=== PATIENT | female | born 1950 | race Two or more races ===

== ENCOUNTER 2025-03-02 17:44 | Emergency (ER) | payer OTHER, SELFPAY ==
--- NOTE | ~2025-03-02 | XR_ITS ---
CLINICAL HISTORY: cellulitis, ?osseous involvement 3 view right hand Comparison: None Findings: Osteopenia. No acute fracture. Diffuse osteoarthritic changes throughout the interphalangeal, 1st carpometacarpal and radiocarpal joints. No erosions. No radiopaque foreign body. Diffuse soft tissue swelling worse along the dorsum of the hand. Heterotopic ossification or chronic avulsion injury of the base of the 5th proximal phalanx with well corticated margins. IMPRESSION: No acute fracture. Diffuse cellulitis. This document has been electronically signed by: Eliud Gaston MD on 03/02/2025 19:49:20
[2025-03-02 18:16] VITALS: BP 187/77; PULSE 91; RESP 18; TEMP 37.1; O2SAT 94; BMI 32.3
--- NOTE | 2025-03-02 18:16 | ED.EXTPRO ---
HPI - Extremity Problem General Chief complaint: Extremity Problem Stated complaint: Right hand injury Time Seen by Provider: 03/02/25 22:00 Source: patient Mode of arrival: ambulatory Limitations: no limitations History of Present Illness ED Provider: HPI Narrative: Patient's history of diabetes noticed small redness on the dorsum of the right hand on 02/28 no open wound seen at urgent care center started on doxycycline comes here for worsening of the redness spreading all the way to the forearm and the dorsum of the hand no fever no chills no history of gout no history of cellulitis in the past no fever or chills Related Data Previous Rx's ?Medication ?Instructions ?Recorded amoxicillin 875 mg-potassium 1 tab PO BID #20 tabs 03/03/25 clavulanate 125 mg tablet Allergies Allergy/AdvReac Type Severity Reaction Status Date / Time No Known Allergies Allergy Verified 03/02/25 18:20 Review of Systems Review of Systems: Yes all other systems are reviewed and are negative PMFSH Social History Social History Smoked in Last 30 Days: Yes Use of substances other than those prescribed or required for medical reasons: No Advance Directives: No Advance Directives Information Provided: No Do you have a plan to hurt others: No Plan Physical Exam Vital Signs: Vital Signs: Last Vital Signs Temp 98.7 F 03/03/25 01:40 Pulse 74 03/03/25 01:40 Resp 14 03/03/25 01:40 BP 00/00 L 03/03/25 01:40 Pulse Ox 96 03/03/25 01:40 O2 Del Method Room Air 03/03/25 01:40 BMI result Body Mass Index 32.3 Appearance: Alert. Oriented X3. No acute distress. Eyes: No pallor or icterus ENT: Pharynx normal. Oral Mucosa moist Neck: Normal inspection. Neck supple. CVS: Normal heart rate and rhythm. Pulses normal. Respiratory: No respiratory distress. Equal air entry bilateral, no wheezing/rales/rhonchi Abdomen: Soft and nontender. Bowel sounds are present, no mass palpable, no CVA tenderness Skin: Skin warm and dry. Right hand swelling of the dorsum with a erythema no open wound erythematous spreading all the way to the forearm neurovascular intact Extremities: No lower extremity edema. No calf tenderness Neuro: Oriented X 3. No motor deficit. No sensory deficit.No cerebellar signs , cranial nerves II-XII intact Course Course Course Narrative: This is an RME performed by Wally Unger CNP: Additional HPI, ROS, PE not included below will be deferred to primary provider. Patient is a 70-day-old female who presents to emergency department for evaluation she reports that she awoke from sleep 3 days ago with redness and swelling to the hand she thought perhaps she had gotten bit by something in her sleep. She presented to an urgent care that day, was diagnosed with cellulitis, prescribed a course of doxycycline, has taken 4 doses thus far, symptoms have significantly worsened. Can not move/wrist at this point. Denies fevers/ chills. Plan: serum labs, XR Medications Administered Discontinued Medications Generic Name Dose Route Start Last Admin Trade Name Freq PRN Reason Stop Dose Admin Vancomycin HCl 1,500 mg/ 500 mls @ 333.333 mls/hr 03/02/25 22:23 03/03/25 00:52 Sodium Chloride IV 03/02/25 23:52 Infused ONCE ONE Infusion Medical Decision Making Medical Decision Making [facility] Narrative: Patient with worsening of the cellulitis of the right hand without any open wound on oral antibiotics patient is refusing admission at this time will give a dose of vancomycin and add Augmentin , and strongly suggest for her to be admitted Lab Data [facility] Lab Attestation statement: I reviewed the patient's lab results. 03/02/25 18:41 03/02/25 18:41 Labs: Lab Results 03/02/25 Range/Units 18:41 WBC 13.4 H (4.8-10.8) X10*3/uL RBC 4.00 L (4.20-5.50) X10*6/uL Hgb 10.3 L (12.0-16.0) g/dl Hct 31.7 L (37.0-47.0) % MCV 79.3 L (80.0-98.0) fL MCH 25.8 L (27.0-33.0) pg MCHC 32.5 (31.0-35.0) g/dl RDW 14.6 (11.0-16.0) % Plt Count 207 (160-400) X10*3/uL MPV 9.6 (9.4-12.3) fL Immature Gran % (Auto) 0.4 (0.0-0.4) % Neut % (Auto) 74.8 H (45-73) % Lymph % (Auto) 13.5 L (20-40) % [place] % (Auto) 10.4 (2-11) % Eos % (Auto) 0.8 (0-4) % Baso % (Auto) 0.1 (0-2) % Lymph # (Auto) 1.8 (1.2-4.9) X10*3/uL [place] # (Auto) 1.4 H (0.1-1.2) X10*3/uL Eos # (Auto) 0.1 (0.0-0.4) X10*3/uL Baso # (Auto) 0.0 (0.0-0.2) X10*3/uL Abs Immat Gran (auto) 0.05 H (0.00-0.03) X10*3/uL Absolute Neuts (auto) 10.0 H (2.0-8.3) x10*3/uL Absolute Nucleated RBC 0.000 (0.0-0.012) X10*3/uL Nucleated RBC % (auto) 0.0 (0.0-0.2) /100WBC ESR 53 H (0-20) MM/HR Sodium 135 (135-145) mmol/L Potassium 4.4 (3.3-5.1) mmol/L Chloride 102 (96-108) mmol/L Carbon Dioxide 24 (22-29) mmol/L Anion Gap 13 (12-20) BUN 21 H (9-16) mg/dL Creatinine 0.91 (0.5-1.4) mg/dL Estim Creat Clear Calc 49.0 Estimated GFR > 60 Random Glucose 217 H (60-115) mg/dL Lactic Acid 1.4 (0.5-2.0) mmol/L Uric Acid 3.7 (2.4-5.7) mg/dL Calcium 9.2 (8.4-10.2) mg/dL Total Bilirubin 0.3 (0.0-1.0) mg/dL AST 11 (5-31) U/L ALT 9 (0-31) U/L Alkaline Phosphatase 61 (39-117) U/L C-Reactive Protein 6.54 H (< or = 0.50) mg/dL Total Protein 6.4 L (6.5-8.0) g/dL Albumin 3.7 (3.5-5.0) g/dL Discharge Plan Discharge Clinical Impression: Cellulitis Patient Disposition: Left Against Medical Advice Instructions: Cellulitis (ED) Additional Instructions: You have signed against medical advice it is prefer that you need to get IV antibiotics for your infection Continue take your doxycycline Start taking Augmentin 1 tablet twice a day for 10 days Report to the ER if redness/pain does not get better Keep your right arm elevated Prescriptions: New amoxicillin-pot clavulanate 875-125 mg tablet 1 tab PO BID Qty: 20 0RF Stand Alone Forms: Against Medical Advice Interventions: ED Discharge Assessment Last Done: 03/03/25 01:40 Discharge Date/Time: 03/03/25 01:41 Print Language: British
[2025-03-02 18:48] LABS: MANUAL DIFF FLAG NO
[2025-03-02 18:50] LABS: Basophils Percent Auto 0.1 % (0-2); Eosinophils Absolute Auto 0.1 X10*3/uL (0.0-0.4); Eosinophils Percent Auto 0.8 % (0-4); Hematocrit 31.7 % (37.0-47.0); Hemoglobin 10.3 g/dl (12.0-16.0); Imm Gran Abs Auto 0.05 X10*3/uL (0.00-0.03); Imm Gran Pct Auto 0.4 % (0.0-0.4); Lymphocytes Absolute Auto 1.8 X10*3/uL (1.2-4.9); Lymphocytes Percent Auto 13.5 % (20-40); Mean Corpuscular HGB Conc 32.5 g/dl (31.0-35.0); Mean Corpuscular Hemoglobin 25.8 pg (27.0-33.0); Mean Corpuscular Volume 79.3 fL (80.0-98.0); Mean Platelet Volume 9.6 fL (9.4-12.3); Monocytes Absolute Auto 1.4 X10*3/uL (0.1-1.2); Monocytes Percent Auto 10.4 % (2-11); Neutrophils Percent Auto 74.8 % (45-73); Platelet Count 207 X10*3/uL (160-400); Red Cell Distribution Width 14.6 % (11.0-16.0); White Blood Count 13.4 X10*3/uL (4.8-10.8)
[2025-03-02 19:03] LABS: Lactic Acid 1.4 mmol/L (0.5-2.0)
[2025-03-02 19:10] LABS: Alanine Aminotransferase 9 U/L (0-31); Albumin Level 3.7 g/dL (3.5-5.0); Alkaline Phosphatase 61 U/L (39-117); Anion Gap 13 (12-20); Aspartate Amino Transferase 11 U/L (5-31); Bilirubin Total 0.3 mg/dL (0.0-1.0); Blood Urea Nitrogen 21 mg/dL (9-16); C Reactive Protein 6.54 mg/dL (< or = 0.50); Calcium 9.2 mg/dL (8.4-10.2); Carbon Dioxide 24 mmol/L (22-29); Chloride 102 mmol/L (96-108); Estimated Glomerular Filt Rate > 60; Glucose Random 217 mg/dL (60-115); Potassium 4.4 mmol/L (3.3-5.1); Sodium 135 mmol/L (135-145); Total Protein 6.4 g/dL (6.5-8.0); Uric Acid 3.7 mg/dL (2.4-5.7)
[2025-03-02 19:30] LABS: Erythrocyte Sedimentation Rate 53 MM/HR (0-20)
[2025-03-02] MEDS: vancomycin HCL 1,500 MG in 0.9 % Sodium Chloride 500 ML 333.33 MG IV (22:56)
[2025-03-03 01:37] VITALS: BP 00/00; PULSE 74; RESP 14; TEMP 37.1; O2SAT 96
--- NOTE | 2025-03-03 01:39 | PC.NURSE ---
pt refused admission ama formed signed iv removed at discharge pt refused bp on bilat arms states its too tight pt educated on importance of vs pt verbalized understanding of discharge
[2025-03-03 01:40] VITALS: BP 00/00; PULSE 74; RESP 14; TEMP 37.1; O2SAT 96
== END 2025-03-03 01:41 | disposition left against medical advice (07) ==
PROVIDERS: Nurse Practitioner Family; Emergency Provider Internal Medicine
DX: L03.113 Cellulitis of right upper limb (principal); M79.89 Other specified soft tissue disorders; Z53.29 Procedure and treatment not carried out because of patient's decision for other reasons
CPT/HCPCS: 36415; 73120; 80053; 83605; 84550; 85025; 85652; 86140; 87040; 96365; 96366; 99284; J3371

== ENCOUNTER → 2025-03-02 18:21 | Outpatient (BNV) | payer OTHER, SELFPAY | PROVIDERS: Visit Provider Radiology Diagnostic Radiology | DX: L03.113 Cellulitis of right upper limb (principal) | CPT/HCPCS: 73120 ==

== ENCOUNTER 2025-03-04 10:06 | Inpatient (IN) | payer OTHER, SELFPAY ==
[2025-03-04 10:47] VITALS: BP 154/71; PULSE 84; RESP 20; TEMP 37.2; O2SAT 97; BMI 21.2
--- NOTE | 2025-03-04 11:26 | MHC.EDTECH ---
this pct approaches patient in wr to escort them to tech triage area for bloodwork ordered by triage provider. patient states she only had blood drawn one day ago and would rather wait for ed provider to see them first to assess if the blood work is necessary. sourcing internship and provider aware. head charger aware. this pct advised to yunier patient the request of delaying their bloodwork.\ until further evaluation.
--- NOTE | 2025-03-04 11:58 | ED.EXTPRO ---
HPI - Extremity Problem General Chief complaint: Extremity Injury, Upper Stated complaint: arm swelling Time Seen by Provider: 03/04/25 11:58 Source: patient and RN notes reviewed Limitations: no limitations History of Present Illness HPI Narrative: 74-year-old female who denies significant medical history, returns for evaluation of right hand, wrist, swelling and edema. Patient states that she awoke on February 28 to a painful and slightly swollen right wrist. Patient states she went to urgent care at that time and was prescribed doxycycline. Patient states that she has been taking the medication however she had continued swelling. She reported to the emergency department on March 02 in her visit extended into March 03, where she had labs and imaging and was recommended for admission. However the patient states she had an obligation she needed to tend to yesterday and was not able to stay. Patient states she returned today because of continued swelling and redness. Patient states she has had decreased range of motion in her hand and wrist. She has noticed slight decrease in the swelling of her fingers. She was prescribed Augmentin and states she has been taking this as prescribed. She denies any fevers chills nausea or vomiting. Denies any trauma. No history of diabetes. She is unsure if she sustained an insect bite or had some small abrasions to the area of redness. Related Data Previous Rx's ?Medication ?Instructions ?Recorded amoxicillin 875 mg-potassium 1 tab PO BID #20 tabs 03/03/25 clavulanate 125 mg tablet Allergies Allergy/AdvReac Type Severity Reaction Status Date / Time No Known Allergies Allergy Verified 03/04/25 10:47 Review of Systems Constitutional: Constitutional: Denies chills, Denies fever(s) and Denies headache(s) Eyes: Eyes: Denies change in vision and Denies other (No redness.) ENT: Denies headache(s), Denies nasal congestion, Denies nasal discharge, Denies neck pain and Denies sore throat Cardiovascular: Cardiovascular: Denies chest pain, Denies palpitations, Denies dyspnea, Denies dyspnea on exertion and Denies orthopnea Respiratory: Respiratory: Denies cough, Denies dyspnea and Denies dyspnea on exertion Gastrointestinal: Gastrointestinal: Denies abdominal pain, Denies melena, Denies hematochezia, Denies diarrhea, Denies nausea and Denies vomiting Genitourinary: Genitourinary: Denies dysuria and Denies urinary urgency Musculoskeletal: Musculoskeletal: Denies back pain, Denies muscle weakness, Denies neck pain and Denies numbness Integumentary/Breasts: Skin/Breast: Reports rash and Reports skin swelling Neurologic: Denies headache(s), Denies focal weakness and Denies numbness Psychiatric: Psychiatric: Denies depression Endocrine: Endocrine: Denies palpitations [facility] Past Medical History Attestation statement: The following information was validated with the patient. [facility] Narrative: Patient denies significant past medical history. No diabetes. Social History Social History Advance Directives: No Advance Directives Information Provided: Yes Physical Exam Vital Signs: Vital Signs: Last Vital Signs Temp 98.3 F 03/04/25 12:53 Pulse 82 03/04/25 12:53 Resp 16 03/04/25 12:53 BP 133/79 03/04/25 12:53 Pulse Ox 97 03/04/25 12:53 O2 Del Method Room Air 03/04/25 12:53 BMI result Body Mass Index 21.2 Const: General: cooperative and no acute distress Resp: Auscultation: clear to auscultation bilaterally Cardio: Rate: regular rate Rhythm: regular rhythm Skin: Other: Extrem: Other: Chocolate Finisher is 5/5 on the left. 4/5 on the right secondary to edema and pain. The fingers are blanched but motor and sensation is intact. Radial pulses are +2 and equal bilaterally. Decreased range of motion at the right wrist secondary to pain. No epitrochlear or axillary lymphadenopathy. Course Course Course Narrative: 1:45 p.m. reviewed all labs with the patient. She is tolerating antibiotics without difficulty. Message to Dr. Nick for transfer of care. Medications Administered Discontinued Medications Generic Name Dose Route Start Last Admin Trade Name Freq PRN Reason Stop Dose Admin Sodium Chloride 1,000 mls @ 999 mls/hr 03/04/25 12:15 03/04/25 14:03 Ns IV 03/04/25 13:15 Infused .Q1H1M REGINALDO Infusion Cefepime HCl 2 gm/ Sodium 50 mls @ 100 mls/hr 03/04/25 12:09 03/04/25 13:16 Chloride IV 03/04/25 12:38 Infused ONCE ONE Infusion Sodium Chloride 1,476 mls @ 1,476 mls/hr 03/04/25 12:09 03/04/25 14:03 Ns 30 ml/kg infuse over 1 hr (1476 ml) 03/04/25 13:08 1,476 mls/hr IV Administration .Q1H STA Vancomycin HCl 1,250 mg/ 250 mls @ 166.667 mls/hr 03/04/25 12:15 03/04/25 13:19 Sodium Chloride IV 03/04/25 13:44 166.67 mls/hr ONCE ONE Administration Medical Decision Making Medical Decision Making MDM Narrative: 74-year-old female who denies significant past medical history, returns for evaluation of right hand and wrist redness, edema. Patient states that the redness has increased on the dorsal aspect and has also noticed some skin changes on the anterior aspect of the right forearm. She denies any fevers or chills. She does report improved range of motion of her fingers from within the last 24 hours. She remains on doxycycline and Augmentin. The patient is agreeable to repeat labs and IV antibiotics as well as hospital admission. Patient currently has been on antibiotics and she has negative blood cultures from March 02. Defer on repeat blood cultures at this time. X-ray also from this date did not reveal any acute process. Differential Diagnosis Differential Diagnoses: The differential diagnosis associated with the presentation includes Sepsis Cellulitis Abscess Folliculitis Admission/Observation Consideration of admission/observation: Escalation of care including admission/observation considered Consult Healthcare Provider Management of the patient was discussed with: Hospitalist Lab Data [facility] Lab Attestation statement: I reviewed the patient's lab results. 03/04/25 12:37 03/04/25 12:37 Labs: Lab Results 03/04/25 03/04/25 Range/Units 12:37 12:38 WBC 12.9 H (4.8-10.8) X10*3/uL RBC 3.90 L (4.20-5.50) X10*6/uL Hgb 9.9 L (12.0-16.0) g/dl Hct 31.0 L (37.0-47.0) % MCV 79.5 L (80.0-98.0) fL MCH 25.4 L (27.0-33.0) pg MCHC 31.9 (31.0-35.0) g/dl RDW 14.5 (11.0-16.0) % Plt Count 229 (160-400) X10*3/uL MPV 9.5 (9.4-12.3) fL Immature Gran % (Auto) 0.5 H (0.0-0.4) % Neut % (Auto) 77.0 H (45-73) % Lymph % (Auto) 11.6 L (20-40) % [place] % (Auto) 9.8 (2-11) % Eos % (Auto) 0.8 (0-4) % Baso % (Auto) 0.3 (0-2) % Lymph # (Auto) 1.5 (1.2-4.9) X10*3/uL [place] # (Auto) 1.3 H (0.1-1.2) X10*3/uL Eos # (Auto) 0.1 (0.0-0.4) X10*3/uL Baso # (Auto) 0.0 (0.0-0.2) X10*3/uL Abs Immat Gran (auto) 0.07 H (0.00-0.03) X10*3/uL Absolute Neuts (auto) 9.9 H (2.0-8.3) x10*3/uL Absolute Nucleated RBC 0.000 (0.0-0.012) X10*3/uL Nucleated RBC % (auto) 0.0 (0.0-0.2) /100WBC ESR 63 H (0-20) MM/HR Sodium 134 L (135-145) mmol/L Potassium 4.8 (3.3-5.1) mmol/L Chloride 102 (96-108) mmol/L Carbon Dioxide 22 (22-29) mmol/L Anion Gap 15 (12-20) BUN 25 H (9-16) mg/dL Creatinine 0.75 (0.5-1.4) mg/dL Estim Creat Clear Calc 47.3 Estimated GFR > 60 Random Glucose 140 H (60-115) mg/dL Calcium 9.5 (8.4-10.2) mg/dL Magnesium 1.5 L (1.6-2.6) mg/dL Total Bilirubin 0.3 (0.0-1.0) mg/dL Direct Bilirubin 0.1 (0.0-0.5) mg/dL AST 15 (5-31) U/L ALT 10 (0-31) U/L Alkaline Phosphatase 59 (39-117) U/L C-Reactive Protein 11.05 H (< or = 0.50) mg/dL Total Protein 6.6 (6.5-8.0) g/dL Albumin 3.7 (3.5-5.0) g/dL External Record Review External record reviewed: Inpatient record Prescription Management I considered prescription management with: Antibiotic Discharge Plan Discharge Clinical Impression: Cellulitis Qualifiers: Site of cellulitis: extremity Site of cellulitis of extremity: upper extremity Laterality: right Qualified Code(s): L03.113 - Cellulitis of right upper limb Patient Disposition: Admitted As Inpatient Print Language: Greek
--- NOTE | 2025-03-04 11:58 | PC.NURSE ---
Pt met with in room 26. At this time Pt refusing to allow for blood lab draw. Pt states blood work was done at her previous visit (03/02/25) and is not willing to do more. Pt denies pain at this time. Only complaint at this time is swelling to R hand/arm--swelling is interfering with her ability to use her arm. Awaiting ED provider
--- NOTE | 2025-03-04 11:59 | MHC.EDTECH ---
Patient is refusing labs. RN aware.
[2025-03-04] MEDS: 0.9 % Sodium Chloride 1,000 ML 999 ML IV (12:39)
[2025-03-04] MEDS: cefEPime HCl 2 GM in 0.9 % Sodium Chloride 50 ML IV (12:40)
[2025-03-04 12:47] LABS: MANUAL DIFF FLAG NO
[2025-03-04 12:51] LABS: Basophils Percent Auto 0.3 % (0-2); Eosinophils Absolute Auto 0.1 X10*3/uL (0.0-0.4); Eosinophils Percent Auto 0.8 % (0-4); Hemoglobin 9.9 g/dl (12.0-16.0); Imm Gran Abs Auto 0.07 X10*3/uL (0.00-0.03); Imm Gran Pct Auto 0.5 % (0.0-0.4); Lymphocytes Absolute Auto 1.5 X10*3/uL (1.2-4.9); Lymphocytes Percent Auto 11.6 % (20-40); Mean Corpuscular HGB Conc 31.9 g/dl (31.0-35.0); Mean Corpuscular Hemoglobin 25.4 pg (27.0-33.0); Mean Corpuscular Volume 79.5 fL (80.0-98.0); Mean Platelet Volume 9.5 fL (9.4-12.3); Monocytes Absolute Auto 1.3 X10*3/uL (0.1-1.2); Monocytes Percent Auto 9.8 % (2-11); Neutrophils Absolute Auto 9.9 x10*3/uL (2.0-8.3); Platelet Count 229 X10*3/uL (160-400); Red Cell Distribution Width 14.5 % (11.0-16.0); White Blood Count 12.9 X10*3/uL (4.8-10.8)
[2025-03-04 12:53] VITALS: BP 133/79; PULSE 82; RESP 16; TEMP 36.8; O2SAT 97
[2025-03-04 13:18] LABS: Anion Gap 15 (12-20); Blood Urea Nitrogen 25 mg/dL (9-16); Calcium 9.5 mg/dL (8.4-10.2); Carbon Dioxide 22 mmol/L (22-29); Chloride 102 mmol/L (96-108); Creatinine Clr Calc Pharmacy 47.3; Estimated Glomerular Filt Rate > 60; Glucose Random 140 mg/dL (60-115); Potassium 4.8 mmol/L (3.3-5.1); Sodium 134 mmol/L (135-145)
[2025-03-04 13:18] LABS: Alanine Aminotransferase 10 U/L (0-31); Albumin Level 3.7 g/dL (3.5-5.0); Alkaline Phosphatase 59 U/L (39-117); Aspartate Amino Transferase 15 U/L (5-31); Bilirubin Direct 0.1 mg/dL (0.0-0.5); Bilirubin Total 0.3 mg/dL (0.0-1.0); C Reactive Protein 11.05 mg/dL (< or = 0.50); Magnesium 1.5 mg/dL (1.6-2.6); Total Protein 6.6 g/dL (6.5-8.0)
[2025-03-04] MEDS: vancomycin HCL 1,250 MG in 0.9 % Sodium Chloride 250 ML 166.67 MG IV (13:19)
[2025-03-04 13:31] LABS: Erythrocyte Sedimentation Rate 63 MM/HR (0-20)
[2025-03-04] MEDS: SODIUM CHLORIDE 1476 ML IV (14:03)
--- NOTE | 2025-03-04 14:31 | P.HPHOSP_ITS ---
History of Present Illness Date of Service: 03/04/25 Chief Complaint: Hand pain and swelling A 74 years old lady with PMH of DM, HTN, HLD and morbid obesity presenting to the hospital with worsening right hand and wrist pain and swelling for 4 days. The patient reported waking up to pain in her wrist and dorsal side of hand which has been worsening since. she went to Urgent care and prescribed antibiotics but no significant improvement as swelling, erythema and pain worsened. reporting chills but no fever. she is not sure how did she get it but thinks it is a bug bite. No chest pain, palpitations, SOB, nausea, vomiting, diarrhea or urinary symptoms. In ED has XR showing edema but no bone abnormalities. Will be admitted for IV antibiotics and close monitoring Review of Systems 2 Review of Systems: No fever, chills or weakness No chest pain, palpitation No shortness of breath or coughing No abdominal pain, nausea or vomiting No urinary symptoms Right hand swelling and erythema PMFSH Medical History HLD (hyperlipidemia) Hypertension Diabetes type 2 Social History Household Members: None Housing: House Do you presently have visiting nurse or other home services: No Patient Tobacco Use Status: Never used Tobacco Smoked in Last 30 Days: No Patient Interested in Nicotine Replacement: No Patient Given Instructions on How to Stop Smoking: No Second Hand Smoke Exposure: No Use of substances other than those prescribed or required for medical reasons: No Currently Displaying Signs/Symptoms of Drug Intoxication Withdrawal: No Any prior treatment program specific to substance use: No Have you been hit, kicked, punched, or otherwise hurt by someone within the past year? If so, by whom?: No Do you feel safe in your current relationship?: No Current Relationship Is there a partner from a previous relationship who is making you feel unsafe now?: No Are you made to feel afraid or neglected: No Advance Directives: No Advance Directives Information Provided: Yes Advance Directives on File: No Do you have a plan to hurt others: No Plan Recently lost weight without trying: No How much weight loss: Not applicable Eating poorly because of decreased appetite: No Nutrition screen score: 0 Nutrition Risks: No Nutritional Risk Patient : No : No Poor oral hygiene: No Meds Allergies Allergy/AdvReac Type Severity Reaction Status Date / Time No Known Allergies Allergy Verified 03/04/25 10:47 Active Medications: Current Medications Acetaminophen (Acetaminophen 325 Mg Tablet) 650 mg PO Q6H PRN PRN Reason: Pain, Mild 1-3,fever,headache Calcium Carbonate (Calcium Carbonate 750 Mg Tab.Chew) 750 mg PO Q4H PRN PRN Reason: Heartburn Enoxaparin Sodium (Enoxaparin Sodium 40 Mg/0.4 Ml Syringe) 40 mg SUBCUT Q24H REGINALDO Hydromorphone HCl (Hydromorphone Hcl 1 Mg/Ml Syringe) 0.5 mg IVPUSH Q4H PRN; Protocol PRN Reason: Pain, Moderate(Pain Scale 4-6) Lactated Ringer's (Lr) 1,000 mls @ 100 mls/hr IVCONT .Q10H REGINALDO Piperacillin Sod/Tazobactam (Sod 3.375 gm/ Sodium Chloride) 50 mls @ 100 mls/hr IV Q6H REGINALDO Ibuprofen (Ibuprofen 400 Mg Tablet) 400 mg PO Q6H PRN PRN Reason: Fever or Pain, Mild (Pain Scale 1-3) Magnesium Hydroxide (Milk Of Magnesia 30 Ml Oral.Susp) 30 ml PO DAILY PRN PRN Reason: Constipation Melatonin (Melatonin 3 Mg Tablet) 6 mg PO BEDTIME PRN PRN Reason: Insomnia Morphine Sulfate (Morphine Sulfate 4 Mg/Ml Cartridge) 2 mg IVPUSH Q6H PRN; Protocol PRN Reason: Pain, Severe (Pain Scale 7-10) Ondansetron HCl (Ondansetron Hcl 4 Mg/2 Ml Vial) 4 mg IVPUSH Q8H PRN PRN Reason: Nausea and Vomiting Pharmacy Consult (Consult Rx Vancomycin Dosing) 1 each MISCELLANE DAILY PRN PRN Reason: Consult order Sodium Chloride (0.9 % Sodium Chloride Flush 3 Ml Syringe) [facility] Medications ?Medication ?Instructions ?Recorded ?Confirmed ?Last Taken ?Type doxycycline monohydrate 100 mg 100 mg PO BID 03/04/25 03/04/25 03/04/25 09:00 History capsule ferrous sulfate 325 mg (65 mg 325 mg PO DAILY 03/04/25 03/04/25 03/04/25 09:00 History iron) tablet (iron) glipizide 5 mg tablet 5 mg PO DAILY 03/04/25 03/04/25 03/04/25 09:00 History losartan 50 mg tablet 50 mg PO DAILY 03/04/25 03/04/25 03/04/25 09:00 History metformin 1,000 mg tablet 1,000 mg PO BID 03/04/25 03/04/25 03/04/25 09:00 History omeprazole 20 mg capsule,delayed 20 mg PO DAILY@0630 03/04/25 03/04/25 03/04/25 07:00 History release simvastatin 40 mg tablet 40 mg PO BEDTIME 03/04/25 03/04/25 Unknown History vitamin E 268 mg (400 unit) capsule 268 mg PO DAILY 03/04/25 03/04/25 03/04/25 09:00 History Physical Exam 2 Vital Signs and Narrative: Vital Signs: Last Vital Signs Temp 98.3 F 03/04/25 12:53 Pulse 82 03/04/25 12:53 Resp 16 03/04/25 12:53 BP 133/79 03/04/25 12:53 Pulse Ox 97 03/04/25 12:53 O2 Del Method Room Air 03/04/25 12:53 BMI result Body Mass Index 21.2 Const: Other: Constitutional : Awake, interactive, not in distress Neck : Normal inspection, Supple Cardiovascular : RRR, no JVP, no lower extremity edema Respiratory : good bilateral air entry, no crackles, wheezes or rhonchi Gastrointestinal: soft, lax, Normal bowel sounds, Non tender Skin : Warm, Dry Extremities; Right hand swelling and erythema on the dorsal site extending around her wrist to her forearm with decrease range of motion of the wrist and fingers Neurological : Alert & oriented x3, No focal deficit , Results Labs 03/05/25 08:18 03/05/25 08:18 Labs: Laboratory Results - last 24 hr 03/04/25 03/04/25 12:37 12:38 MCV 79.5 L MCH 25.4 L MCHC 31.9 RDW 14.5 Plt Count 229 MPV 9.5 Immature Gran % (Auto) 0.5 H Neut % (Auto) 77.0 H Lymph % (Auto) 11.6 L [place] % (Auto) 9.8 Eos % (Auto) 0.8 Baso % (Auto) 0.3 Lymph # (Auto) 1.5 [place] # (Auto) 1.3 H Eos # (Auto) 0.1 Baso # (Auto) 0.0 Abs Immat Gran (auto) 0.07 H Absolute Neuts (auto) 9.9 H Absolute Nucleated RBC 0.000 Nucleated RBC % (auto) 0.0 ESR 63 H Anion Gap 15 Estim Creat Clear Calc 47.3 Estimated GFR > 60 Random Glucose 140 H Calcium 9.5 Magnesium 1.5 L Total Bilirubin 0.3 Direct Bilirubin 0.1 AST 15 ALT 10 Alkaline Phosphatase 59 C-Reactive Protein 11.05 H Total Protein 6.6 Albumin 3.7 Assessment and Plan (1) Cellulitis: Qualifiers: Laterality: right Site of cellulitis: extremity Site of cellulitis of extremity: upper extremity Qualified Code(s): L03.113 - Cellulitis of right upper limb Status: Acute (2) Infected hand: Status: Acute (3) Hypomagnesemia: Status: Acute Plan A 74 years old lady with PMH of DM, HTN, HLD and morbid obesity presenting to the hospital with worsening right hand and wrist pain and swelling for 4 days. Right Hand cellulitis Not septic XR showing subcutanous edema Pending cultures Failed OP antibiotics Start IV Vancomycin and Zosyn Keep hand elevated Acute Hypomagnesemia Replacement given, follow Mild Hyponatremia, acute encourage PO intake, repeat BMP DMII Hold PO meds SSI diabetic diet GERD PPI DVT PPx Lovenox The patient will need 2 overnight stay for treatment of hand cellulitis failed outpatient antibiotics with IV antibiotics and correct her electrolytes which can not be done in any less acute setting Quality Stroke Does the patient have a stroke diagnosis?: No VTE Prior VTE?: No VTE Risk Level:: Medical - moderate - high VTE Device Contraindication: Treatment Not Indicated VTE Drug Contraindication: N/A - Med Ordered
[2025-03-04] MEDS: Enoxaparin Sodium 40 MG/0.4 ML SYRINGE SUBCUT (15:01)
[2025-03-04] MEDS: Piperacillin Sodium/Tazobactam 3.375 GM in 0.9 % Sodium Chloride 50 ML IV ×2 (15:01→20:20)
[2025-03-04 15:03] LABS: Lactic Acid 1.3 mmol/L (0.5-2.0)
[2025-03-04 17:23] VITALS: BP 191/74; PULSE 83; RESP 16; TEMP 36.7; O2SAT 97
--- NOTE | 2025-03-04 17:30 | PHA.MEDREC ---
Addendum entered by Maria Teresa Gerard RPh 03/04/25 18:18: [facility] reviewed Original Note: Pharmacy Consult ? Medication Reconciliation Pharmacy has completed the medication reconciliation. Spoke to pt to confirm meds.
[2025-03-04] MEDS: Lactated Ringers 1,000 ML 100 ML IVCONT (17:40)
[2025-03-04 18:51] VITALS: BP 191/74
[2025-03-04] MEDS: Losartan Potassium 50 MG TABLET PO (18:51)
--- NOTE | 2025-03-04 19:05 | PC.NURSE ---
pt medicated per DEC- pt inquired about pm metformin. Metformin currently not ordered- MD Nick notified via [employer]. Per will order
[2025-03-04 19:50] VITALS: BP 193/83; PULSE 88; RESP 16; TEMP 36.8; O2SAT 95
[2025-03-04] MEDS: Atorvastatin Calcium 20 MG TABLET PO (20:21)
[2025-03-04] MEDS: metFORMIN HCl 1,000 MG TABLET 1000 MG PO (20:21)
[2025-03-04] MEDS: Insulin Lispro 100 UNIT/ML 3 ML VIAL SUBCUT (20:24)
[2025-03-04 20:25] LABS: Glucose, Whole Blood 245 mg/dL (60-115)
[2025-03-04] MEDS: Labetalol HCL 100 MG/20 ML VIAL 20 MG IVPUSH (20:30)
--- NOTE | 2025-03-04 20:39 | PC.NURSE ---
pt medicated per mar, tolerated whole well with water. aware of bp, pt medicated at this time.
[2025-03-04 21:12] VITALS: BP 170/78; PULSE 77
[2025-03-05] VITALS (7 sets, daily range): BP systolic 123–187; BP diastolic 65–90; PULSE 69–98; RESP 16–18; TEMP 36.6–37.4; O2SAT 93–98; BMI 34.0
--- NOTE | 2025-03-05 00:09 | MHC.EDTECH ---
This pct assumed care of Patient at 2300 ,Patient awake ,laying in bed ,Patient wanted to have 1 side rail down ,rn aware ,Vitals taken ,call avendano within Pt reach .
--- NOTE | 2025-03-05 01:03 | PC.NURSE ---
assumed care of patient at 0905. report received from deann RODRIGUEZ
[2025-03-05] MEDS: Piperacillin Sodium/Tazobactam 3.375 GM in 0.9 % Sodium Chloride 50 ML IV ×4 (03:08→21:21)
--- NOTE | 2025-03-05 04:00 | PC.NURSE ---
pt resting comfortably on stretcher in no apparent distress, denies any acute pain. warm blanket provided. call avendano within reach, plan of care continues.
[2025-03-05] MEDS: Omeprazole 20 MG CAPSULE.DR PO (05:51)
[2025-03-05 07:21] LABS: Glucose, Whole Blood 127 mg/dL (60-115)
[2025-03-05 08:56] LABS: MANUAL DIFF FLAG NO
[2025-03-05 09:03] LABS: Basophils Percent Auto 0.4 % (0-2); Eosinophils Absolute Auto 0.1 X10*3/uL (0.0-0.4); Eosinophils Percent Auto 0.8 % (0-4); Hematocrit 30.7 % (37.0-47.0); Hemoglobin 9.7 g/dl (12.0-16.0); Imm Gran Abs Auto 0.05 X10*3/uL (0.00-0.03); Imm Gran Pct Auto 0.4 % (0.0-0.4); Lymphocytes Absolute Auto 1.7 X10*3/uL (1.2-4.9); Lymphocytes Percent Auto 15.2 % (20-40); Mean Corpuscular HGB Conc 31.6 g/dl (31.0-35.0); Mean Corpuscular Hemoglobin 25.4 pg (27.0-33.0); Mean Corpuscular Volume 80.4 fL (80.0-98.0); Mean Platelet Volume 9.9 fL (9.4-12.3); Monocytes Absolute Auto 1.2 X10*3/uL (0.1-1.2); Monocytes Percent Auto 10.5 % (2-11); Neutrophils Absolute Auto 8.2 x10*3/uL (2.0-8.3); Neutrophils Percent Auto 72.7 % (45-73); Platelet Count 233 X10*3/uL (160-400); Red Blood Count 3.82 X10*6/uL (4.20-5.50); Red Cell Distribution Width 14.5 % (11.0-16.0); White Blood Count 11.2 X10*3/uL (4.8-10.8)
[2025-03-05 09:20] LABS: Anion Gap 10 (12-20); Blood Urea Nitrogen 18 mg/dL (9-16); Carbon Dioxide 24 mmol/L (22-29); Chloride 105 mmol/L (96-108); Estimated Glomerular Filt Rate > 60; Glucose Random 132 mg/dL (60-115); Potassium 3.9 mmol/L (3.3-5.1); Sodium 135 mmol/L (135-145)
--- NOTE | 2025-03-05 09:51 | HO.PM.IMPN ---
Subjective Subjective Date of Service: 03/05/25 Interval History: Seen and evaluated this morning Erythema and swelling improving No fever but chills No other events Review of Systems Review of Systems: Yes all other systems are reviewed and are negative Physical Exam Vital Signs: Vital Signs: Last Vital Signs Temp 99.3 F 03/05/25 06:53 Pulse 69 03/05/25 06:53 Resp 18 03/05/25 06:53 BP 149/65 H 03/05/25 06:53 Pulse Ox 96 03/05/25 06:53 O2 Del Method Room Air 03/05/25 06:53 BMI result Body Mass Index 34.0 Const: Other: Constitutional : Awake, interactive, not in distress Neck : Normal inspection, Supple Cardiovascular : RRR, no JVP, no lower extremity edema Respiratory : good bilateral air entry, no crackles, wheezes or rhonchi Gastrointestinal: soft, lax, Normal bowel sounds, Non tender Skin : Warm, Dry Extremities; Right hand swelling and erythema on the dorsal site extending around her wrist to her forearm with decrease range of motion of the wrist and fingers mildly improving Neurological : Alert & oriented x3, No focal deficit , Objective Data Active Medications Acetaminophen (Acetaminophen 325 Mg Tablet) 650 mg PO Q6H PRN PRN Reason: Pain, Mild 1-3,fever,headache Atorvastatin Calcium (Atorvastatin Calcium 20 Mg Tablet) 20 mg PO BEDTIME [facility] Last Admin: 03/04/25 20:21 Dose: 20 mg Documented By: JAYDA Calcium Carbonate (Calcium Carbonate 750 Mg Tab.Chew) 750 mg PO Q4H PRN PRN Reason: Heartburn Enoxaparin Sodium (Enoxaparin Sodium 40 Mg/0.4 Ml Syringe) 40 mg SUBCUT Q24H [facility] Last Admin: 03/04/25 15:01 Dose: 40 mg Documented By: BEAN Ferrous Sulfate (Ferrous Sulfate 324 Mg Tablet.Dr) 324 mg PO DAILY [facility] Hydromorphone HCl (Hydromorphone Hcl 1 Mg/Ml Syringe) 0.5 mg IVPUSH Q4H PRN; Protocol PRN Reason: Pain, Moderate(Pain Scale 4-6) Piperacillin Sod/Tazobactam (Sod 3.375 gm/ Sodium Chloride) 50 mls @ 100 mls/hr IV Q6H [facility] Last Infusion: 03/05/25 03:47 Dose: Infused Documented By: LUDWIN Vancomycin HCl 1,250 mg/ (Sodium Chloride) 250 mls @ 166.667 mls/hr IV Q24H [facility] Ibuprofen (Ibuprofen 400 Mg Tablet) 400 mg PO Q6H PRN PRN Reason: Fever or Pain, Mild (Pain Scale 1-3) Insulin Human Lispro (Insulin Lispro 100 Unit/Ml 3 Ml Vial) 0 unit SUBCUT QIDACHS [facility]; Protocol Last Admin: 03/05/25 07:22 Dose: Not Given Documented By: PJ Non-Admin Reason: No Insulin Coverage Losartan Potassium (Losartan Potassium 50 Mg Tablet) 50 mg PO DAILY [facility]; Protocol Last Admin: 03/04/25 18:51 Dose: 50 mg Documented By: NAZIA Magnesium Hydroxide (Milk Of Magnesia 30 Ml Oral.Susp) 30 ml PO DAILY PRN PRN Reason: Constipation Melatonin (Melatonin 3 Mg Tablet) 6 mg PO BEDTIME PRN PRN Reason: Insomnia Metformin HCl (Metformin Hcl 1,000 Mg Tablet) 1,000 mg PO BID [facility] Last Admin: 03/04/25 20:21 Dose: 1,000 mg Documented By: JAYDA Morphine Sulfate (Morphine Sulfate 4 Mg/Ml Cartridge) 2 mg IVPUSH Q6H PRN; Protocol PRN Reason: Pain, Severe (Pain Scale 7-10) Omeprazole (Omeprazole 20 Mg Capsule.Dr) 20 mg PO DAILY@0630 [facility] Last Admin: 03/05/25 05:51 Dose: 20 mg Documented By: OLIVIA Ondansetron HCl (Ondansetron Hcl 4 Mg/2 Ml Vial) 4 mg IVPUSH Q8H PRN PRN Reason: Nausea and Vomiting Pharmacy Consult (Consult Rx Vancomycin Dosing) 1 each MISCELLANE DAILY PRN PRN Reason: Consult order Sodium Chloride (0.9 % Sodium Chloride Flush 3 Ml Syringe) 3 ml IVFLUSH QSHIFT [facility] Last Admin: 03/05/25 01:03 Dose: Not Given Documented By: LUDWIN Non-Admin Reason: Previously Administered Labs 03/05/25 08:18 03/05/25 08:18 Labs: Laboratory Results - last 24 hr 03/04/25 03/04/25 03/04/25 12:37 12:38 14:38 MCV 79.5 L MCH 25.4 L MCHC 31.9 RDW 14.5 Plt Count 229 MPV 9.5 Immature Gran % (Auto) 0.5 H Neut % (Auto) 77.0 H Lymph % (Auto) 11.6 L Fountain % (Auto) 9.8 Eos % (Auto) 0.8 Baso % (Auto) 0.3 Lymph # (Auto) 1.5 Fountain # (Auto) 1.3 H Eos # (Auto) 0.1 Baso # (Auto) 0.0 Abs Immat Gran (auto) 0.07 H Absolute Neuts (auto) 9.9 H Absolute Nucleated RBC 0.000 Nucleated RBC % (auto) 0.0 ESR 63 H Anion Gap 15 Estim Creat Clear Calc 47.3 Estimated GFR > 60 POC Glucose Random Glucose 140 H Lactic Acid 1.3 Calcium 9.5 Magnesium 1.5 L Total Bilirubin 0.3 Direct Bilirubin 0.1 AST 15 ALT 10 Alkaline Phosphatase 59 C-Reactive Protein 11.05 H Total Protein 6.6 Albumin 3.7 03/04/25 03/05/25 03/05/25 20:20 07:08 08:18 MCV 80.4 MCH 25.4 L MCHC 31.6 RDW 14.5 Plt Count 233 MPV 9.9 Immature Gran % (Auto) 0.4 Neut % (Auto) 72.7 Lymph % (Auto) 15.2 L Fountain % (Auto) 10.5 Eos % (Auto) 0.8 Baso % (Auto) 0.4 Lymph # (Auto) 1.7 Fountain # (Auto) 1.2 Eos # (Auto) 0.1 Baso # (Auto) 0.0 Abs Immat Gran (auto) 0.05 H Absolute Neuts (auto) 8.2 Absolute Nucleated RBC 0.000 Nucleated RBC % (auto) 0.0 ESR Anion Gap 10 L Estim Creat Clear Calc 62.0 Estimated GFR > 60 POC Glucose 245 H 127 H Random Glucose 132 H Lactic Acid Calcium 9.0 Magnesium Total Bilirubin Direct Bilirubin AST ALT Alkaline Phosphatase C-Reactive Protein Total Protein Albumin Assessment and Plan (1) Hypomagnesemia: Status: Acute (2) Infected hand: Status: Acute (3) Cellulitis: Status: Acute Plan A 74 years old lady with PMH of DM, HTN, HLD and morbid obesity presenting to the hospital with worsening right hand and wrist pain and swelling for 4 days. Right Hand cellulitis Not septic XR showing subcutanous edema Pending cultures Failed OP antibiotics Start IV Vancomycin and Zosyn Keep hand elevated Follow Vancomycin trough Acute Hypomagnesemia Replacement given, follow Mild Hyponatremia, acute encourage PO intake, repeat BMP DMII Hold PO meds SSI diabetic diet GERD PPI DVT PPx Lovenox The patient will need overnight stay for treatment of hand cellulitis failed outpatient antibiotics with IV antibiotics and correct her electrolytes which can not be done in any less acute setting Quality Stroke Does the patient have a stroke diagnosis?: No VTE Prior VTE?: No VTE Risk Level:: Medical - moderate - high VTE Device Contraindication: Treatment Not Indicated VTE Drug Contraindication: N/A - Med Ordered
[2025-03-05] MEDS: Losartan Potassium 50 MG TABLET PO (10:27)
[2025-03-05] MEDS: metFORMIN HCl 1,000 MG TABLET 1000 MG PO ×2 (10:30→21:12)
[2025-03-05] MEDS: Ferrous Sulfate 324 MG TABLET.DR PO (10:30)
[2025-03-05] MEDS: 0.9 % Sodium Chloride Flush 3 ML SYRINGE IVFLUSH ×3 (10:30→21:22)
--- NOTE | 2025-03-05 10:32 | MHC.CM.PN ---
PT LIVES ALONE IS INDEPENDENT HAS NO SERVICES HAS OWN [facility] HOME [facility]
[2025-03-05 11:37] LABS: Glucose, Whole Blood 139 mg/dL (60-115)
[2025-03-05] MEDS: vancomycin HCL 1,250 MG in 0.9 % Sodium Chloride 250 ML 166.67 MG IV (14:46)
[2025-03-05] MEDS: Enoxaparin Sodium 30 MG/0.3 ML SYRINGE SUBCUT (14:54)
[2025-03-05 16:20] LABS: Glucose, Whole Blood 112 mg/dL (60-115)
--- NOTE | 2025-03-05 19:59 | PC.NURSE ---
pt' R hand noted to be more red and swollen at approx 1730. Dr. Nick made aware and down to see patient and pt aware of new orders. Pt states she has been using the hand more and more active today so less elevating. She was encouraged to elevate when sitting or in bed.
[2025-03-05 20:13] LABS: Glucose, Whole Blood 160 mg/dL (60-115)
[2025-03-05] MEDS: Atorvastatin Calcium 20 MG TABLET PO (21:12)
[2025-03-05] MEDS: Insulin Lispro 100 UNIT/ML 3 ML VIAL SUBCUT (21:13)
[2025-03-06] MEDS: Piperacillin Sodium/Tazobactam 3.375 GM in 0.9 % Sodium Chloride 50 ML IV ×2 (03:18→08:49)
[2025-03-06 03:25] VITALS: BP 167/84; PULSE 76; RESP 18; TEMP 36.7; O2SAT 96
[2025-03-06] MEDS: Omeprazole 20 MG CAPSULE.DR PO (06:15)
[2025-03-06 07:13] VITALS: BP 148/82; PULSE 77; RESP 16; TEMP 36.8; O2SAT 97
[2025-03-06 07:16] LABS: Glucose, Whole Blood 108 mg/dL (60-115)
--- NOTE | 2025-03-06 07:52 | PM.CNOR ---
History of Present Illness HPI Consult date: 03/06/25 Chief complaint: Cellulitis Narrative: 74 yo female admitted to the medical service for right hand cellulitis. Onset 02/28/25, she noticed swelling and pain. She was seen at an urgent care and give doxycycline without good effect. 2-3 days later, She presented to the Ed with worsening pain and swelling. Started on IV abx and admission to medicine. Orthopedics constulted for recommendations. Patient states she feels better this morning. Review of Systems Review of Systems: Yes all other systems are reviewed and are negative [facility] Past Medical History Medical History HLD (hyperlipidemia) Hypertension Diabetes type 2 Social History Social History Household Members: None Housing: House Do you presently have visiting nurse or other home services: No Patient Tobacco Use Status: Never used Tobacco Smoked in Last 30 Days: No Patient Interested in Nicotine Replacement: No Patient Given Instructions on How to Stop Smoking: No Second Hand Smoke Exposure: No Use of substances other than those prescribed or required for medical reasons: No Currently Displaying Signs/Symptoms of Drug Intoxication Withdrawal: No Any prior treatment program specific to substance use: No Have you been hit, kicked, punched, or otherwise hurt by someone within the past year? If so, by whom?: No Do you feel safe in your current relationship?: No Current Relationship Is there a partner from a previous relationship who is making you feel unsafe now?: No Are you made to feel afraid or neglected: No Advance Directives: No Advance Directives Information Provided: Yes Advance Directives on File: No Do you have a plan to hurt others: No Plan Recently lost weight without trying: No How much weight loss: Not applicable Eating poorly because of decreased appetite: No Nutrition screen score: 0 Nutrition Risks: No Nutritional Risk Patient : No : No Poor oral hygiene: No service: No Meds Allergies Allergy/AdvReac Type Severity Reaction Status Date / Time No Known Allergies Allergy Verified 03/04/25 10:47 Active Medications: Current Medications Acetaminophen (Acetaminophen 325 Mg Tablet) 650 mg PO Q6H PRN PRN Reason: Pain, Mild 1-3,fever,headache Atorvastatin Calcium (Atorvastatin Calcium 20 Mg Tablet) 20 mg PO BEDTIME [facility] Last Admin: 03/05/25 21:12 Dose: 20 mg Calcium Carbonate (Calcium Carbonate 750 Mg Tab.Chew) 750 mg PO Q4H PRN PRN Reason: Heartburn Enoxaparin Sodium (Enoxaparin Sodium 30 Mg/0.3 Ml Syringe) 30 mg SUBCUT Q24H [facility] Last Admin: 03/05/25 14:54 Dose: 30 mg Ferrous Sulfate (Ferrous Sulfate 324 Mg Tablet.Dr) 324 mg PO DAILY [facility] Last Admin: 03/05/25 10:30 Dose: 324 mg Hydromorphone HCl (Hydromorphone Hcl 1 Mg/Ml Syringe) 0.5 mg IVPUSH Q4H PRN; Protocol PRN Reason: Pain, Moderate(Pain Scale 4-6) Piperacillin Sod/Tazobactam (Sod 3.375 gm/ Sodium Chloride) 50 mls @ 100 mls/hr IV Q6H [facility] Last Infusion: 03/06/25 03:54 Dose: Infused Vancomycin HCl 1,250 mg/ (Sodium Chloride) 250 mls @ 166.667 mls/hr IV Q24H [facility] Last Infusion: 03/05/25 16:30 Dose: Infused Ibuprofen (Ibuprofen 400 Mg Tablet) 400 mg PO Q6H PRN PRN Reason: Fever or Pain, Mild (Pain Scale 1-3) Insulin Human Lispro (Insulin Lispro 100 Unit/Ml 3 Ml Vial) 0 unit SUBCUT QIDACHS [facility]; Protocol Last Admin: 03/05/25 21:13 Dose: 2 unit Losartan Potassium (Losartan Potassium 50 Mg Tablet) 50 mg PO DAILY [facility]; Protocol Last Admin: 03/05/25 10:27 Dose: 50 mg Magnesium Hydroxide (Milk Of Magnesia 30 Ml Oral.Susp) 30 ml PO DAILY PRN PRN Reason: Constipation Melatonin (Melatonin 3 Mg Tablet) 6 mg PO BEDTIME PRN PRN Reason: Insomnia Metformin HCl (Metformin Hcl 1,000 Mg Tablet) 1,000 mg PO BID [facility] Last Admin: 03/05/25 21:12 Dose: 1,000 mg Morphine Sulfate (Morphine Sulfate 4 Mg/Ml Cartridge) 2 mg IVPUSH Q6H PRN; Protocol PRN Reason: Pain, Severe (Pain Scale 7-10) Omeprazole (Omeprazole 20 Mg Capsule.) 20 mg PO DAILY@0630 [facility] Last Admin: 03/06/25 06:15 Dose: 20 mg Ondansetron HCl (Ondansetron Hcl 4 Mg/2 Ml Vial) 4 mg IVPUSH Q8H PRN PRN Reason: Nausea and Vomiting Pharmacy Consult (Consult Rx Vancomycin Dosing) 1 each MISCELLANE DAILY PRN PRN Reason: Consult order Sodium Chloride (0.9 % Sodium Chloride Flush 3 Ml Syringe) 3 ml IVFLUSH [facility] Last Admin: 03/05/25 21:22 Dose: 3 ml Home Medications ?Medication ?Instructions ?Recorded ?Confirmed ?Last Taken ?Type doxycycline monohydrate 100 mg 100 mg PO BID 03/04/25 03/04/25 03/04/25 09:00 History capsule ferrous sulfate 325 mg (65 mg 325 mg PO DAILY 03/04/25 03/04/25 03/04/25 09:00 History iron) tablet (iron) glipizide 5 mg tablet 5 mg PO DAILY 03/04/25 03/04/25 03/04/25 09:00 History losartan 50 mg tablet 50 mg PO DAILY 03/04/25 03/04/25 03/04/25 09:00 History metformin 1,000 mg tablet 1,000 mg PO BID 03/04/25 03/04/25 03/04/25 09:00 History omeprazole 20 mg capsule,delayed 20 mg PO DAILY@0630 03/04/25 03/04/25 03/04/25 07:00 History release simvastatin 40 mg tablet 40 mg PO BEDTIME 03/04/25 03/04/25 Unknown History vitamin E 268 mg (400 unit) capsule 268 mg PO DAILY 03/04/25 03/04/25 03/04/25 09:00 History Physical Exam Vital Signs: Vital Signs: Last Vital Signs Temp 98.2 F 03/06/25 07:13 Pulse 77 03/06/25 07:13 Resp 16 03/06/25 07:13 BP 148/82 H 03/06/25 07:13 Pulse Ox 97 03/06/25 07:13 O2 Del Method Room Air 03/06/25 07:13 BMI result Body Mass Index 34.0 Const: General: cooperative, healthy appearing, comfortable and no acute distress Extrem: Other: Right hand cellulitis present No abscess formation She is able to extend all digits She can attempt a fist but unable to completly close hand No pain along the flexor tendons NVi Results Labs 03/05/25 08:18 03/05/25 08:18 Labs: Abnormal lab results 03/05/25 03/05/25 03/05/25 Range/Units 08:18 11:27 19:23 WBC 11.2 H (4.8-10.8) X10*3/uL RBC 3.82 L (4.20-5.50) X10*6/uL Hgb 9.7 L (12.0-16.0) g/dl Hct 30.7 L (37.0-47.0) % MCH 25.4 L (27.0-33.0) pg Lymph % (Auto) 15.2 L (20-40) % Abs Immat Gran (auto) 0.05 H (0.00-0.03) X10*3/uL Anion Gap 10 L (12-20) BUN 18 H (9-16) mg/dL POC Glucose 139 H 160 H (60-115) mg/dL Random Glucose 132 H (60-115) mg/dL H & H 03/04/25 03/05/25 Range/Units 12:37 08:18 Hgb 9.9 L 9.7 L (12.0-16.0) g/dl Hct 31.0 L 30.7 L (37.0-47.0) % All other labs normal. Assessment and Plan (1) Cellulitis: Qualifiers: Laterality: right Site of cellulitis: extremity Site of cellulitis of extremity: upper extremity Qualified Code(s): L03.113 - Cellulitis of right upper limb Status: Acute Plan Continue IV abx OT for hand rom elevation no orthopedic intervention warranted Procedures Date of Service Date of Service: 03/06/25
[2025-03-06] MEDS: metFORMIN HCl 1,000 MG TABLET 1000 MG PO (08:47)
[2025-03-06 08:50] VITALS: BP 162/84
[2025-03-06] MEDS: Losartan Potassium 50 MG TABLET PO (08:50)
[2025-03-06] MEDS: Ferrous Sulfate 324 MG TABLET.DR PO (08:54)
[2025-03-06] MEDS: 0.9 % Sodium Chloride Flush 3 ML SYRINGE IVFLUSH (08:54)
--- NOTE | 2025-03-06 10:52 | PM.DS ---
DS: Providers Provider Date of Service: 03/06/25 Date of admission: 03/04/25 14:34 Date of discharge: 03/06/25 Primary care physician: Unknown Physician Consults: 03/05/25 18:56 Consult to Orthopedics Routine Consulting Provider: [facility] [place] [facility] Reason for consultation: Hand cellulitis for eval and rec. DS: Diagnosis Discharge Diagnosis (1) Cellulitis: Status: Acute (2) Hypomagnesemia: Status: Acute (3) Infected hand: Status: Acute DS: Summary Hospital Course Hospital Course: Admission note HPI A 74 years old lady with PMH of DM, HTN, HLD and morbid obesity presenting to the hospital with worsening right hand and wrist pain and swelling for 4 days. The patient reported waking up to pain in her wrist and dorsal side of hand which has been worsening since. she went to Urgent care and prescribed antibiotics but no significant improvement as swelling, erythema and pain worsened. reporting chills but no fever. she is not sure how did she get it but thinks it is a bug bite. No chest pain, palpitations, SOB, nausea, vomiting, diarrhea or urinary symptoms. In ED has XR showing edema but no bone abnormalities. Will be admitted for IV antibiotics and close monitoring Hospital course The patient was admitted for treatment of Right Hand cellulitis. She was not septic on presentation but had significant edema, erythema and pain with restriction of movement of the wrist and fingers after failing PO antibiotics. XR showing subcutanous edema. Blood cultures remained negative as she was treated with IV Vancomycin and Zosyn and Kept her hand elevated with good response over the course of hospital stay. She was evaluated by orthopedic team who recommended Antibiotic treatment and no intervention needed. OT evaluated the patient as well and recommended outpatient services to follow with OT. To be discharged on 1 more week of Doxycycline and Augmentin which she has both at home as recently prescribed. For Acute Hypomagnesemia. Replacement given, resolved. For acute Mild Hyponatremia, resolved with encouraged PO intake. Discharge plan Finish 1 more week of Doxycycline and Augmentin (Amoxicillin\Clavulanate) for 1 more week Use Ibuprofen for pain as needed Keep hand elevated , wash with water and soap daily Come back to ED for any worsening swelling, erythema or fever. Time Attestation Discharge Coordination Time (in mins): 39 Quality: Safe Use of Opioids Does Pt have an Active Cancer Diagnosis on the Problem List?: No Quality: Stroke Does the patient have a stroke diagnosis?: No Physical Exam Vital Signs: Vital Signs: Last Vital Signs Temp 98.2 F 03/06/25 07:13 Pulse 77 03/06/25 07:13 Resp 16 03/06/25 07:13 BP 162/84 H 03/06/25 08:50 Pulse Ox 97 03/06/25 07:13 O2 Del Method Room Air 03/06/25 07:13 BMI result Body Mass Index 34.0 Const: Other: Constitutional : Awake, interactive, not in distress Neck : Normal inspection, Supple Cardiovascular : RRR, no JVP, no lower extremity edema Respiratory : good bilateral air entry, no crackles, wheezes or rhonchi Gastrointestinal: soft, lax, Normal bowel sounds, Non tender Skin : Warm, Dry Extremities; resolving Right hand swelling and erythema , improved range of motion of the wrist and fingers Neurological : Alert & oriented x3, No focal deficit , DS: Data Data Completed and Pending Labs on day of discharge: Laboratory Results - last 24 hr 03/05/25 03/05/25 03/05/25 11:27 16:08 19:23 POC Glucose 139 H 112 160 H 03/06/25 07:11 POC Glucose 108 Discharge Plan Discharge Anticipated Discharge Date/Time: 03/06/25 10:48 Patient Disposition: Home, Self-Care Discharge Diagnosis: Hand cellulitis Referrals: Physician,Unknown J [Primary Care Provider] - 1 Week Discharge Medications: Continued amoxicillin-pot clavulanate 875-125 mg tablet 1 tab PO BID Qty: 20 0RF Rx Instructions: END DATE: 03/11/25 losartan 50 mg tablet 50 mg PO DAILY simvastatin 40 mg tablet 40 mg PO BEDTIME doxycycline monohydrate 100 mg capsule 100 mg PO BID Rx Instructions: END DATE: 03/07/25 metformin 1,000 mg tablet 1,000 mg PO BID omeprazole 20 mg capsule,delayed release(DR/EC) 20 mg PO DAILY@0630 glipizide 5 mg tablet 5 mg PO DAILY ferrous sulfate [iron] 325 mg (65 mg iron) Tablet 325 mg PO DAILY vitamin E 268 mg (400 unit) Capsule 268 mg PO DAILY Discharge Orders: Discharge Order (Routine); Ordered 03/06/25 Ordered By: Winter Nick Diet: Advance to usual diet Activity on Discharge: As tolerated Stand Alone Forms: Patient Portal Discharge page Print Language: Prydeinig Care Plan Goals: Finish 1 more week of Doxycycline and Augmentin (Amoxicillin\Clavulanate) for 1 more week Use Ibuprofen for pain as needed Keep hand elevated , wash with water and soap daily Come back to ED for any worsening swelling, erythema or fever. Health Concerns: Hand cellulitis Plan of Treatment: Doxycycline and Augmentin Assessment: as above
--- NOTE | 2025-03-06 10:58 | MHC.CM.PN ---
pt dcd home self care
== END 2025-03-06 11:12 | disposition home or self-care (01) | DRG 603 ==
LOC: HO.ED 13:47 → HO.EDOVER 14:34 → HO.S3 03-05 03:59
PROVIDERS: Physician Assistant; Physician Assistant Medical; Admitting Provider Student in an Organized Health Care Education/Training Program; Emergency Provider Emergency Medicine; Visit Provider Student in an Organized Health Care Education/Training Program
DX: L03.113 Cellulitis of right upper limb (principal); E87.1 Hypo-osmolality and hyponatremia; E83.42 Hypomagnesemia; K21.9 Gastro-esophageal reflux disease without esophagitis; Z79.84 Long term (current) use of oral hypoglycemic drugs; Z79.899 Other long term (current) drug therapy
CPT/HCPCS: 36415; 80048; 80076; 82947; 83605; 83735; 85025; 85652; 86140; 97165; 99285; J0692; J1650; J1920; J2543; J3371; J7120

== ENCOUNTER → 2025-03-04 14:34 | Outpatient (BNV) | payer OTHER, SELFPAY | PROVIDERS: Admitting Provider Student in an Organized Health Care Education/Training Program; Emergency Provider Emergency Medicine; Visit Provider Student in an Organized Health Care Education/Training Program | DX: L03.113 Cellulitis of right upper limb (principal); E83.42 Hypomagnesemia; L08.9 Local infection of the skin and subcutaneous tissue, unspecified | CPT/HCPCS: 99223; 99232; 99239 ==

== ENCOUNTER → 2025-03-04 14:34 | Outpatient (BNV) | payer OTHER, SELFPAY | PROVIDERS: Admitting Provider Student in an Organized Health Care Education/Training Program; Emergency Provider Emergency Medicine; Visit Provider Physician Assistant | DX: L03.113 Cellulitis of right upper limb (principal) | CPT/HCPCS: 99221 ==

== ENCOUNTER 2025-03-11 18:53 | Inpatient (IN) | payer OTHER, SELFPAY ==
--- NOTE | ~2025-03-11 | CT_ITS ---
CLINICAL HISTORY: acute sob CT angiography chest with contrast. 3D Postprocessing. Comparison: CR - XR CHEST 2V - 03/11/25 19:09 EDT Findings: Cardiomegaly. No pericardial effusion. Ascending aortic aneurysm measuring 4.0 x 3.9 cm. No acute pulmonary embolus. Visualized thyroid gland is within normal limits. Few subcentimeter mediastinal lymph nodes. Asymmetric skin thickening over the visualized left breast. Small left pleural effusion with left lower lobe atelectasis. No pneumothorax. No acute findings in the visualized upper abdomen. The bones are intact. IMPRESSION: 1. No pulmonary embolus. 2. Small left pleural effusion with left lower lobe atelectasis. 3. Ascending aortic aneurysm measuring 4.0 x 3.9 cm. 4. Asymmetric skin thickening over the visualized left breast. Correlate clinically and consider mammogram for further evaluation. This document has been electronically signed by: Margi Lu MD on 03/12/2025 03:28:19
--- NOTE | ~2025-03-11 | XR_ITS ---
CLINICAL HISTORY: SOB Two views of the chest. COMPARISON: None FINDINGS: Cardiomegaly. Tortuous atherosclerotic thoracic aorta. Blunting of the left costophrenic angle. Layering consolidation along the left lung base. No pneumothorax. Mild spondylosis. No acute fracture. IMPRESSION: 1. Small left pleural effusion with overlying atelectasis. This document has been electronically signed by: Kulwinder Stanford MD on 03/11/2025 20:14:44
--- NOTE | ~2025-03-11 | US_ITS ---
CLINICAL HISTORY: swelling, pain Venous duplex ultrasound left lower extremity COMPARISON: None FINDINGS: The visualized deep veins are fully compressible with normal Doppler color flow and spectral tracings. No popliteal cyst. Contralateral right common femoral vein demonstrates normal flow and compression. IMPRESSION: 1. Negative for left lower extremity deep vein thrombosis. This document has been electronically signed by: Kulwinder Stanford MD on 03/11/2025 21:02:31
--- NOTE | ~2025-03-11 | US_ITS ---
EXAMINATION: US LOWER EXTREMITY VEINS LIMITED FOLLOW UP LEFT HISTORY: Asymmetric left LLE, r/o DVT COMPARISON: Comparison is made with the prior examination dated 03/11/2025. TECHNIQUE: Duplex and color Doppler sonographic examination of the deep venous system of the left lower extremity was performed. FINDINGS: The common femoral, superficial femoral, and popliteal veins are patent demonstrating normal compressibility, spontaneous flow, and augmentation. There is a normal color and spectral Doppler waveform appearance of the visualized deep venous system above the knee. The posterior tibial and peroneal veins are patent. US/US venous duplex LE LT IMPRESSION: No evidence of acute DVT in the left lower extremity. Electronically signed by: Ron Olson MD 03/14/2025 01:17 PM EDT
--- NOTE | 2025-03-11 18:58 | ED_ITS ---
HPI - General Adult General Chief complaint: Dyspnea Stated complaint: SOB Time Seen by Provider: 03/11/25 21:22 Source: patient Mode of arrival: ambulatory Limitations: no limitations History of Present Illness ED Provider: HPI narrative: 74 years old lady with PMH of DM, HTN, HLD and obesity just discharged on 03/06 for right hand cellulitis on Augmentin comes here for acute onset of shortness a breath started earlier today especially when she lays down along with noticed swelling of the legs. No prior history of CHF or heart failure. Patient never had similar symptoms in the past no lung issues in the past no cough no chest pain no fever or chills Related Data Home Medications ?Medication ?Instructions ?Recorded ?Confirmed doxycycline monohydrate 100 mg 100 mg PO BID 03/04/25 03/11/25 capsule ferrous sulfate 325 mg (65 mg 325 mg PO DAILY 03/04/25 03/11/25 iron) tablet (iron) glipizide 5 mg tablet 5 mg PO DAILY 03/04/25 03/11/25 losartan 50 mg tablet 50 mg PO DAILY 03/04/25 03/11/25 metformin 1,000 mg tablet 1,000 mg PO BID 03/04/25 03/11/25 omeprazole 20 mg capsule,delayed 20 mg PO DAILY@0630 03/04/25 03/11/25 release simvastatin 40 mg tablet 40 mg PO BEDTIME 03/04/25 03/11/25 vitamin E 268 mg (400 unit) capsule 268 mg PO DAILY 03/04/25 03/11/25 Previous Rx's ?Medication ?Instructions ?Recorded amoxicillin 875 mg-potassium 1 tab PO BID #20 tabs 03/03/25 clavulanate 125 mg tablet Allergies Allergy/AdvReac Type Severity Reaction Status Date / Time No Known Allergies Allergy Verified 03/11/25 19:01 Review of Systems 2 Review of Systems: Yes all other systems are reviewed and are negative PMFSH Past Medical History Medical History HLD (hyperlipidemia) Hypertension Diabetes type 2 Social History Social History Household Members: None Housing: House Do you presently have visiting nurse or other home services: No Patient Tobacco Use Status: Never used Tobacco Second Hand Smoke Exposure: No service: No Physical Exam ED Vital Signs: Vital Signs - 24 hr 03/11/25 19:00 03/11/25 20:57 03/11/25 21:18 Temperature 96.8 F 98.0 F Pulse Rate 82 85 86 Respiratory Rate 22 H 18 18 Blood Pressure 201/81 H 195/88 H Pulse Oximetry 97 92 Oxygen Delivery Method Room Air Room Air 03/11/25 22:20 03/11/25 22:20 Temperature Pulse Rate 101 H Respiratory Rate Blood Pressure 162/77 H Pulse Oximetry Oxygen Delivery Method BMI result Body Mass Index 31.8 Appearance: Alert. Oriented X3. No acute distress. Eyes: No pallor or icterus ENT: Pharynx normal. Oral Mucosa moist Neck: Normal inspection. Neck supple. CVS: Normal heart rate and rhythm. Pulses normal. Systolic ejection murmur at the base Respiratory: No respiratory distress. Equal air entry bilateral, no wheezing/rhonchi few rales at the bases Abdomen: Soft and nontender. Bowel sounds are present, no mass palpable, no CVA tenderness Skin: Skin warm and dry. Normal skin color. Normal skin turgor. Extremities: 2+ lower extremity edema. No calf tenderness Neuro: Oriented X 3. No motor deficit. No sensory deficit.No cerebellar signs , cranial nerves II-XII intact Course Course Course Narrative: RME performed by Brenda Jackson PA-C. Patient is a 74 year old assigned female at presenting to the emergency department with shortness of breath and left lower leg swelling. Detailed physical exam and review of systems are deferred to the operator cavity pump. EKG, labs, imaging, and swabs ordered. Patient placed back in the waiting room pending room availability and results. Medications Administered Generic Name Dose Route Start Last Admin Trade Name Freq PRN Reason Stop Dose Admin Enoxaparin Sodium 40 mg 03/11/25 23:00 03/11/25 23:15 Enoxaparin Sodium 40 Mg/0.4 Ml Syringe SUBCUT 40 mg Q24H REGINALDO Administration Hydralazine HCl 5 mg 03/12/25 05:14 03/12/25 05:36 Hydralazine Hcl 20 Mg/Ml Vial IVPUSH 5 mg Q4H PRN Administration SBP > 160 Protocol Insulin Human Lispro 0 unit 03/12/25 07:30 03/12/25 07:24 Insulin Lispro 100 Unit/Ml 3 Ml Vial SUBCUT Not Given QIDACHS [facility] Protocol Losartan Potassium 50 mg 03/12/25 05:10 03/12/25 06:06 Losartan Potassium 50 Mg Tablet PO 50 mg DAILY [facility] Administration Protocol Omeprazole 20 mg 03/12/25 06:30 03/12/25 06:06 Omeprazole 20 Mg Capsule. PO 20 mg DAILY@0630 [facility] Administration Sodium Chloride 3 ml 03/12/25 00:00 03/12/25 01:44 0.9 % Sodium Chloride Flush 3 Ml Syringe IVFLUSH Not Given QSHIFT [facility] Discontinued Medications Generic Name Dose Route Start Last Admin Trade Name Freq PRN Reason Stop Dose Admin Albuterol Sulfate 2.5 mg 03/11/25 21:18 03/11/25 21:19 Albuterol Sulfate (0.083%) 2.5 Mg/3 Ml Vial.Neb INHALE 03/11/25 21:19 2.5 mg ONCE ONE Administration Furosemide 20 mg 03/11/25 22:11 03/11/25 22:20 Furosemide 20 Mg/2 Ml Vial IVPUSH 03/11/25 22:12 20 mg ONCE ONE Administration Protocol Iohexol 65 ml 03/12/25 01:40 03/12/25 01:41 Iohexol 350 Mg/Ml 100 Ml Infus..Btl IV 03/12/25 01:41 65 ml ONCE ONE Administration Nitroglycerin 1 inch 03/11/25 22:11 03/11/25 22:20 Nitroglycerin 2 % Oint 1 Gm Packet TRANSDERMA 03/11/25 22:12 1 inch ONCE ONE Administration Medical Decision Making Medical Decision Making [facility] Narrative: Patient has acute onset of shortness a breath clinically patient has CHF with leg edema venous Doppler negative for DVT patient does have aortic stenosis murmur likely possible the cause for acute CHF patient never had any echo done in the past also has slightly elevated D-dimer of 270 per hospitalist request will do the CTA chest to rule out PE although clinically patient has acute CHF CTA chest negative for PE Differential Diagnosis Differential Diagnoses: The differential diagnosis associated with the presentation includes CHF/pneumonias/bronchitis/PE Consult Healthcare Provider Management of the patient was discussed with: Hospitalist Lab Data [facility] Lab Attestation statement: I reviewed the patient's lab results. 03/11/25 19:33 03/12/25 05:49 Labs: Lab Results 05/11/25 Range/Units 19:33 WBC 9.2 (4.8-10.8) X10*3/uL RBC 3.72 L (4.20-5.50) X10*6/uL Hgb 9.6 L (12.0-16.0) g/dl Hct 29.4 L (37.0-47.0) % MCV 79.0 L (80.0-98.0) fL MCH 25.8 L (27.0-33.0) pg MCHC 32.7 (31.0-35.0) g/dl RDW 14.1 (11.0-16.0) % Plt Count 293 D (160-400) X10*3/uL MPV 8.6 L (9.4-12.3) fL Immature Gran % (Auto) 0.7 H (0.0-0.4) % Neut % (Auto) 59.8 (45-73) % Lymph % (Auto) 21.7 (20-40) % [place] % (Auto) 14.9 H (2-11) % Eos % (Auto) 2.5 (0-4) % Baso % (Auto) 0.4 (0-2) % Lymph # (Auto) 2.0 (1.2-4.9) X10*3/uL [place] # (Auto) 1.4 H (0.1-1.2) X10*3/uL Eos # (Auto) 0.2 (0.0-0.4) X10*3/uL Baso # (Auto) 0.0 (0.0-0.2) X10*3/uL Abs Immat Gran (auto) 0.06 H (0.00-0.03) X10*3/uL Absolute Neuts (auto) 5.5 (2.0-8.3) x10*3/uL Absolute Nucleated RBC 0.000 (0.0-0.012) X10*3/uL Nucleated RBC % (auto) 0.0 (0.0-0.2) /100WBC Sodium 137 (135-145) mmol/L Potassium 4.1 (3.3-5.1) mmol/L Chloride 101 (96-108) mmol/L Carbon Dioxide 27 (22-29) mmol/L Anion Gap 13 (12-20) BUN 15 (9-16) mg/dL Creatinine 0.75 (0.5-1.4) mg/dL Estim Creat Clear Calc 59.0 Estimated GFR > 60 Random Glucose 102 (60-115) mg/dL Calcium 9.4 (8.4-10.2) mg/dL Magnesium 1.6 (1.6-2.6) mg/dL Total Bilirubin 0.2 (0.0-1.0) mg/dL AST 15 (5-31) U/L ALT 10 (0-31) U/L Alkaline Phosphatase 62 (39-117) U/L Troponin I High Sens < 2.7 (<3.5-17.0) ng/L B-Natriuretic Peptide 118 H (<100) pg/mL Total Protein 6.6 (6.5-8.0) g/dL Albumin 3.7 (3.5-5.0) g/dL Influenza Type A (PCR) NEGATIVE (Negative) Influenza Type B (PCR) NEGATIVE (Negative) RSV RNA Qual (PCR) NEGATIVE (Negative) SARS-CoV-2 RNA (RT-PCR) NEGATIVE (Negative) Independent Interpretation I performed an independent interpretation of an: EKG Interpretation: Normal sinus rhythm heart rate 77 beats per minute normal intervals normal axis no acute ST-T changes no acute ischemia Radiology Impression Discussion of test interpretation with radiology: I have reviewed the radiologist's reading. Radiologist Impression: IMPRESSION: 1. No pulmonary embolus. 2. Small left pleural effusion with left lower lobe atelectasis. 3. Ascending aortic aneurysm measuring 4.0 x 3.9 cm. 4. Asymmetric skin thickening over the visualized left breast. Correlate clinically and consider mammogram for further evaluation. This document has been electronically signed by: D Discharge Plan Discharge Clinical Impression: Congestive cardiac failure Qualifiers: Heart failure type: unspecified Heart failure chronicity: unspecified Qualified Code(s): I50.9 - Heart failure, unspecified Patient Disposition: Admitted As Inpatient Interventions: Admission Worksheet (ED) Last Done: 03/12/25 03:20 Discharge Date/Time: 03/12/25 04:06
[2025-03-11 19:00] VITALS: BP 201/81; PULSE 82; RESP 22; TEMP 36; O2SAT 97; BMI 31.8
--- NOTE | 2025-03-11 19:00 | ECG_ITS ---
Test Reason : SOB Blood Pressure : */* mmHG Vent. Rate : 77 BPM Atrial Rate : 77 BPM P-R Int : 182 ms QRS Dur : 74 ms QT Int : 380 ms P-R-T Axes : 16 14 13 degrees QTcB Int : 430 ms Normal sinus rhythm Normal ECG No previous ECGs available Referred By: Brenda Jackson Electronically Signed By: ANDREE ARMENDARIZ MD
[2025-03-11 19:44] LABS: MANUAL DIFF FLAG NO
[2025-03-11 19:45] LABS: Basophils Percent Auto 0.4 % (0-2); Eosinophils Absolute Auto 0.2 X10*3/uL (0.0-0.4); Eosinophils Percent Auto 2.5 % (0-4); Hematocrit 29.4 % (37.0-47.0); Hemoglobin 9.6 g/dl (12.0-16.0); Imm Gran Abs Auto 0.06 X10*3/uL (0.00-0.03); Imm Gran Pct Auto 0.7 % (0.0-0.4); Lymphocytes Percent Auto 21.7 % (20-40); Mean Corpuscular HGB Conc 32.7 g/dl (31.0-35.0); Mean Corpuscular Hemoglobin 25.8 pg (27.0-33.0); Mean Platelet Volume 8.6 fL (9.4-12.3); Monocytes Absolute Auto 1.4 X10*3/uL (0.1-1.2); Monocytes Percent Auto 14.9 % (2-11); Neutrophils Absolute Auto 5.5 x10*3/uL (2.0-8.3); Neutrophils Percent Auto 59.8 % (45-73); Platelet Count 293 X10*3/uL (160-400); Red Blood Count 3.72 X10*6/uL (4.20-5.50); Red Cell Distribution Width 14.1 % (11.0-16.0); White Blood Count 9.2 X10*3/uL (4.8-10.8)
[2025-03-11 20:00] LABS: Alanine Aminotransferase 10 U/L (0-31); Albumin Level 3.7 g/dL (3.5-5.0); Alkaline Phosphatase 62 U/L (39-117); Anion Gap 13 (12-20); Aspartate Amino Transferase 15 U/L (5-31); Bilirubin Total 0.2 mg/dL (0.0-1.0); Blood Urea Nitrogen 15 mg/dL (9-16); Calcium 9.4 mg/dL (8.4-10.2); Carbon Dioxide 27 mmol/L (22-29); Chloride 101 mmol/L (96-108); Estimated Glomerular Filt Rate > 60; Glucose Random 102 mg/dL (60-115); Magnesium 1.6 mg/dL (1.6-2.6); Potassium 4.1 mmol/L (3.3-5.1); Sodium 137 mmol/L (135-145); Total Protein 6.6 g/dL (6.5-8.0)
[2025-03-11 20:06] LABS: B Type Natriuretic Peptide 118 pg/mL (<100)
[2025-03-11 20:09] LABS: Troponin-I High Sensitivity < 2.7 ng/L (<3.5-17.0)
[2025-03-11 20:22] LABS: Influenza A PCR NEGATIVE (Negative); Influenza B PCR NEGATIVE (Negative); Resp Syncy Virus RNA Qual PCR NEGATIVE (Negative); SARS COV2 PCR INHOUSE NEGATIVE (Negative)
[2025-03-11 20:57] VITALS: BP 195/88; PULSE 85; RESP 18; TEMP 36.7; O2SAT 92
--- NOTE | 2025-03-11 20:57 | PC.NURSE ---
pt a&ox4, respirations even and unlabored with expiratory wheezing noted. pt reports sudden onset of shortness of breath that worsens when laying down, pt reports hx of asthma but reports she does not have an inhaler at home. pt noted to be hypertensive at this time, she is unsure if she takes medications, nsr on tele.
[2025-03-11 21:18] VITALS: PULSE 86; RESP 18; O2SAT 95
[2025-03-11] MEDS: Albuterol Sulfate (0.083%) 2.5 MG/3 ML VIAL.NEB INHALE (21:19)
[2025-03-11 22:20] VITALS: BP 162/77; PULSE 101
[2025-03-11] MEDS: Furosemide 20 MG/2 ML VIAL IVPUSH (22:20)
[2025-03-11] MEDS: Nitroglycerin 2 % Oint 1 GM Packet 1 INCH TRANSDERMA (22:20)
[2025-03-11 22:38] VITALS: BP 154/77; PULSE 101; RESP 18; O2SAT 95
[2025-03-11 22:48] LABS: INTERNATIONAL NORM RATIO 1.1 (0.9-1.1); Prothrombin Time 12.7 SEC (10.9-12.4)
--- NOTE | 2025-03-11 22:48 | PC.NURSE ---
18g placed in left hand, pt medicated per dec, ambulatory to bathroom with steady gait.
[2025-03-11 22:50] LABS: D Dimer High Sensitivity 270 NG/ML; Partial Thromboplastin Time 34.5 SEC (26.0-36.8)
--- NOTE | 2025-03-11 22:56 | PC.NURSE ---
med rec completed with pt at bedside, aware.
[2025-03-11 22:58] LABS: Magnesium 1.6 mg/dL (1.6-2.6)
[2025-03-11 23:11] VITALS: BP 149/75; PULSE 100; RESP 18; TEMP 37.1; O2SAT 95
[2025-03-11] MEDS: Enoxaparin Sodium 40 MG/0.4 ML SYRINGE SUBCUT (23:15)
[2025-03-12] VITALS (9 sets, daily range): BP systolic 125–205; BP diastolic 75–98; PULSE 71–90; RESP 16–20; TEMP 36–36.4; O2SAT 94–97; BMI 31.7
[2025-03-12] MEDS: iohexoL 350 MG/ML 100 ML INFUS..BTL 65 ML IV (01:41)
--- NOTE | 2025-03-12 05:09 | P.HPHOSP_ITS ---
History of Present Illness Date of Service: 03/11/25 Chief Complaint: Shortness of breath 74-year-old female with a past medical history of HTN, HLD, DM, recent admission to the hospital for hand cellulitis presented to the hospital today with a chief complaint of shortness of breath. Patient reports that over the past few days he has been having shortness of breath especially on exertion. Also reports orthopnea while sleeping for the past couple days. Today she has increased shortness of breath. Denies any cough or sputum production. She initially went to the urgent care as she noticed left leg swelling, subsequently asked her to go to the ER for further evaluation. Denies any chest pain or palpitations. Reports she is still continuing her antibiotics for her hand cellulitis which is improving. Patient denies any nausea vomiting or diarrhea. Denies any urinary symptoms. Review of all other systems is negative except mentioned above ER course: Per ER patient, patient noted to have right leg swelling; DVT study negative . D-dimer negative. CTA chest showed small left pleural effusion. Ascending aortic aneurysm. Asymmetric skin thickening of the left breast-recommended a mammogram. [facility] Medical History HLD (hyperlipidemia) Hypertension Diabetes type 2 Social History Household Members: None Housing: House Do you presently have visiting nurse or other home services: No Patient Tobacco Use Status: Never used Tobacco Second Hand Smoke Exposure: No service: No Meds Allergies Allergy/AdvReac Type Severity Reaction Status Date / Time No Known Allergies Allergy Verified 03/11/25 19:01 Active Medications: Current Medications Acetaminophen (Acetaminophen 325 Mg Tablet) 650 mg PO Q6H PRN PRN Reason: Pain, Mild 1-3,fever,headache Calcium Carbonate (Calcium Carbonate 750 Mg Tab.Chew) 750 mg PO Q4H PRN PRN Reason: Heartburn Dextrose (Dextrose 50 % 25 Gm/50 Ml Syringe) 25 gm IVPUSH Q15M PRN; Protocol PRN Reason: per Hypoglycemia Standing Ord. Enoxaparin Sodium (Enoxaparin Sodium 40 Mg/0.4 Ml Syringe) 40 mg SUBCUT Q24H REGINALDO Last Admin: 03/11/25 23:15 Dose: 40 mg Furosemide (Furosemide 40 Mg/4 Ml Vial) 40 mg IVPUSH DAILY [facility]; Protocol Glucose (Glucose Gel 15 Gm Gel..Gram.) 15 gm PO Q15M PRN; Protocol PRN Reason: per Hypoglycemia Standing Ord. Insulin Human Lispro (Insulin Lispro 100 Unit/Ml 3 Ml Vial) 0 unit SUBCUT QIDACHS [facility]; Protocol Magnesium Hydroxide (Milk Of Magnesia 30 Ml Oral.Susp) 30 ml PO DAILY PRN PRN Reason: Constipation Melatonin (Melatonin 3 Mg Tablet) 6 mg PO BEDTIME PRN PRN Reason: Insomnia Sodium Chloride (0.9 % Sodium Chloride Flush 3 Ml Syringe) 3 ml IVFLUSH [facility] Last Admin: 03/12/25 01:44 Dose: Not Given Home Medications ?Medication ?Instructions ?Recorded ?Confirmed ?Last Taken ?Type doxycycline monohydrate 100 mg 100 mg PO BID 03/04/25 03/11/25 03/04/25 09:00 History capsule ferrous sulfate 325 mg (65 mg 325 mg PO DAILY 03/04/25 03/11/25 03/04/25 09:00 History iron) tablet (iron) glipizide 5 mg tablet 5 mg PO DAILY 03/04/25 03/11/25 03/04/25 09:00 History losartan 50 mg tablet 50 mg PO DAILY 03/04/25 03/11/25 03/04/25 09:00 History metformin 1,000 mg tablet 1,000 mg PO BID 03/04/25 03/11/25 03/04/25 09:00 History omeprazole 20 mg capsule,delayed 20 mg PO DAILY@0630 03/04/25 03/11/25 03/04/25 07:00 History release simvastatin 40 mg tablet 40 mg PO BEDTIME 03/04/25 03/11/25 Unknown History vitamin E 268 mg (400 unit) capsule 268 mg PO DAILY 03/04/25 03/11/25 03/04/25 09:00 History Physical Exam 2 Vital Signs and Narrative: Vital Signs: Last Vital Signs Temp 97.3 F 03/12/25 04:08 Pulse 90 03/12/25 04:08 Resp 16 03/12/25 04:08 BP 197/95 H 03/12/25 04:08 Pulse Ox 95 03/12/25 04:08 O2 Del Method Room Air 03/12/25 04:08 BMI result Body Mass Index 31.7 Results Labs 03/11/25 19:33 03/11/25 19:33 Labs: Laboratory Results - last 24 hr 03/11/25 03/11/25 19:33 22:36 MCV 79.0 L MCH 25.8 L MCHC 32.7 RDW 14.1 Plt Count 293 D MPV 8.6 L Immature Gran % (Auto) 0.7 H Neut % (Auto) 59.8 Lymph % (Auto) 21.7 [place] % (Auto) 14.9 H Eos % (Auto) 2.5 Baso % (Auto) 0.4 Lymph # (Auto) 2.0 [place] # (Auto) 1.4 H Eos # (Auto) 0.2 Baso # (Auto) 0.0 Abs Immat Gran (auto) 0.06 H Absolute Neuts (auto) 5.5 Absolute Nucleated RBC 0.000 Nucleated RBC % (auto) 0.0 PT 12.7 H INR 1.1 APTT 34.5 D-Dimer High Sensitivty 270 Anion Gap 13 Estim Creat Clear Calc 59.0 Estimated GFR > 60 Random Glucose 102 Calcium 9.4 Magnesium 1.6 1.6 Total Bilirubin 0.2 AST 15 ALT 10 Alkaline Phosphatase 62 B-Natriuretic Peptide 118 H Total Protein 6.6 Albumin 3.7 Influenza Type A (PCR) NEGATIVE Influenza Type B (PCR) NEGATIVE RSV RNA Qual (PCR) NEGATIVE SARS-CoV-2 RNA (RT-PCR) NEGATIVE Assessment and Plan (1) Congestive cardiac failure: Qualifiers: Heart failure type: unspecified Heart failure chronicity: unspecified Qualified Code(s): I50.9 - Heart failure, unspecified Status: Acute Plan 74-year-old female with a past medical history of HTN, HLD, DM, recent admission to the hospital for hand cellulitis presented to the hospital today with a chief complaint of shortness of breath. Admitted for following New onset CHF: Patient reports orthopnea/PND/DOTY. EKG nonischemic. Troponin negative. D-dimer negative. Echocardiogram Telemetry Cardiology consult Lasix 40 mg IV daily Right leg swelling: No evidence of cellulitis. DVT study negative. Recent hand cellulitis: Continue home antibiotics to finish the course. Diabetes: Insulin sliding scale Ascending aortic aneurysm colon measuring 4.0x 3.9 cm. Recommended vascular surgery follow-up. Goal blood pressure less than 140/90. Hydralazine p.r.n. Left breast skin asymmetric thickening: Recommended mammogram. DVT prophylaxis: Lovenox Code status: Full code Quality Stroke Does the patient have a stroke diagnosis?: No VTE Prior VTE?: No VTE Risk Level:: Medical - moderate - high VTE Device Contraindication: Treatment Not Indicated VTE Drug Contraindication: N/A - Med Ordered
[2025-03-12] MEDS: hydrALAZINE HCl 20 MG/ML VIAL 5 MG IVPUSH (05:36)
[2025-03-12] MEDS: Omeprazole 20 MG CAPSULE.DR PO (06:06)
[2025-03-12] MEDS: Losartan Potassium 50 MG TABLET PO (06:06)
--- NOTE | 2025-03-12 07:00 | CA_ITS ---
Transthoracic Echocardiogram Patient (Last, First, Middle): Yanna Parks, Gender: Female Date of : 1950 Age: 74 Procedure Date: 03/12/2025 Procedure Type: Transthoracic Echocardiogram Location: [facility] [place] Height: 152.4 cm Weight: 73.48 kg BSA: 1.71 m2 Heart Rate: bpm BP: 160 / 92 mmHg Travograph Operator: Referring MD: Jeremiah Coronado MD Wastewater Process Engineer: Justen Rojas MD Symptoms: chf Study Quality: Adequate ECG Rhythm: Sinus Conclusions: - 1. Normal LV ejection fraction of 60 65% with [id number] left ventricular hypertrophy with elevated filling pressures 2. Moderately dilated left atrium 3. No significant abnormalities of cardiac valvular Dopplers 4. At least moderately elevated right atrial pressures 5. Mildly dilated ascending aorta 6. No gross pericardial effusion Findings Procedure Information Contrast agent, definity, is being given per protocol without apparent complications. Left Ventricle Normal left ventricular size and systolic function. There is mildly increased left ventricular wall thickness. The visually estimated ejection fraction is between 60-65%. Spectral Doppler is indicative of an impaired relaxation filling pattern. Elevated filling pressures. E/E prime ratio is >15, consistent with elevated filling pressures. Right Ventricle Normal right ventricular cavity size and systolic function. Atria The left atrium is moderately dilated. There is no evidence of interatrial shunt. The right atrium is likely dilated. Aortic Valve There is mild calcification of the aortic valve. There is no aortic valve regurgitation. Mitral Valve Normal mitral valve structure and function. There is trace mitral valve regurgitation. There is no mitral valve stenosis. Tricuspid Valve Normal tricuspid valve structure. There is trace tricuspid valve regurgitation. Moderately elevated right atrial pressure. Great Vessels The pulmonary artery was not well visualized. There is mild dilatation of the ascending aorta measuring 4.20 cm. Venous The inferior vena cava is moderately dilated and collapses less than 50% with inspiration. Pericardium/Pleural There is no evidence of pericardial effusion. Prior Study Comparison No prior study available for comparison. Measurements 2D Linear Measurements IVSd: 1.39 0.6-0.9/0.6-1.0 cm LVIDd: 4.36 3.9-5.3/4.2-5.9 cm LVIDd Index: 2.55 2.4-3.2/2.2-3.1 cm/m2 LVIDs: 2.66 2.0-3.6 cm LVPWd: 1.39 0.7-1.1 cm Ao Root: 3.20 2.1-3.5 cm LA Diam: 3.60 2.7-3.8/3.0-4.0 cm LAIDs Index: 2.11 1.5-2.3 cm/m2 LV Mass: 292.36 67-162/88-224 g LV Mass Index: 170.97 43-95/49-115 g/m2 LVOT Diam: 2.00 3.0+(-)1.3 cm 2D Systolic Function EF 4C: 66.30 >55% EF 2C: 55.20 >55% EF BiP: 60.40 >55% Mitral Valve MV Pk E: 0.82 MV PK A: 1.47 MV Decel Time: 111.00 E/A: 0.60 E'Lateral: 4.90 E'Medial: 4.46 E/E' Med: 18.50 E/E' Lat: 16.80 PHT: 33.00 MVA PHT: 6.67 Decel Frio: 7.38 Aortic Valve AoV Pk Tarik: 1.95 AoV Mn Tarik: 1.16 AoV VTI: 0.42 AoV Pk Grad: 15.00 Aov Mn Grad: 7.00 RICHARD Cont.VTI: 1.86 LVOT LVOT Pk Tarik: 1.05 LVOT Mn Tarik: 0.72 LVOT VTI: 0.25 LVOT Pk Grad: 4.00 LVOT Mn Grad: 3.00 LVOT Diam: 2.00 LVOT Area: 3.14 Diastolic Function MV Pk E: 0.82 MV Pk A: 1.47 E/A: 0.60 E'Medial: 4.46 E/E' Med: 18.50 E' Laterial: 4.90 E/E' Lat: 16.80 Right Ventricle TAPSE (mm): 24.00 Tricuspid Valve TR Pk Tarik: 1.59 TR Pk Grad: 10.00 Great Vessels Aorta Ao Root-2D: 3.20 2.0-3.7 cm Ao Asc: 4.20 2.1-3.4 cm Pulmonary Valve PV Pk Tarik: 1.05 Peak PV Grad: 4.00 Updated in Other Vendor System with Status of Final Justen Rojas MD electronically signed on 03/12/2025 5:05:57 PM with status of Final
[2025-03-12 07:04] LABS: Alanine Aminotransferase 10 U/L (0-31); Albumin Level 3.7 g/dL (3.5-5.0); Alkaline Phosphatase 58 U/L (39-117); Anion Gap 14 (12-20); Aspartate Amino Transferase 11 U/L (5-31); Bilirubin Total 0.2 mg/dL (0.0-1.0); Blood Urea Nitrogen 13 mg/dL (9-16); Carbon Dioxide 27 mmol/L (22-29); Chloride 100 mmol/L (96-108); Creatinine Clr Calc Pharmacy 69.1; Estimated Glomerular Filt Rate > 60; Glucose Random 122 mg/dL (60-115); Potassium 3.5 mmol/L (3.3-5.1); Sodium 137 mmol/L (135-145); Total Protein 6.4 g/dL (6.5-8.0)
[2025-03-12 07:23] LABS: Glucose, Whole Blood 133 mg/dL (60-115)
[2025-03-12] MEDS: Atorvastatin Calcium 20 MG TABLET PO (07:56)
[2025-03-12] MEDS: 0.9 % Sodium Chloride Flush 3 ML SYRINGE IVFLUSH ×3 (07:57→20:25)
[2025-03-12] MEDS: Furosemide 40 MG/4 ML VIAL IVPUSH (07:57)
--- NOTE | 2025-03-12 08:07 | PHA.MEDREC ---
Pharmacy Consult ? Medication Reconciliation Pharmacy has reviewed the medication reconciliation completed by nursing. Pt was a poor historian and could not recall her medication and barely knew them when asked. She states nothing has changed since her last admission on 03/04. Pt was started on Augmentin and Doxycycline, these should ahve been completed by now, but pt has 2 days remaining of the Doxycycline and 4 days remaining of the Augmentin.
[2025-03-12 08:26] LABS: Hemoglobin 10.1 g/dl (12.0-16.0); Mean Corpuscular HGB Conc 32.6 g/dl (31.0-35.0); Mean Corpuscular Hemoglobin 25.6 pg (27.0-33.0); Mean Corpuscular Volume 78.5 fL (80.0-98.0); Mean Platelet Volume 8.6 fL (9.4-12.3); Platelet Count 280 X10*3/uL (160-400); Red Blood Count 3.95 X10*6/uL (4.20-5.50); Red Cell Distribution Width 14.1 % (11.0-16.0); White Blood Count 8.9 X10*3/uL (4.8-10.8)
[2025-03-12] MEDS: Doxycycline Monohydrate 100 MG CAPSULE PO ×2 (09:04→20:25)
[2025-03-12] MEDS: Amoxicillin/Potassium Clav 875 MG TABLET PO ×2 (09:04→20:25)
--- NOTE | 2025-03-12 09:23 | MHC.CM.PN ---
Female DX New HF. She was discharged a few days ago with Cellulitis of the hand. She lives by herself. She is independent with all functional mobility, no DME. [facility], PCP name unknown. DP Home self care. Her [place] [facility] [place]. She plans to self transport home.
--- NOTE | 2025-03-12 10:35 | PM.EVENT ---
Event Note Date of Service: 03/12/25 Event Note: 74-year-old woman admitted with acute congestive heart failure and hypertensive urgency. Acute congestive heart failure, unspecified Monitor on telemetry BNP 118 Continue IV Lasix Cardiology consultation Echocardiogram Monitor intake and output, daily weights Hypertensive urgency Uncontrolled high blood pressure likely contributing to acute onset of congestive heart failure Continue losartan Spironolactone and Jardiance added as per Cardiology Monitor blood pressure closely Diabetes mellitus type 2 Hold home medications for now Sliding scale, ADA diet Microcytic anemia versus iron-deficiency No obvious blood loss Monitor CBC Check iron studies GERD Continue PPI Hyperlipidemia Continue statin DVT prophylaxis with Lovenox Full code Time Spent With Patient Time: Total time managing care of this patient today ____ minutes.
--- NOTE | 2025-03-12 10:47 | P.CONCA_ITS ---
History of Present Illness History of Present Illness Date of Service: 03/12/25 Requesting physician: Lili Dominique Consult reason: congestive heart failure Chief complaint: New CHF Narrative: I was consulted to see Yanna in cardiology consultation today for new onset shortness of breath and possible congestive heart failure. Patient is a pleasant 74-year-old female with prior history of longstanding hypertension as well as diabetes and hyperlipidemia with no prior cardiovascular issues. She was recently discharged from the hospital after treatment for cellulitis. She said after going home she started noticing that she was getting short of breath with minimal activity. 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 Last night she said while she was laying down next to him she felt more short of breath and was not able to laid I had to get up and sleep in his recliner because she got significantly short of breath. She came to the hospital. She was noted to have mildly elevated BNP in the 118 range. She has noticed increased swelling in his left lower extremity and there was a concern for possible blood clot and she was referred from urgent Care to the emergency room. In the emergency room she had workup and shows no evidence of pulmonary embolism although suggestion of left pleural effusion with left atelectasis of unclear etiology. She will also noted to have some thickening of her left breast. She denies any other symptoms of chest pain. Denies any prolonged palpitation irregular heartbeat. She says she has never had any had any cardiac issues in the past including no history of coronary artery disease or myocardial infarction. She says she feels better today after diuresis since. She has had a negative balance recorded of only 360 cc. Review of Systems 2 Constitutional: Constitutional: Reports no additional constitutional complaints Eyes: Eyes: Reports no additional eye complaints Cardiovascular: Cardiovascular: Denies chest pain, Reports leg edema, Denies lightheadedness, Denies Loss of Consciousness, Denies palpitations, Reports dyspnea on exertion and Reports orthopnea Respiratory: Respiratory: Reports no additional respiratory complaints and Reports dyspnea on exertion Gastrointestinal: Gastrointestinal: Reports no additional gastrointestinal complaints Genitourinary: Genitourinary: Reports no additional female genitourinary complaints Musculoskeletal: Musculoskeletal: Reports no additional musculoskeletal complaints Integumentary/Breasts: Skin/Breast: Reports system reviewed and no additional complaints, except as docu Neurologic: Reports system reviewed and no additional complaints, except as documented Psychiatric: Psychiatric: Reports no additional psychiatric complaints Endocrine: Endocrine: Denies palpitations Hematologic/Lymphatic: Hematologic/Lymphatic: Reports no additional hematologic/lymphatic complaints Allergic/Immunologic: Allergic/Immunologic: Reports no additional allergic/immunologic complaints [facility] Past Medical History Medical History HLD (hyperlipidemia) Hypertension Diabetes type 2 Social History Social History Household Members: None Housing: House Do you presently have visiting nurse or other home services: No Patient Tobacco Use Status: Never used Tobacco Second Hand Smoke Exposure: No service: No Meds Allergies Allergy/AdvReac Type Severity Reaction Status Date / Time No Known Allergies Allergy Verified 03/11/25 19:01 Active Medications: Current Medications Acetaminophen (Acetaminophen 325 Mg Tablet) 650 mg PO Q6H PRN PRN Reason: Pain, Mild 1-3,fever,headache Amoxicillin/Clavulanate Potassium (Amoxicillin/Potassium Clav 875 Mg Tablet) 875 mg PO BID [facility] Last Admin: 03/12/25 09:04 Dose: 875 mg Atorvastatin Calcium (Atorvastatin Calcium 20 Mg Tablet) 20 mg PO DAILY [facility] Last Admin: 03/12/25 07:56 Dose: 20 mg Calcium Carbonate (Calcium Carbonate 750 Mg Tab.Chew) 750 mg PO Q4H PRN PRN Reason: Heartburn Dextrose (Dextrose 50 % 25 Gm/50 Ml Syringe) 25 gm IVPUSH Q15M PRN; Protocol PRN Reason: per Hypoglycemia Standing Ord. Doxycycline Monohydrate (Doxycycline Monohydrate 100 Mg Capsule) 100 mg PO BID [facility] Last Admin: 03/12/25 09:04 Dose: 100 mg Empagliflozin (Empagliflozin 10 Mg Tablet) 10 mg PO DAILY [facility] Enoxaparin Sodium (Enoxaparin Sodium 40 Mg/0.4 Ml Syringe) 40 mg SUBCUT Q24H [facility] Last Admin: 03/11/25 23:15 Dose: 40 mg Furosemide (Furosemide 40 Mg/4 Ml Vial) 40 mg IVPUSH DAILY [facility]; Protocol Last Admin: 03/12/25 07:57 Dose: 40 mg Glucose (Glucose Gel 15 Gm Gel..Gram.) 15 gm PO Q15M PRN; Protocol PRN Reason: per Hypoglycemia Standing Ord. Hydralazine HCl (Hydralazine Hcl 20 Mg/Ml Vial) 5 mg IVPUSH Q4H PRN; Protocol PRN Reason: SBP > 160 Last Admin: 03/12/25 05:36 Dose: 5 mg Insulin Human Lispro (Insulin Lispro 100 Unit/Ml 3 Ml Vial) 0 unit SUBCUT QIDACHS [facility]; Protocol Last Admin: 03/12/25 07:24 Dose: Not Given Losartan Potassium (Losartan Potassium 50 Mg Tablet) 50 mg PO DAILY [facility]; Protocol Last Admin: 03/12/25 08:55 Dose: Not Given Magnesium Hydroxide (Milk Of Magnesia 30 Ml Oral.Susp) 30 ml PO DAILY PRN PRN Reason: Constipation Melatonin (Melatonin 3 Mg Tablet) 6 mg PO BEDTIME PRN PRN Reason: Insomnia Omeprazole (Omeprazole 20 Mg Capsule.) 20 mg PO DAILY@629 [facility] Last Admin: 03/12/25 06:06 Dose: 20 mg Sodium Chloride (0.9 % Sodium Chloride Flush 3 Ml Syringe) [facility] Last Admin: 03/12/25 07:57 Dose: 3 ml Spironolactone (Spironolactone 25 Mg Tablet) 12.5 mg PO DAILY [facility]; Protocol Home Medications ?Medication ?Instructions ?Recorded ?Confirmed ?Last Taken ?Type doxycycline monohydrate 100 mg 100 mg PO BID 03/04/25 03/11/25 03/04/25 09:00 History capsule ferrous sulfate 325 mg (65 mg 325 mg PO DAILY 03/04/25 03/11/25 03/04/25 09:00 History iron) tablet (iron) glipizide 5 mg tablet 5 mg PO DAILY 03/04/25 03/11/25 03/04/25 09:00 History losartan 50 mg tablet 50 mg PO DAILY 03/04/25 03/11/25 03/04/25 09:00 History metformin 1,000 mg tablet 1,000 mg PO BID 03/04/25 03/11/25 03/04/25 09:00 History omeprazole 20 mg capsule,delayed 20 mg PO DAILY@0630 03/04/25 03/11/25 03/04/25 07:00 History release simvastatin 40 mg tablet 40 mg PO BEDTIME 03/04/25 03/11/25 Unknown History vitamin E 268 mg (400 unit) capsule 268 mg PO DAILY 03/04/25 03/11/2525 09:00 History Physical Exam 2 Vital Signs: Vital Signs: Last Vital Signs Temp 96.8 F 03/12/25 07:28 Pulse 89 03/12/25 07:28 Resp 20 03/12/25 07:28 BP 160/92 H 03/12/25 07:28 Pulse Ox 95 03/12/25 07:28 O2 Del Method Room Air 03/12/25 07:28 BMI result Body Mass Index 31.7 Const: General: cooperative, comfortable, well developed, alert, awake and in distress mild and respiratory Nutritional Appearance: overweight O rientation/consciousness: patient oriented x3 HEENT: Head: Yes normocephalic and Yes atraumatic Neck: Neck: Yes trachea midline, Yes supple and Yes JVD Resp: Effort & Inspection: normal respiratory effort Auscultation: d iminished lung sounds on the left in the lower lung tutlte Cardio: Jugular venous distension: JVD Rhythm: regular rhythm Heart sounds: S1 normal heart sound present, S2 normal heart sound present, no click, no gallops, no murmurs and no rubs GI: Auscultation: normal bowel sounds Skin: General skin exam: no rashes or lesions noted Neuro: General: patient oriented x3 and no focal motor deficits Extrem: General: No clubbing, No cyanosis and Yes edema ( Left greater than right) Psych: Appearance: grossly normal Objective Labs and Meds 03/12/25 08:19 03/12/25 05:49 Lab results: Laboratory Results - last 24 hr 03/11/25 03/11/25 03/12/25 19:33 22:36 05:49 WBC 9.2 RBC 3.72 L Hgb 9.6 L Hct 29.4 L MCV 79.0 L MCH 25.8 L MCHC 32.7 RDW 14.1 Plt Count 293 D MPV 8.6 L Immature Gran % (Auto) 0.7 H Neut % (Auto) 59.8 Lymph % (Auto) 21.7 [place] % (Auto) 14.9 H Eos % (Auto) 2.5 Baso % (Auto) 0.4 Lymph # (Auto) 2.0 [place] # (Auto) 1.4 H Eos # (Auto) 0.2 Baso # (Auto) 0.0 Abs Immat Gran (auto) 0.06 H Absolute Neuts (auto) 5.5 Absolute Nucleated RBC 0.000 Nucleated RBC % (auto) 0.0 Hold Purple Top SEE NOTE PT 12.7 H INR 1.1 APTT 34.5 D-Dimer High Sensitivty 270 Sodium 137 137 Potassium 4.1 3.5 Chloride 101 100 Carbon Dioxide 27 27 Anion Gap 13 14 BUN 15 13 Creatinine 0.75 0.64 Estim Creat Clear Calc 59.0 69.1 Estimated GFR > 60 > 60 POC Glucose Random Glucose 102 122 H Calcium 9.4 9.0 Magnesium 1.6 1.6 Total Bilirubin 0.2 0.2 AST 15 11 ALT 10 10 Alkaline Phosphatase 62 58 Troponin I High Sens < 2.7 B-Natriuretic Peptide 118 H Total Protein 6.6 6.4 L Albumin 3.7 3.7 Influenza Type A (PCR) NEGATIVE Influenza Type B (PCR) NEGATIVE RSV RNA Qual (PCR) NEGATIVE SARS-CoV-2 RNA (RT-PCR) NEGATIVE 03/12/25 03/12/25 07:20 08:19 WBC 8.9 RBC 3.95 L Hgb 10.1 L Hct 31.0 L MCV 78.5 L MCH 25.6 L MCHC 32.6 RDW 14.1 Plt Count 280 MPV 8.6 L Immature Gran % (Auto) Neut % (Auto) Lymph % (Auto) [place] % (Auto) Eos % (Auto) Baso % (Auto) Lymph # (Auto) [place] # (Auto) Eos # (Auto) Baso # (Auto) Abs Immat Gran (auto) Absolute Neuts (auto) Absolute Nucleated RBC 0.000 Nucleated RBC % (auto) 0.0 Hold Purple Top PT INR APTT D-Dimer High Sensitivty Sodium Potassium Chloride Carbon Dioxide Anion Gap BUN Creatinine Estim Creat Clear Calc Estimated GFR POC Glucose 133 H Random Glucose Calcium Magnesium Total Bilirubin AST ALT Alkaline Phosphatase Troponin I High Sens B-Natriuretic Peptide Total Protein Albumin Influenza Type A (PCR) Influenza Type B (PCR) RSV RNA Qual (PCR) SARS-CoV-2 RNA (RT-PCR) EKG shows normal sinus rhythm with no acute ST T wave changes Assessment and Plan (1) Acute CHF: Status: Acute patient presents with increasing symptoms of shortness of breath orthopnea since recent hospitalization with evidence of mild fluid overload on clinical exam as well as only mildly elevated BNP. Overall findings are suggestive of heart failure but not in [place] heart failure at this point time. She also was noted to have left atelectasis along with left pleural effusion of unclear etiology. This may need to be investigated. Consider incentive spirometry. I would continue with IV diuresis with Lasix. Strict intake and output chart needs to be pursued. Will also add spironolactone 12.5 mg to regimen for blood pressure as well as heart failure management as well as add Jardiance 10 mg to her regimen. Continue monitor her labs it especially electrolytes and renal function. Obtain an echocardiogram. Further treatment based on the findings of the echocardiogram and management will depend on it. Possible that she has hypertensive cardiomyopathy related to her longstanding hypertension. Will follow with you. Thank you for inviting us in the consult of this patient Procedures Date of Service Date of Service: 03/12/25
[2025-03-12 11:24] LABS: Glucose, Whole Blood 213 mg/dL (60-115)
[2025-03-12] MEDS: Empagliflozin 10 MG TABLET PO (11:25)
[2025-03-12] MEDS: Spironolactone 25 MG TABLET 12.5 MG PO (11:26)
[2025-03-12 11:37] LABS: Iron 18 mcg/dL (30-160); Percent Iron Saturation 10 % (15-50); Total Iron Binding Capacity 177 mcg/dL (228-428); Unsaturated Iron Binding 159 ug/dL
[2025-03-12] MEDS: Insulin Lispro 100 UNIT/ML 3 ML VIAL SUBCUT ×2 (12:19→20:25)
[2025-03-12 16:22] LABS: Glucose, Whole Blood 127 mg/dL (60-115)
[2025-03-12 20:12] LABS: Glucose, Whole Blood 208 mg/dL (60-115)
[2025-03-12] MEDS: Enoxaparin Sodium 40 MG/0.4 ML SYRINGE SUBCUT (22:54)
[2025-03-13] MEDS: Acetaminophen 325 MG TABLET 650 MG PO ×2 (03:26→23:51)
[2025-03-13 03:29] VITALS: BP 162/77; PULSE 81; RESP 18; TEMP 36.2; O2SAT 93
[2025-03-13] MEDS: Omeprazole 20 MG CAPSULE.DR PO (05:52)
[2025-03-13 07:27] LABS: Glucose, Whole Blood 123 mg/dL (60-115)
[2025-03-13 07:42] VITALS: BP 158/82; PULSE 81; RESP 20; TEMP 36.4; O2SAT 95
[2025-03-13] MEDS: Losartan Potassium 50 MG TABLET 100 MG PO (08:50)
[2025-03-13] MEDS: Atorvastatin Calcium 20 MG TABLET PO (08:51)
[2025-03-13] MEDS: Empagliflozin 10 MG TABLET PO (08:51)
[2025-03-13] MEDS: Spironolactone 25 MG TABLET 12.5 MG PO (08:51)
[2025-03-13] MEDS: Furosemide 40 MG/4 ML VIAL IVPUSH ×2 (08:52→17:43)
[2025-03-13] MEDS: 0.9 % Sodium Chloride Flush 3 ML SYRINGE IVFLUSH ×3 (08:52→23:38)
--- NOTE | 2025-03-13 10:16 | PM.PNCARD ---
Subjective Subjective Date of Service: 03/13/25 Principal diagnosis: CHF Interval history: Patient says she is breathing better but still remains short of breath laying back. Has diuresed about 1500 cc since yesterday. Blood pressure is still elevated. Denies any prolonged palpitation irregular heartbeat. Review of Systems Constitutional: Reports no additional constitutional complaints Cardiovascular: Reports leg edema, Reports dyspnea on exertion and Reports orthopnea Respiratory: Reports no additional respiratory complaints and Reports dyspnea on exertion Gastrointestinal: Reports no additional gastrointestinal complaints Skin/Breast: Reports system reviewed and no additional complaints, except as docu Physical Exam Vital Signs: Last Vital Signs Temp 97.5 F 03/13/25 07:42 Pulse 81 03/13/25 07:42 Resp 20 03/13/25 07:42 BP 158/82 H 03/13/25 07:42 Pulse Ox 95 03/13/25 07:42 O2 Del Method Room Air 03/13/25 07:42 BMI result Body Mass Index 31.7 Const General: cooperative, comfortable, well developed, alert, awake and in distress mild and respiratory Nutritional Appearance: overweight Orientation/consciousness: patient oriented x3 HEENT Head: Yes normocephalic and Yes atraumatic Neck Neck: Yes trachea midline, Yes supple and Yes JVD Resp Effort & Inspection: normal respiratory effort Auscultation: diminished lung sounds on the left in the lower lung tuttle Cardio Jugular venous distension: JVD Rhythm: regular rhythm Heart sounds: S1 normal heart sound present, S2 normal heart sound present, no click, no gallops, no murmurs and no rubs GI Auscultation: normal bowel sounds Skin General skin exam: no rashes or lesions noted Neuro General: patient oriented x3 and no focal motor deficits Extrem General: No clubbing, No cyanosis and Yes edema ( Left greater than right) Psych Appearance: grossly normal Objective Labs and Meds 03/12/25 08:19 03/12/25 05:49 Lab results: Laboratory Results - last 24 hr 03/12/25 03/12/25 03/12/25 05:49 11:21 16:19 POC Glucose 213 H 127 H Iron 18 L TIBC 177 L % Saturation 10 L Unsat Iron Binding 159 03/12/25 03/13/25 20:05 07:21 POC Glucose 208 H 123 H Iron TIBC % Saturation Unsat Iron Binding Progress Note: A&P Assessment and plan (1) Acute CHF: Status: Acute Assessment and Plan: Acute CHF most likely due to hypertensive heart disease with diastolic dysfunction. Clinically still appears to be fluid overloaded. Enhance diuresis with Lasix 40 mg b.i.d.. Increase spironolactone to 25 mg daily. Continue Jardiance. Continue strict intake and output chart. Continue monitor electrolytes and renal function. Continue to monitor BNP. Had a blood pressure control is necessary. Mechanism of heart failure was discussed with her. Will continue to follow with you Time Spent With Patient Time: Total time managing care of this patient today ____ minutes. Progress Note: Quality Stroke Does the patient have a stroke diagnosis?: No Procedures Date of Service Date of Service: 03/13/25
[2025-03-13 11:00] VITALS: BP 160/78; PULSE 92; RESP 20; TEMP 36.4; O2SAT 96
--- NOTE | 2025-03-13 11:00 | P.PNIM_ITS ---
Subjective Subjective Date of Service: 03/13/25 Interval History: Follow up CHF still with orthopnea less sob with activity Review of Systems Review of Systems: Yes all other systems are reviewed and are negative Physical Exam 2 Vital Signs: Vital Signs: Last Vital Signs Temp 97.5 F 03/13/25 07:42 Pulse 81 03/13/25 07:42 Resp 20 03/13/25 07:42 BP 158/82 H 03/13/25 07:42 Pulse Ox 95 03/13/25 07:42 O2 Del Method Room Air 03/13/25 07:42 BMI result Body Mass Index 31.7 Appearing in no acute distress lung sounds rales heart regular rate rhythm, clear S1, S2 positive bowel sounds, abdomen is soft, nontender neuro patient is alert x3, no focal deficits Objective Data Active Medications Acetaminophen (Acetaminophen 325 Mg Tablet) 650 mg PO Q6H PRN PRN Reason: Pain, Mild 1-3,fever,headache Last Admin: 03/13/25 03:26 Dose: 650 mg Documented By: CEDRIC Atorvastatin Calcium (Atorvastatin Calcium 20 Mg Tablet) 20 mg PO DAILY COUNT [facility]CLUD[facility] Last Admin: 03/13/25 08:51 Dose: 20 mg Documented By: OSEI Calcium Carbonate (Calcium Carbonate 750 Mg Tab.Chew) 750 mg PO Q4H PRN PRN Reason: Heartburn Dextrose (Dextrose 50 % 25 Gm/50 Ml Syringe) 25 gm IVPUSH Q15M PRN; Protocol PRN Reason: per Hypoglycemia Standing Ord. Empagliflozin (Empagliflozin 10 Mg Tablet) 10 mg PO DAILY COUNT [facility] Last Admin: 03/13/25 08:51 Dose: 10 mg Documented By: OSEI Enoxaparin Sodium (Enoxaparin Sodium 40 Mg/0.4 Ml Syringe) 40 mg SUBCUT Q24H COUNT [facility] Last Admin: 03/12/25 22:54 Dose: 40 mg Documented By: CEDRIC Furosemide (Furosemide 40 Mg/4 Ml Vial) 40 mg IVPUSH DAILY COUNT [facility]; Protocol Last Admin: 03/13/25 08:52 Dose: 40 mg Documented By: OSEI Glucose (Glucose Gel 15 Gm Gel..Gram.) 15 gm PO Q15M PRN; Protocol PRN Reason: per Hypoglycemia Standing Ord. Hydralazine HCl (Hydralazine Hcl 20 Mg/Ml Vial) 5 mg IVPUSH Q4H PRN; Protocol PRN Reason: Sbp > 180 Insulin Human Lispro (Insulin Lispro 100 Unit/Ml 3 Ml Vial) 0 unit SUBCUT QIDACHS COUNT [facility]; Protocol Last Admin: 03/13/25 08:29 Dose: Not Given Documented By: OSEI Non-Admin Reason: No Insulin Coverage Losartan Potassium (Losartan Potassium 50 Mg Tablet) 100 mg PO DAILY COUNT [facility]; Protocol Last Admin: 03/13/25 08:50 Dose: 100 mg Documented By: OSEI Magnesium Hydroxide (Milk Of Magnesia 30 Ml Oral.Susp) 30 ml PO DAILY PRN PRN Reason: Constipation Melatonin (Melatonin 3 Mg Tablet) 6 mg PO BEDTIME PRN PRN Reason: Insomnia Omeprazole (Omeprazole 20 Mg Capsule.Dr) 20 mg PO DAILY@0630 COUNT [facility] Last Admin: 03/13/25 05:52 Dose: 20 mg Documented By: CEDRIC Sodium Chloride (0.9 % Sodium Chloride Flush 3 Ml Syringe) 3 ml IVFLUSH QSHIFT COUNT [facility] Last Admin: 03/13/25 08:52 Dose: 3 ml Documented By: OSEI Spironolactone (Spironolactone 25 Mg Tablet) 12.5 mg PO DAILY COUNT [facility]; Protocol Last Admin: 03/13/25 08:51 Dose: 12.5 mg Documented By: OSEI Labs 03/12/25 08:19 03/12/25 05:49 Labs: Laboratory Results - last 24 hr 03/12/25 03/12/25 03/12/25 05:49 11:21 16:19 POC Glucose 213 H 127 H Iron 18 L TIBC 177 L % Saturation 10 L Unsat Iron Binding 159 03/12/25 03/13/25 20:05 07:21 POC Glucose 208 H 123 H Iron TIBC % Saturation Unsat Iron Binding Assessment and Plan (1) Congestive cardiac failure: Status: Acute Plan 74-year-old woman admitted with acute congestive heart failure and hypertensive urgency. Acute congestive heart failure, unspecified Monitor on telemetry BNP 118 Cardiology consultation>increase lasix to 40mg BID Echocardiogram EF 60-65% with [id number] left ventricular hypertrophy no significant cardiac valvular abnormalities Monitor intake and output, daily weights -1.2L Hypertensive urgency. Trending down Uncontrolled high blood pressure likely contributing to acute onset of congestive heart failure Continue losartan, increased to 100mg daily Spironolactone and Jardiance added as per Cardiology Monitor blood pressure closely Diabetes mellitus type 2 Sliding scale, ADA diet Microcytic anemia versus iron-deficiency No obvious blood loss Monitor CBC iron 18 GERD Continue PPI Hyperlipidemia Continue statin DVT prophylaxis with Lovenox Full code Quality Stroke Does the patient have a stroke diagnosis?: No VTE Prior VTE?: No VTE Risk Level:: Medical - moderate - high VTE Device Contraindication: Treatment Not Indicated VTE Drug Contraindication: N/A - Med Ordered
[2025-03-13] MEDS: Insulin Lispro 100 UNIT/ML 3 ML VIAL SUBCUT ×2 (12:20→20:43)
[2025-03-13 15:16] VITALS: BP 139/79; PULSE 52; RESP 18; TEMP 36.4; O2SAT 97
[2025-03-13 15:27] LABS: Glucose, Whole Blood 111 mg/dL (60-115)
[2025-03-13 17:06] LABS: Glucose, Whole Blood 288 mg/dL (60-115)
[2025-03-13 17:39] VITALS: BP 130/70
[2025-03-13 19:32] VITALS: BP 130/80; PULSE 86; RESP 18; TEMP 36.7; O2SAT 96
[2025-03-13 20:45] LABS: Glucose, Whole Blood 209 mg/dL (60-115)
[2025-03-13] MEDS: Enoxaparin Sodium 40 MG/0.4 ML SYRINGE SUBCUT (23:38)
[2025-03-13] MEDS: Melatonin 3 MG TABLET 6 MG PO (23:52)
[2025-03-14] VITALS: BP 170/80; PULSE 80; RESP 16; TEMP 36.7; O2SAT 93
[2025-03-14 00:10] VITALS: BP 148/68; PULSE 73; RESP 20; O2SAT 97
[2025-03-14 04:00] VITALS: BP 150/60; PULSE 70; RESP 16; TEMP 36.2; O2SAT 92
[2025-03-14 06:01] VITALS: BMI 31.1
[2025-03-14] MEDS: Omeprazole 20 MG CAPSULE.DR PO (07:00)
[2025-03-14 07:57] LABS: Glucose, Whole Blood 150 mg/dL (60-115)
[2025-03-14 08:00] VITALS: BP 144/80; PULSE 87; RESP 20; TEMP 36.1; O2SAT 95
[2025-03-14] MEDS: Ferrous Sulfate 324 MG TABLET.DR PO (08:51)
[2025-03-14] MEDS: Spironolactone 25 MG TABLET PO (08:51)
[2025-03-14] MEDS: Atorvastatin Calcium 20 MG TABLET PO (08:51)
[2025-03-14] MEDS: Empagliflozin 10 MG TABLET PO (08:52)
[2025-03-14] MEDS: Losartan Potassium 50 MG TABLET 100 MG PO (08:52)
[2025-03-14] MEDS: 0.9 % Sodium Chloride Flush 3 ML SYRINGE IVFLUSH (08:53)
[2025-03-14] MEDS: Furosemide 40 MG/4 ML VIAL IVPUSH (08:53)
[2025-03-14 09:13] LABS: Anion Gap 13 (12-20); Blood Urea Nitrogen 25 mg/dL (9-16); Calcium 9.4 mg/dL (8.4-10.2); Carbon Dioxide 32 mmol/L (22-29); Chloride 95 mmol/L (96-108); Creatinine Clr Calc Pharmacy 45.6; Estimated Glomerular Filt Rate 57; Glucose Random 142 mg/dL (60-115); Potassium 3.5 mmol/L (3.3-5.1); Sodium 136 mmol/L (135-145)
[2025-03-14 09:17] LABS: B Type Natriuretic Peptide 25 pg/mL (<100)
[2025-03-14 11:01] VITALS: BP 126/68; PULSE 87; RESP 20; TEMP 36.2; O2SAT 96
--- NOTE | 2025-03-14 11:13 | PM.PNCARD ---
Subjective Subjective Date of Service: 03/14/25 Principal diagnosis: CHF Interval history: Patient feeling better. Had a good negative urine output overnight. BNP is 25 this morning. Feels better. Says shortness of breath is much improved. Blood pressure is better controlled. Review of Systems Review of Systems Yes all other systems are reviewed and are negative Physical Exam Vital Signs: Last Vital Signs Temp 97.2 F 03/14/25 11:01 Pulse 87 03/14/25 11:01 Resp 20 03/14/25 11:01 BP 126/68 03/14/25 11:01 Pulse Ox 96 03/14/25 11:01 O2 Del Method Room Air 03/14/25 11:01 BMI result Body Mass Index 31.1 Const General: cooperative, comfortable, well developed, alert, awake and in distress mild and respiratory Nutritional Appearance: overweight Orientation/consciousness: patient oriented x3 HEENT Head: Yes normocephalic and Yes atraumatic Neck Neck: Yes trachea midline, Yes supple and Yes no JVD Resp Effort & Inspection: normal respiratory effort Auscultation: diminished lung sounds on the left in the lower lung tuttle Cardio Jugular venous distension: JVD Rhythm: regular rhythm Heart sounds: S1 normal heart sound present, S2 normal heart sound present, no click, no gallops, no murmurs and no rubs GI Auscultation: normal bowel sounds Skin General skin exam: no rashes or lesions noted Neuro General: patient oriented x3 and no focal motor deficits Extrem General: No clubbing, No cyanosis and Yes edema ( Left greater than right, improved today) Psych Appearance: grossly normal Objective Labs and Meds 03/12/25 08:19 03/14/25 08:19 Lab results: Laboratory Results - last 24 hr 03/13/25 03/13/25 03/13/25 10:58 15:14 20:32 Sodium Potassium Chloride Carbon Dioxide Anion Gap BUN Creatinine Estim Creat Clear Calc Estimated GFR POC Glucose 288 H 111 209 H Random Glucose Calcium B-Natriuretic Peptide 03/14/25 03/14/25 07:50 08:19 Sodium 136 Potassium 3.5 Chloride 95 L Carbon Dioxide 32 H Anion Gap 13 BUN 25 H Creatinine 0.96 Estim Creat Clear Calc 45.6 Estimated GFR 57 POC Glucose 150 H Random Glucose 142 H Calcium 9.4 B-Natriuretic Peptide 25 Progress Note: A&P Assessment and plan (1) Acute CHF: Status: Acute Assessment and Plan: Acute heart failure most likely due to underlying hypertensive heart disease and recent hospitalization with fluid overload. I would send her home on Lasix 40 mg daily as well as Jardiance and spironolactone. I did discuss with the management of heart failure at home. Daily weight monitoring avoidance salt loading was discussed. Please provide her with heart failure education. Continue her usual blood pressure medications as well. Advised to monitor blood pressure at home. Advised to avoid salt loading as well. Will set up for follow-up in 2 weeks time in the office. Will also need an outpatient stress test to rule out any ischemic heart disease as a cause of her heart failure. Patient can be discharged home today. Thank you for allowing me to partake in his care Time Spent With Patient Time: Total time managing care of this patient today ____ minutes. Progress Note: Quality Stroke Does the patient have a stroke diagnosis?: No Procedures Date of Service Date of Service: 03/14/25
[2025-03-14 11:29] LABS: Glucose, Whole Blood 256 mg/dL (60-115)
[2025-03-14] MEDS: Insulin Lispro 100 UNIT/ML 3 ML VIAL SUBCUT (11:55)
--- NOTE | 2025-03-14 12:56 | MHC.CM.PN ---
EMR reviewed and per MD rounds, pt is not medically cleared for discharge due to management of CHF.
--- NOTE | 2025-03-14 13:43 | PM.DS ---
DS: Providers Provider Date of Service: 03/14/25 Date of admission: 03/11/25 22:27 Date of discharge: 03/14/25 Primary care physician: Jeff Palacios MD Consults: 03/11/25 22:27 Consult to Cardiology Routine Consulting Provider: [facility] [facility] [place] [facility] Reason for consultation: new chf DS: Diagnosis Discharge Diagnosis (1) Acute CHF: Status: Acute DS: Summary Hospital Course Hospital Course: From admission HPI: 74-year-old female with a past medical history of HTN, HLD, DM, recent admission to the hospital for hand cellulitis presented to the hospital today with a chief complaint of shortness of breath. Patient reports that over the past few days he has been having shortness of breath especially on exertion. Also reports orthopnea while sleeping for the past couple days. Today she has increased shortness of breath. Denies any cough or sputum production. She initially went to the urgent care as she noticed left leg swelling, subsequently asked her to go to the ER for further evaluation. Denies any chest pain or palpitations. Reports she is still continuing her antibiotics for her hand cellulitis which is improving. Patient denies any nausea vomiting or diarrhea. Denies any urinary symptoms. Review of all other systems is negative except mentioned above ER course: Per ER patient, patient noted to have right leg swelling; DVT study negative . D-dimer negative. CTA chest showed small left pleural effusion. Ascending aortic aneurysm. Asymmetric skin thickening of the left breast-recommended a mammogram. Hospital course: Pt was admitted for new onset CHF with mildly elevated BNP and clinically appearing fluid overloaded. Pt was treated with IV Lasix and diuresed well with net negative of 3L the past 24 hours. Received echocardiogram on 03/12/2025 which found normal LVEF of 60-65% with [id number] LV hypertrophy and elevated filling pressures, as well as moderately dilated left atrium. Additionally had left lower extremity duplex which was negative for DVT and chest CTA that was negative for PE, though did show small left pleural effusion and left lower lobe atelectasis. Patient's BNP normalized at 25 today. Pt also noted to have hypertensive urgency as high as 193/83. BP control improved with diuresing and increasing losartan to 100 mg daily. Pt seen and evaluated by Cardiology who suggested beginning furosemide 40 mg daily, spironolactone 25 mg daily, and Jardiance 10 mg daily for new medications. Pt should monitor salt intake and adhere to a low-salt diet. Check daily weights and call Cardiology if gains 2+ lb within 1 week. Pt should also follow-up with Cardiology in 2 weeks' time for monitoring and arranging for outpatient stress test to see if ischemic heart disease as a contributory cause for heart failure. Pt should follow up with PCP in 1 week's time to monitor kidney function and electrolyte levels. For kdp-[id number] type 2 diabetes, continue glipizide and metformin. Adhere to a diabetic diet For Microcytic anemia, was stable during hospitalization. Continue iron supplementation. For Hyperlipidemia continue statin For GERD continue PPI. Time Attestation Discharge Coordination Time (in mins): 37 Quality: Safe Use of Opioids Does Pt have an Active Cancer Diagnosis on the Problem List?: No Quality: Stroke Does the patient have a stroke diagnosis?: No Physical Exam Vital Signs: Vital Signs: Last Vital Signs Temp 97.2 F 03/14/25 11:01 Pulse 87 03/14/25 11:01 Resp 20 03/14/25 11:01 BP 126/68 03/14/25 11:01 Pulse Ox 96 03/14/25 11:01 O2 Del Method Room Air 03/14/25 11:01 BMI result Body Mass Index 31.1 General: AOx3, no acute distress Resp: CTA bilaterally CVS: S1, S2, RRR GI: +BS, NT, no distention Skin: Warm, dry Neuro: Cranial nerves II-XII grossly intact bilaterally. Motor grossly intact bilaterally Extremities: 1+ right lower extremity edema, 2+ left lower extremity pitting edema especially in ankle Psych: Appropriate affect DS: Data Data Completed and Pending Labs on day of discharge: Laboratory Results - last 24 hr 03/13/25 03/13/25 03/13/25 10:58 15:14 20:32 Sodium Potassium Chloride Carbon Dioxide Anion Gap BUN Creatinine Estim Creat Clear Calc Estimated GFR POC Glucose 288 H 111 209 H Random Glucose Calcium B-Natriuretic Peptide 03/14/25 03/14/25 03/14/25 07:50 08:19 11:25 Sodium 136 Potassium 3.5 Chloride 95 L Carbon Dioxide 32 H Anion Gap 13 BUN 25 H Creatinine 0.96 Estim Creat Clear Calc 45.6 Estimated GFR 57 POC Glucose 150 H 256 H Random Glucose 142 H Calcium 9.4 B-Natriuretic Peptide 25 Discharge Plan Discharge Anticipated Discharge Date/Time: 03/14/25 13:25 Patient Disposition: Home, Self-Care Discharge Diagnosis: New onset CHF Referrals: Jeff Palacios MD [Primary Care Provider] - 1 Week Discharge Medications: New Jardiance 10 mg tablet 10 mg PO DAILY Qty: 30 0RF furosemide 40 mg tablet 40 mg PO DAILY Qty: 90 0RF Rx Instructions: Take one tablet daily in the morning to prevent fluid overload spironolactone 25 mg tablet 25 mg PO DAILY Qty: 90 0RF Rx Instructions: Take one tablet daily along with furosemide to prevent fluid overload Continued losartan 50 mg tablet 50 mg PO DAILY simvastatin 40 mg tablet 40 mg PO BEDTIME metformin 1,000 mg tablet 1,000 mg PO BID omeprazole 20 mg capsule,delayed release(DR/EC) 20 mg PO DAILY@0630 glipizide 5 mg tablet 5 mg PO DAILY ferrous sulfate [iron] 325 mg (65 mg iron) Tablet 325 mg PO DAILY vitamin E 268 mg (400 unit) Capsule 268 mg PO DAILY Discontinued amoxicillin-pot clavulanate 875-125 mg tablet 1 tab PO BID Qty: 20 0RF Rx Instructions: END DATE: 03/11/25 doxycycline monohydrate 100 mg capsule 100 mg PO BID Rx Instructions: END DATE: 03/07/25 Discharge Orders: Discharge Order (Routine); Ordered 03/14/25 Ordered By: Oscar Balbuena Activity on Discharge: As tolerated Stand Alone Forms: Patient Portal Discharge page Print Language: Maltese Care Plan Goals: Resolution of SOB, CHF Health Concerns: Increased lower Plan of Treatment: Will start on furosemide 40 mg daily, spironolactone 25 mg daily, and Jardiance 10 mg daily to prevent acute CHF exacerbation Check weight daily, if gain 2+ lbs in more than a week contact cardiology for possible diuretic alteration Adhere to a low-salt diet Follow up outpatient with Cardiology in 2 weeks' time Arrange outpatient stress test with Cardiology to rule out ischemic heart disease For BP control, continue losartan 50 mg daily Monitor blood pressure daily, consider increasing losartan to 100 mg daily if BP continues to be elevated Assessment: See dicharge summary Discharge Date/Time: 03/14/25 13:58
== END 2025-03-14 13:58 | disposition home or self-care (01) | DRG 293 ==
LOC: HO.ED 21:22 → HO.EDOVER 22:35 → HO.IMC 03-12 03:15
PROVIDERS: Nurse Practitioner Acute Care; Physician Assistant Medical; Admitting Provider Hospitalist; Emergency Provider Internal Medicine; PCP Internal Medicine; Visit Provider Student in an Organized Health Care Education/Training Program
DX: I11.0 Hypertensive heart disease with heart failure (principal); K21.9 Gastro-esophageal reflux disease without esophagitis; E78.5 Hyperlipidemia, unspecified; I71.40 Abdominal aortic aneurysm, without rupture, unspecified; I50.9 Heart failure, unspecified; I43 Cardiomyopathy in diseases classified elsewhere; I16.0 Hypertensive urgency; D50.9 Iron deficiency anemia, unspecified; Z20.822 Contact with and (suspected) exposure to COVID-19; Z79.84 Long term (current) use of oral hypoglycemic drugs; Z79.899 Other long term (current) drug therapy
CPT/HCPCS: 0241U; 36415; 71046; 71275; 80048; 80053; 82947; 83540; 83735; 83880; 84484; 85025; 85027; 85379; 85610; 85730; 93005; 93306; 93971; 94640; 99285; J0360; J1650; J1938; Q9957; Q9967

== ENCOUNTER → 2025-03-11 19:00 | Outpatient (BNV) | payer OTHER, SELFPAY | PROVIDERS: Visit Provider Radiology Diagnostic Radiology | DX: M79.662 Pain in left lower leg (principal); R22.42 Localized swelling, mass and lump, left lower limb; J90 Pleural effusion, not elsewhere classified; J98.11 Atelectasis | CPT/HCPCS: 71046; 93971 ==

== ENCOUNTER 2025-03-11 22:27 | Outpatient (BNV) | payer OTHER, SELFPAY | END 2025-03-12 | PROVIDERS: Admitting Provider Hospitalist; Emergency Provider Internal Medicine; Visit Provider Radiology Diagnostic Radiology | DX: J90 Pleural effusion, not elsewhere classified (principal); J98.11 Atelectasis | CPT/HCPCS: 71275 ==

== ENCOUNTER 2025-03-11 22:27 | Outpatient (BNV) | payer OTHER, SELFPAY | END 2025-03-14 12:52 | PROVIDERS: Admitting Provider Hospitalist; Emergency Provider Internal Medicine; PCP Internal Medicine; Visit Provider Radiology Diagnostic Radiology | DX: I50.9 Heart failure, unspecified (principal) | CPT/HCPCS: 93971 ==

== ENCOUNTER 2025-03-11 22:27 | Outpatient (BNV) | payer OTHER, SELFPAY | END 2025-03-12 07:00 | PROVIDERS: Admitting Provider Hospitalist; Emergency Provider Internal Medicine; Visit Provider Internal Medicine Cardiovascular Disease | DX: I34.0 Nonrheumatic mitral (valve) insufficiency (principal) | CPT/HCPCS: 93306 ==

== ENCOUNTER → 2025-03-11 22:27 | Outpatient (BNV) | payer OTHER, SELFPAY | PROVIDERS: Admitting Provider Hospitalist; Emergency Provider Internal Medicine; Visit Provider Internal Medicine Cardiovascular Disease | DX: I50.9 Heart failure, unspecified (principal) | CPT/HCPCS: 93010; 99222 ==

== ENCOUNTER → 2025-03-11 22:27 | Outpatient (BNV) | payer OTHER, SELFPAY | PROVIDERS: Admitting Provider Hospitalist; Emergency Provider Internal Medicine; Visit Provider Hospitalist | DX: I50.9 Heart failure, unspecified (principal) | CPT/HCPCS: 99232 ==

== ENCOUNTER 2025-04-06 09:03 | Outpatient (REF) | payer OTHER, SELFPAY ==
[2025-04-06 11:02] LABS: Anion Gap 12 (12-20); Blood Urea Nitrogen 32 mg/dL (9-16); Calcium 9.7 mg/dL (8.4-10.2); Carbon Dioxide 31 mmol/L (22-29); Chloride 101 mmol/L (96-108); Estimated Glomerular Filt Rate 54; Glucose Random 159 mg/dL (60-115); Potassium 4.5 mmol/L (3.3-5.1); Sodium 139 mmol/L (135-145)
[2025-04-06 12:26] LABS: B Type Natriuretic Peptide 16 pg/mL (<100)
== END 2025-04-06 09:04 | disposition home or self-care (01) ==
LOC: HO.LAB 09:03
PROVIDERS: PCP Internal Medicine; Visit Provider Nurse Practitioner Family
DX: R06.02 Shortness of breath (principal)
CPT/HCPCS: 36415; 80048; 83880; 93005

== ENCOUNTER 2025-04-06 09:03 | Outpatient (AMB) | payer OTHER, SELFPAY ==
[2025-04-06 09:39] VITALS: BP 132/80; PULSE 86; BMI 30.1
--- NOTE | 2025-04-06 09:39 | MHC.OFFVIS ---
Vital Signs 04/06/25 09:39 Height 5 ft Weight 154 lb 5.177 oz BMI 30.1 BP 132/80 Blood Pressure Location Lt brachial Position Sitting Pulse 86 Pulse Source Pulse Oximeter Intake Visit Reasons[place] [facility] [place] [facility] [place] [facility] Allergies No Known Allergies Allergy (Verified 03/11/25 19:01) Medication List - Last Reconciled 04/06/25 by Saloni Shaw, BUILDING RIGGER-C empagliflozin (Jardiance) 10 mg PO DAILY ferrous sulfate (iron) 325 mg PO DAILY furosemide 40 mg PO DAILY glipizide 5 mg PO DAILY losartan 50 mg PO DAILY metformin 1,000 mg PO BID omeprazole 20 mg PO DAILY@0630 simvastatin 40 mg PO BEDTIME spironolactone 25 mg PO DAILY vitamin E 268 mg PO DAILY HPI HPI [facility] [place] [facility] [place] [facility]): Details: Yanna is a 74-year-old female presenting with shortness of breath and difficulty lying down. Hospitalized recently for new-onset CHF and hypertensive heart disease. History includes hypertension, diabetes, hyperlipidemia. No known prior cardiac history. Diagnosed with left-sided atelectasis, pleural effusion. Her echocardiogram showed normal EF and mild to moderate LVH, moderately dialted right atrial pressures. Treated with IV Lasix, now on spironolactone, Jardiance, and Lasix 40 mg daily. Since her hospital discharge she is noticing ongoing breathing, orthopnea requiring upright sleeping, and rib discomfort. Reports improved foot swelling, persistently dry throat, and runny nose. [facility] Medical History (Updated 04/06/25 @ 11:48 by Saloni Shaw, REGINALD-C) Surgical ciliated cyst Congestive cardiac failure HLD (hyperlipidemia) Hypertension Diabetes type 2 Family History Father No problems noted. Mother No problems noted. Social History Household Members: None Housing: House Do you presently have visiting nurse or other home services: No Patient Tobacco Use Status: Never used Tobacco Second Hand Smoke Exposure: No service: No Review of Systems Const All systems reviewed & are unremarkable except as noted in HPI and below Denies weakness ENT Denies dizziness Card Details: tightness around ribs, orthopnea Denies chest pain, Denies chest pain with activity, Denies syncope, Denies rapid heart rate, Denies pedal edema, Denies edema, Reports leg edema, Denies lightheadedness, Denies palpitations, Reports dyspnea, Reports dyspnea on exertion and Denies orthopnea Resp Denies cough, Reports dyspnea and Reports dyspnea on exertion GI Denies hematochezia and Denies change in stool character Musc Denies abnormal gait, Denies muscle cramps, Denies muscle weakness, Denies numbness, Denies radiating pain into limb and Denies tingling Neuro Denies abnormal gait, Denies dizziness, Denies syncope, Denies numbness, Denies tingling and Denies weakness Endo Denies palpitations Physical Exam Vital Signs: Last Vital Signs Pulse 86 04/06/25 09:39 BP 132/80 04/06/25 09:39 BMI result Body Mass Index 30.1 Const General: cooperative, healthy appearing, comfortable and no acute distress Orientation/consciousness: patient oriented x3 Neck Neck: Yes normal visual inspection Resp Effort & Inspection: normal respiratory effort Auscultation: clear to auscultation bilaterally, no rales, no rhonchi and no wheezes Cardio Rate: regular rate Rhythm: abnormal rhythm Heart sounds: S1 normal heart sound present, S2 normal heart sound present, no gallops, no murmurs and no rubs Neuro General: patient oriented x3 Extrem Other: mildly pitting edema of her lower legs, ankle Right upper extremity: normal to inspection Psych Appearance: grossly normal Mental Status: mental status grossly normal Speech and movement: Normal speech and movement present Office Procedures EKG Details: Today, read by me, sinus rhythm with sinus arrhythmia, junctional escape beats, rate 66. [id number], Complete Assessment & Plan Assessment & Plan (1) Shortness of breath: Code(s): R06.02 - Shortness of breath Category: Medical Plan: Reports of ongoing shortness of breath, orthopnea since her hospital discharge for new Congestive heart failure. She has been compliant with her Lasix, Aldactone and Jardiance. She has no rales on exam however has trace edema. An EKG done today is showing sinus rhythm with sinus arrhythmia, junctional escape beats, rate 64. No mention of significant bradycardia during recent hospitalization. Echocardiogram 03/11/2025 shows EF 60-65%, [id number] LVH. Will check Holter monitor to assess for significant bradycardia or arrhythmia, which can contribute to her Congestive heart failure and symptoms. Will check labs today including BMP and BNP to assess for increasing heart failure. Blood pressure is currently well controlled. Continue current meds. (2) Congestive cardiac failure: Code(s): I50.9 - Heart failure, unspecified Category: Medical Qualifiers: Heart failure chronicity: unspecified Heart failure type: unspecified Qualified Code(s): I50.9 - Heart failure, unspecified Plan: Recent [facility] with new onset diastolic Congestive heart failure. She was diuresed and sent home with Lasix 40 mg daily. She was started on Aldactone and Jardiance. (3) Abnormal EKG: Code(s): R94.31 - Abnormal electrocardiogram [ECG] [EKG] Category: Medical Plan: As above with junctional beats (4) Hospital discharge follow-up: Code(s): Z09 - Encounter for follow-up examination after completed treatment for conditions other than malignant neoplasm Category: Medical Plan: Reviewed Plan During the visit, I discussed the patient's management plan including the continuation of her medication regimen for managing CHF and symptoms post-discharge. Emphasized the importance of adherence to medications like Lasix for fluid management and spironolactone for diuretic effects. Explained the rationale for continuing Jardiance given its dual role in managing glucose and potentially benefiting heart failure. Assessed risks if CHF progresses and outlined the importance of follow-up visits. Noted patient concerns about respiratory discomfort and difficulty lying down, consistent with plausible post-heart failure management. Planned for lab work today, EKG and heart monitor to evaluate cardiac function. The patient was counseled on recognizing symptom changes and maintaining regular follow-up visits. Orders: Orders ECG 3 day holter monitor Today R06.02 - Shortness of breath Basic Metabolic Panel Today R06.02 - Shortness of breath B Type Natriuretic Peptide Today R06.02 - Shortness of breath Medications: Refilled empagliflozin (Jardiance) 10 mg PO DAILY 30 tabs 5RF Patient Instructions: - Continue taking Lasix, spironolactone, and Jardiance as directed. - Monitor for any increase in breathing difficulty or chest discomfort. - Sleep with the head elevated if lying down remains uncomfortable. - Watch for swelling in the legs and report significant changes. - Obtain labwork today and go for application of range ecologist. - Attend scheduled follow-up appointments for further assessment. - Contact healthcare provider if symptoms worsen or new symptoms arise. Patient was informed and verbally consented to the use of an ambient scribe for clinic note documentation during this visit. Visit time spent on chart review, interview, assessment, orders, documentation. Coding Level of Care Code Est Pt Level 4 (67276) Complex EM visit Add On G2211 Diagnoses Shortness of breath R06.02 Congestive heart failure, unspecified HF chronicity, unspecified heart failure type I50.9 Heart failure chronicity: unspecified Heart failure type: unspecified Abnormal EKG R94.31 Hospital discharge follow-up Z09 CPT Codes EKG - CPT: 68165-[id number], Complete ([id number]) Time Spent (min) 36
== END 2025-04-06 10:42 | disposition home or self-care (01) ==
LOC: HO.HCS 09:04
PROVIDERS: PCP Internal Medicine; Visit Provider Nurse Practitioner Family
DX: R06.02 Shortness of breath (principal); I50.9 Heart failure, unspecified; R94.31 Abnormal electrocardiogram [ECG] [EKG]; Z09 Encounter for follow-up examination after completed treatment for conditions other than malignant neoplasm
CPT/HCPCS: 93010; 99214; G2211

== ENCOUNTER → 2025-04-13 07:42 | Outpatient (REF) | payer OTHER, SELFPAY ==
--- OUTSIDE RECORDS SUMMARY | 2025-04-13 07:44 | XMS_ITS | Data Portability ---
Author Organization [place] - [facility],, ZOEY CARDOZA MD Address [address] [address] Care Team Providers Care Interdisciplinary Professor Name Role Phone LUISA BROWN Primary Care Provider [phone] Assessment No assessment recorded. Plan of Treatment Reminders Order Date Submit Date Provider Last Modified By Organization Details Last Modified Time Details Appointments ANNUAL EXAM 2024 08:00A M Zoey Cardoza MD Not available Not available Not available Lab cytolog y report, thin prep, smear or scrapin g, cervica l or vaginal 2023 024 JULIETTE [facility] (Centralized Electronic Ordering - All Locations), Patient Can Go To The Location Of Their Choice, [id number] 04/19/2024 10:16:19 hemoglo bin, gastroi ntestin al, stool 2023 024 [email or web address] 1 In-Office Order, Internal Use Only DO Not Attach Compendium DO Not Attach Compendium, Do Not Delete/merge, [id number] 04/14/2024 08:34:46 pap test, thinpre p, cervica l 2022 023 [email or web address] [facility] (Centralized Electronic Ordering - All Locations), Patient Can Go To The Location Of Their Choice, [id number] 04/30/2023 07:38:09 fecal occult blood, stool 2022 023 [email or web address] 1 In-Office Order, Internal Use Only DO Not Attach Compendium DO Not Attach Compendium, Do Not Delete/merge, [id number] 04/09/2023 09:35:31 pap test, thinpre p, cervica l 2021 022 [email or web address] [facility], Cytopathology Service, [address] [place] [address], [id number], 04/24/2022 07:31:22 fecal occult blood, stool 2021 022 [email or web address] 1 In-Office Order, Internal Use Only DO Not Attach Compendium DO Not Attach Compendium, Do Not Delete/merge, [id number] 04/10/2022 09:49:53 pap test, thinpre p, cervica l 2020 021 [email or web address] [facility], Cytopathology Service, [address] [place] [address], [id number], 04/10/2021 07:39:59 fecal occult blood, stool 2020 021 JULIETTE In-Office Order, Internal Use Only DO Not Attach Compendium DO Not Attach Compendium, Do Not Delete/merge, [id number] 03/27/2021 11:59:50 pap test, thinpre p, cervica l 2019 020 [email or web address], [facility] Service, [address] [place] [address], [id number], 03/29/2020 07:35:07 fecal occult blood, stool 2019 020 verona In-Office Order, Internal Use Only DO Not Attach Compendium DO Not Attach Compendium, Do Not Delete/merge, [id number] 03/29/2020 07:35:07 Referral None recorde d. Procedures None recorde d. Surgeries None recorde d. Imaging MAMMO, screeni ng, digital , bilater al - Breast Aspirat ion and/or Biopsy if needed 2023 0[facility], [address], [place], [address], 09/29/2024 12:05:02 MAMMO, screeni ng, digital , bilater al - Breast Aspirat ion and/or Biopsy if needed 2022 023 [facility], [address], [place], [address], 09/24/2023 07:55:01 MAMMO, screeni ng, digital , bilater al 2021 022 [facility] Orders, [address], [address], [place], [address], 08/07/2022 08:36:51 MAMMO, screeni ng, digital , bilater al 2020 021 [facility] Orders, [address], [address], [place], [address], 08/01/2021 08:34:48 bone density 2020 021 [facility]), [address], [place], [address], 03/22/2023 07:37:42 MAMMO, screeni ng, digital , bilater al 2019 020 [facility] Imaging Orders, [address], [address], [place], [address], 07/26/2020 08:03:30 Medication Orders None recorde d. Patient TargetsNo targets recorded. Patient Instructions Encounter Date Encounter Id Patient Instructions Last Modified By Organization Details Last Modified Time 03/22/2020 [id number] She is here for annual exam, is doing well. She has a past history of left lumpectomy and RTx for breast cancer. Note from 2019: She is here for annual exam, is doing well. 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 She is advised to get 1500 mg of calcium daily into her diet and supplements combined. We discussed the benefits of adequate vitamin D supplementation to at least 400 units daily, daily aerobic exercise of 30 minutes, and stress reduction. Monthly self breast exam was taught, and stressed, and is advised to call if she discovers any new mass in the breast. Seat belt use for herself and passengers advised. The significant health benefits of becoming and remainig fit, with an optimal BMI, were also discussed. We discussed the potential reduction in chronic discomfort, the diminished risks of hypertension, diabetes, and heart disease with the proper weight management, and improved mobility as she ages. Strategies to reach and maintain her target weight wer discussed in detail, all questions answered. Not available 03/22/2020 08:56:13 03/27/2021 [id number] advance benefici oniel notice information Not available 03/27/2021 09:47:16 advance care planning for heart failure: care instructions Not available 03/27/2021 09:47:16 learning about healthy weight Not available 03/27/2021 11:14:12 learning about t ype 2 diabetes Not available 03/27/2021 09:47:16 type 2 diabetes: care instructions Not available 03/27/2021 09:47:16 She is here for annual exam, is doing well. She has a past history of left lumpectomy and RTx for breast cancer. On exam: there is a 4 cm round superficial irregular area of skin abrasion where she had shingles in June 2020 and I pick it every day, it's a nervous habit. She appears to be doing well. She is advised to put aegaderm dressings on her abdominalprevent skin to herself from scratching the skin off. She has not had a covid vaccine yet, neither has her . They watch [employer] and she feels that this news channel validates her concerns that there is not enough know about the vaccine yet, I'm going to wait for it to be approved. We had a a 10 minute discussion of her vaccine hesitancy, I explained how a messenger RNA vaccine works, she is appreciative of the information but feels the vaccine is not something she wants to do right now. She is advised to get 1500 mg of calcium daily into her diet and supplements combined. We discussed the benefits of adequate vitamin D supplementation to at least 400 units daily, daily aerobic exercise of 30 minutes, and stress reduction. Monthly self breast exam was taught, and stressed, and is advised to call if she discovers any new mass in the breast. Not available 03/27/2021 09:46:41 04/10/2022 [id number] learning about healthy weight Not available 04/10/2022 09:49:53 She is here for annual exam, is doing well. She has a past history of left lumpectomy and RTx for breast cancer. Her is in [facility] dementia paredes now, he is happy there. She appears to be doing well. She is advised to get 1500 mg of calcium daily into her diet and supplements combined. There is a health benefit with adequate vitamin D supplementation to at least 400 units daily, daily aerobic exercise of 30 minutes, and stress reduction. Monthly self breast exam was taught, and stressed, and is advised to call if she discovers any new mass in the breast. Not available 04/10/2022 09:50:38 04/09/2023 [id number] learning about healthy weight Not available 04/09/2023 09:35:32 She is here for annual, doing well. Her is in the [facility], he does not know who she is anymore, but he is well taken care of. She has another friend there, also, who she can spend time with. note from 2021: She is here for annual exam, is doing well. She has a past history of left lumpectomy and RTx for breast cancer. Her is in [facility] dementia paredes now, he is happy there. She appears to be doing well. Monthly self breast exam was taught, and stressed, and is advised to call if she discovers any new mass in the breast. Not available 04/09/2023 09:38:05 04/14/2024 [id number] learning about healthy weight glenn Not available 04/14/2024 08:34:46 She is here for annual, past histroy breast cancer, doing well. Her is still in the dementia unit at the [facility]. She has a boyfriend, he lives at the [facility] as well, he had a brain aneurysm and stroke and is paralysed on the right side of his body, but he can walk a bit with a cane and use wheelchair. They are going to go to [place] for a few days. Note from 2022: She is here for annual, doing well. Her is in the [facility], he does not know who she is anymore, but he is well taken care of. She has another friend there, also, who she can spend time with. note from 2021: She is here for annual exam, is doing well. She has a past history of left lumpectomy and RTx for breast cancer. Her is in [facility] dementia paredes now, he is happy there. She appears to be doing well. . Monthly self breast exam was taught, and stressed, and is advised to call if she discovers any new mass in the breast. glenn Not available 04/14/2024 08:34:56 Reason for Referral None Reported. Results Created Date Observation Date Name Description Value Unit Range Abnormal Flag Note LastModifiedBy Organization Detail LastModifiedTime 03/22/2003/22/2020 fecal occul t blood , stool Occult Blood negati ve Not Available In-Office Order Internal Use Only DO Not Attach Compendium DO Not Attach Compendium, Do Not Delete/merge, [id number] 03/22/2020 08:18:21 03/22/20 20 03/22/2020 pap, LB [id number] ThinP rep Pap, Image d: NEGAT WENDY FOR SQUAM OUS INTRA EPITH ELIAL LESIO N AND BLAKE MONSERRAT . Atrop hy with infla mmati on is prese nt. Rachael fatima , CT( CP) (Case elect beatriz bill judith d 03 27 2020) ADEQU ACY: Satis facto ry Endoc ervic al/tr ansfo rmati on zone compo nent prese nt. SOURC E: ThinP rep Pap HPV IF ASCUS , Cervi stephanie, Image d CLINI STEPHANIE INFOR MATIO N: HPV If Diagn osis of ASCUS . LPS neg, z77.9 , z91.8 9 Not Available [facility], Cytopathology Service [address] [place], [address], 03/27/2020 12:41:30 03/27/20 21 03/27/2021 pap test, thinp rep, cervi stephanie [id number] ThinP rep Pap, Image d: NEGAT WENDY FOR SQUAM OUS INTRA EPITH ELIAL LESIO N AND MALDARLENE GERMAN . Sirisha Busch , CT( CP) (Case elect beatriz bill judith d 04 08 2021) ADEQU ACY: Satis facto ry Endoc ervic al/tr ansfo rmati on zone compo nent prese nt. SOURC E: ThinP rep Pap HPV IF ASCUS , Cervi stephanie, Image d CLINI STEPHANIE INFOR MATIO N: HPV If Diagn osis of ASCUS . H/O BR CA [R87. 619] Not Available [facility], Cytopathology Service [address] [place], [address], 04/09/2021 07:26:45 03/27/20 21 03/27/2021 fecal occul t blood , stool Occult Blood negati ve Not Available In-Office Order Internal Use Only DO Not Attach Compendium DO Not Attach Compendium, Do Not Delete/merge, [id number] 03/27/2021 11:01:51 04/10/20 22 04/10/2022 PAP1C ASE [id number] ThinP rep Pap, Image d: NEGAT WENDY FOR SQUAM OUS INTRA EPITH ELIAL LESIO N AND MALDARLENE MONSERRAT . Branden S Carol r , CT( CP) (Case elect beatriz bill judith d 04 18 2022) ADEQU ACY: Satis facto ry Endoc ervic al/tr ansfo rmati on zone compo nent prese nt. SOURC E: ThinP rep Pap HPV IF Ascus : Refle x 16 and 18, Cervi stephanie, Image d CLINI STEPHANIE INFOR MATIO N: HPV If Diagn osis of ASCUS . lps neg. [Z12. 4] Not Available [facility], Cytopathology Service [address] [place], [address], 04/20/2022 07:55:48 04/10/20 22 04/10/2022 fecal occul t blood , stool Occult Blood negati ve Not Available In-Office Order Internal Use Only DO Not Attach Compendium DO Not Attach Compendium, Do Not Delete/merge, [id number] 04/10/2022 08:09:01 04/09/20 23 04/09/2023 [facility] CYTOL OGY results Patie nt Name: YVONNE TRAN nt : [birth year] (Age: 72) Lab Acces [place] #: [id number] Colle ction Date: 023 Acces natalia Date: 2022 Sign Out Date: 2022 Tissu e Sourc e: 1: THINP REP [employer] PAP TEST, CERVI STEPHANIE: Final Diagn osis: NEGAT WENDY FOR INTRA EPITH ELIAL LESELMA N OR MALDARLENE GERMAN . Satis facto ry for evalu ation . Endoc ervic al/tr ansfo rmati on zone prese nt. Clini stephanie Histo ry: Date of Last Menst rual Perio d: not avail able Menst rual Histo ry: not avail able Contr acept wendy Histo ry: not avail able Ancil tami Testi ng: HPV (ASCU S) Case image d by the ThinP rep Imagi ng Syste m with sony barker or eliel hardy Perfo rmed at [facility] ate Refer ence Labor atory depar tment of Cytol ogy, [address] [place] Clini stephanie Histo ry (othe r): LPS- 2-NEG Phone #: [phone], On-Ca ll Patho logis t: [id number] Not Available [facility] (Centralized Electronic Ordering - All Locations) Patient Can Go To The Location Of Their Choice, [id number] 04/29/2023 08:50:41 04/09/20 23 04/09/2023 fecal occul t blood , stool Occult Blood negati ve Not Available In-Office Order Internal Use Only DO Not Attach Compendium DO Not Attach Compendium, Do Not Delete/merge, [id number] 04/09/2023 09:07:36 04/14/20 24 04/19/2024 IGP, RFX APTIM A HPV ASCU diagnosis: Madhu NGUYEN FOR INTRA EPITH ELIAL GIULIANA Tsang OR BLAKE GERMAN . THIS SPECI MEN WAS RESCR EENED PART OF OUR QUALI TY CONTR OL PROGR AM. Not Available [facility] ([facility]) [address] [facility], [place], [address], 04/19/2024 10:16:19 04/14/20 24 04/19/2024 IGP, RFX APTIM A HPV ASCU specimen adequacy: Madhu lucia Satis facto elva for evalu ation . Endoc ervic al and/o r squam ous metap lasti c cells (endo cervi stephanie compo nent) are prese nt. Not Available [facility] ([facility]) [address] [facility], [place], [address], 04/19/2024 10:16:19 04/14/20 24 04/19/2024 IGP, RFX APTIM A HPV ASCU clinician provided ICD10: Madhu lucia Z01.4 19 Not Available [facility] ([facility]) [address] [facility], [place], [address], 04/19/2024 10:16:19 04/14/20 24 04/19/2024 IGP, RFX APTIM A HPV ASCU performed by: Madhu stevenson A Prior , Cytot echno logis t (ASCP ) Not Available [facility] ([facility]) [address] [facility], [place], [address], 04/19/2024 10:16:19 04/14/20 24 04/19/2024 IGP, RFX APTIM A HPV ASCU QC reviewed by: Madhu Khan sa J Genoveva y, Cytot echno logis t (ASCP ) Not Available [facility] ([facility]) [address] [place], [address], 04/19/2024 10:16:19 04/14/20 24 04/19/2024 IGP, RFX APTIM A HPV ASCU . . Not Available [facility] ([facility]) [address] [facility], [place], [address], 04/19/2024 10:16:19 04/14/20 24 04/19/2024 IGP, RFX APTIM A HPV ASCU note: Madhu lucia The Pap smear is a scree unique test desig yosi to aid in the detec tion of eagle ligna nt and malig nant condi tions of the uteri ne cervi x. It is not a diagn ostic proce dure and shoul d not be used as the sole means of detec ting cervi stephanie cance r. Both false -posi tive and false -nega tive repor ts do occur . Not Available [facility] ([facility]) [address] [facility], [place], [address], 04/19/2024 10:16:19 04/14/20 24 04/19/2024 IGP, RFX APTIM A HPV ASCU test methodology: Madhu lucia This liqui d based ThinP rep(R ) pap test was scree yosi with the use of an image guide benito stevenson. Not Available [facility] ([facility]) [address] [facility], [place], [address], 04/19/2024 10:16:19 04/14/20 24 04/19/2024 IGP, RFX APTIM A HPV ASCU . Commen t The HPV DNA refle x crite zofia were not met with this speci men resul t there fore, no HPV testi ng was perfo rmed. Not Available [facility] ([facility]) [address] [facility], [place], [address], 04/19/2024 10:16:19 04/14/20 24 04/14/2024 hemog lobin , gastr ointe toy l, stool Occult Blood negati ve Not Available In-Office Order Internal Use Only DO Not Attach Compendium DO Not Attach Compendium, Do Not Delete/merge, [id number] 04/14/2024 08:11:42 07/26/20 20 07/26/2020 MAMMO , scree unique, digit al, bilat eral No observ ation record ed. [address] [facility] [address] [facility] [address], [place], [address], 07/26/2020 08:17:17 08/01/20 21 08/01/2021 MAMMO , scree unique, digit al, bilat eral No observ ation record ed. [address] [facility] [address] [facility] [address], [place], [address], 08/01/2021 08:58:57 08/07/20 22 08/07/2022 MAMMO , scree unique, digit al, bilat eral No observ ation record ed. [address] [facility] [address] [facility], [place], [address], 08/07/2022 09:12:20 09/24/20 23 09/24/2023 MAMMO , scree unique, digit al, bilat eral No observ ation record ed. [address] [facility] [address] [facility], [place], [address], 09/27/2023 07:25:10 09/29/20 24 09/29/2024 MAMMO , scree unique, digit al, laura sanchez No observ ation record ed. [facility] [address] [place], [address], 10/02/2024 06:37:28 Result Notes None recorded. 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 oZey Cardoza MD [address], [place], [address], [place] - [facility], 5 09:51:31 Breast lump 41444599 Active Zoey Cardoza MD [address], [place], 5, [place] - [facility], 5 09:51:31 Type 2 diabetes mellitus 11676589 Active 2018 Zoey Cardoza MD [address], [place], 5, [place] - [facility], 9 08:39:01 Abscess of vulva 90964052 Active 2018 Zoey Cardoza MD [address], [place], 5, [place] - [facility], 9 08:39:14 Vaccinatio n hesitancy by patient 197471057 Active 2020 Zoey Cardoza MD [address], [place], 5, [place] - [facility], 1 09:46:52 Problem Notes None recorded. Procedures Surgical History Date Name Laterality Status Provider Name and Address Organization Details Recorded Time 09/29/20 24 Most Recent Mammogram completed Terrie Moses [place] - [facility], 03/23/2025 07:51:40 03/10/20 19 I&D completed Zoey Cardoza MD [address], [place], [address], [place] - [facility], 03/10/2019 10:13:17 11/01/19 07 Breast Biopsy completed Terrie Josué [place] - [facility], 10/31/2014 08:06:59 Oophorectomy completed Zoey Cardoza MD [address], [place], [address], [place] - [facility], 10/27/2012 11:46:50 Imaging Results None recorded. Procedure Notes None recorded. Medical Equipment None Reported. Allergies No known drug allergies Medications Name Sig Start Date Stop Date Status Note LastModified by Organization Details LastModified Time losartan 50 mg tablet TAKE 1 TABLET DAILY active Not Available Not Available No t Available amoxicillin 500 mg capsule TAKE 1 CAPSULE BY MOUTH THREE TIMES DAILY 04/09 completed Not Available Not Available Not Available prednisone 10 mg tablet active Not Available Not Available Not Available ibuprofen 800 mg tablet 03/12 completed Not Available Not Available Not Available valacyclovi r 1 gram tablet TAKE 1 TABLET BY MOUTH EVERY 8 HOURS FOR 7 DAYS 04/10 completed Not Available Not Available Not Available FreeStyle Lancets 28 gauge active Not Available Not Available Not Available lisinopril 20 mg tablet 04/14 completed Not Available Not Available Not Available ondansetron HCl 4 mg tablet TAKE 1 TABLET BY MOUTH EVERY 4 TO 6 HOURS NEEDED FOR NAUSEA 04/14 completed Not Available Not Available Not Available clindamycin HCl 150 mg capsule 03/12 completed Not Available Not Available Not Available sulfamethox azole 800 mg-trimetho prim 160 mg tablet TAKE 1 TABLET BY MOUTH TWICE DAILY 03/27 completed Not Available Not Available Not Available simvastatin 40 mg tablet TAKE 1 TABLET AT BEDTIME active Not Available Not Available No t Available doxycycline monohydrate 100 mg capsule TAKE 1 CAPSULE BY MOUTH TWICE A DAY FOR 10 DAYS active Not Available Not Available No t Available simvastatin 20 mg tablet TAKE 1 TABLET BY MOUTH ONCE DAILY AT BEDTIME active Not Available Not Available No t Available metformin 1,000 mg tablet TAKE 1 TABLET TWICE A DAY active Not Available Not Available No t Available esomeprazol e magnesium 40 mg capsule,del ayed release TAKE ONE CAPSULE BY MOUTH ONCE DAILY 04/09 completed Not Available Not Available Not Available lisinopril 10 mg tablet TAKE 1 TABLET BY MOUTH ONCE DAILY FOR 30 DAYS 04/09 completed Not Available Not Available Not Available omeprazole 20 mg capsule,del ayed release TAKE 1 CAPSULE DAILY active Not Available Not Available No t Available ibuprofen 600 mg tablet TAKE 1 TABLET BY MOUTH EVERY 4 TO 6 HOURS NEEDED 04/09 completed Not Available Not Available Not Available levofloxaci n 500 mg tablet Take 1 tablet every 24 hours by oral route. 03/20 completed Not Available Not Available Not Available losartan 100 mg tablet TAKE 1 TABLET DAILY active Not Available Not Available No t Available metformin ER 500 mg tablet,exte nded release 24 hr Take 1 tablet every day by oral route. 03/22 completed Not Available Not Available Not Available glipizide 5 mg tablet TAKE 1 TABLET DAILY active Not Available Not Available No t Available amoxicillin 875 mg-potassiu m clavulanate 125 mg tablet TAKE 1 TABLET BY MOUTH TWICE A DAY active Not Available Not Available No t Available Low Dose Aspirin 81 mg tablet,vineet yed release Take 1 tablet every day by oral route. active Not Available Not Available No t Available chlorhexidi ne gluconate 0.12 % mouthwash SWISH MOUTH AND SPIT WITH 15ML FOR 30 SECONDS TWICE DAILY IN THE MORNING AND IN THE EVENING FOR 2 WEEKS. 04/09 completed Not Available Not Available Not Available Nexium 1 tablet daily active Not Available Not Available No t Available ProAir HFA 90 mcg/actuati on aerosol inhaler 03/12 completed Not Available Not Available Not Available FreeStyle Lite Meter kit USE DIRECTED TO CHECK BLOOD SUGAR NEEDED active Not Available Not Available No t Available FreeStyle Lite Strips USE 1 STRIP TO CHECK GLUCOSE DAILY AND NEEDED FOR SYMPTOMS active Not Available Not Available No t Available Multi Vitamin 03/18 completed Not Available Not Available Not Available Vitals Date Recorded Body temperature Heart rate Body weight Body mass index (BMI) Body height Systolic blood pressure Diastolic blood pressure Provider Name and Address Organization Details Last Updated DateTime 0 97.5 [degF] 78 /min 96397.3 5 g 36.3 kg/m2 147.32 cm 173 mm[Hg] 83 mm[Hg] Cee Swansonmichi Naidu [facility], 0 08:06:33 Date Recorded Body height Body mass index (BMI) Body weight Body temperature Provider Name and Address Organization Details Last Updated DateTime 03/27/2021 147.32 cm 35.3 kg/m2 79937.11 g 97.3 [degF] Shanique Prater in [facility], 03/27/2021 08:21:44 Date Recorded Body height Body mass index (BMI) Body weight Heart rate Systolic blood pressure Diastolic blood pressure Provider Name and Address Organization Details Last Updated DateTime 3 149.86 cm 31.9 kg/m2 45334.5 9 g 74 /min 155 mm[Hg] 82 mm[Hg] Shanique Naidu [facility], 3 09:08:04 Date Recorded Body height Body mass index (BMI) Body weight Body temperature Heart rate Systolic blood pressure Diastolic blood pressure Provider Name and Address Organization Details Last Updated DateTime 2 149.86 cm 34.1 kg/m2 83526.1 1 g 97.2 [degF] 65 /min 154 mm[Hg] 97 mm[Hg] Terrie [facility] [facility] 08:17:04 Date Recorded Body weight Body mass index (BMI) Body height Body temperature Heart rate Systolic blood pressure Diastolic blood pressure Provider Name and Address Organization Details Last Updated DateTime 4 38649.5 6 g 32.9 kg/m2 149.86 cm 97.3 [degF] 58 /min 177 mm[Hg] 62 mm[Hg] [facility], 4 08:14:57 Social History Question Answer Notes LastModified by Organizat ion Details LastModified Time Tobacco Smoking Status Never Smoker Not Available [employer] 09/03/2020 03:19:39 How Many Years Have You Consumed Alcohol? 50 Information not available 04/10/2022 What Is Your Level Of Caffeine Consumption? Heavy [id number] Information not available 09/03/2020 In The 14 Days Before Symptom Onset, Have You Had Close Contact With A Laboratory-confirm ed COVID-19 While That Case Was Ill? No Information n ot available 04/10/2022 In The 14 Days Before Symptom Onset, Have You Had Close Contact With A Person Who Is Under Investigation For COVID-19 While That Person Was Ill? No Information not available 04/10/2022 Have You Been To An Area Known To Be High Risk For COVID-19? No Information not available 04/10/2022 What Type Of Diet Are You Following? REGULAR [id number] Information n ot available 09/03/2020 Which Illicit Or Recreational Drugs Have You Used? None [id number] Information not available 09/03/2020 Do You Reside In Or Have You Traveled To An Area Where Ebola Virus Transmission Is Active? No [id number] Information not available 09/03/2020 Education 12 Information no t available 10/27/2012 What Is The Highest Grade Or Level Of School You Have Completed Or The Highest Degree You Have Received? [id number] Information not available 04/10/2022 Who Is Your Employer? [employer] Information not available 04/10/2022 How Many Days In The Past Year Have You Had A Heavy Drinking Consumption (4+ Female, 5+ Male)? 0 Information no t available 03/12/2017 Are There Any Guns Present In Your Home? No Information not available 04/10/2022 High Number Of Sexual Partners No Information not available 03/12/2017 To Which Gender Do You Self-identify? Female Information n ot available 03/12/2017 Marital Status Informatio n not available 10/27/2012 What Was The Date Of Your Most Recent Tobacco Screening? 04/14/2024 [email or web address] Information not available 04/14/2024 What Is Your Relationship Status? Information not available 04/10/2022 Are You Sexually Active? No Information not available 04/10/2022 How Much Tobacco Do You Smoke? No [id number] Information not available 09/03/2020 General Stress Level Medium Information not available 04/10/2022 How Many Years Have You Smoked Tobacco? 0 [id number] Information not available 09/03/2020 Have You Recently (within The Last 12 Weeks, Or During A Current ) Traveled To Or Lived In A Zika-affected Area? No Information not available 03/12/2017 How Many Days In The Past Year Have You Consumed 4 Or More Drinks? 0 Information not available 04/10/2022 Sex: Female Functional Status Question Answer Note LastModified by Organizat ion Details LastModified Time Do you use any illicit or recreational drugs? No Information not available 04/10/2022 Do you or have you ever used any other forms of tobacco or nicotine? No [email or web address] Information not available 04/09/2023 What is your level of alcohol consumption? Occasional Information not available 04/10/2022 Do you or have you ever used smokeless tobacco? Never used smokeless tobacco [id number] Information not available 09/03/2020 Are you currently employed? 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 Occasional [id number] Information not available 09/03/2020 Mental Status Question Answer Note LastModified by Organization D etails LastModified Time Do you feel stressed (tense, restless, nervous, or anxious, or unable to sleep at night)? [id number] Information not available 04/10/2022 Family History Nothing Reported Notes:Pt is Adopted Medical History Condition Response Anesthesia complications N High Blood Pressure N Lung Disease N Depression N Defects or Inherited Disease N History of Ovarian Cancer N BRCA testing in past N Anxiety Disorder N Arthritis N Infertility N History of Cancer Y Endometriosis N Kidney or Bladder Problems N Thyroid Problems N GI Problems Y Anemia N History of Breast Cancer Y Psychiatric Illness N Diabetes N Headaches or Migraines N Asthma Y Hepatitis N Heart Disease N Hypertension N Gynecological History Statement/Question Response Menses Monthly N If Post Menopausal, Age at Menopause Age at Menarche 13 Most Recent Mammogram 09/29/2024 Most Recent Bone Density Hormone Replacement Therapy N Obstetrics History GPAL:G 2 P 1 0 1 1 Type Value Full Term 1 Spontaneous 1 Living 1 Total 2 Immunizations Vaccine Type Date Status Note Provider Nam e and Address Organization Details Recorded Time COVID-19 vaccine, vector-nr, rS-Ad26, PF, 0.5 mL 12/30/2020 completed Terrie myrick MA - [facility], 04/10/2022 08:19:16 Past Encounters Encounter ID Performer Location Encounter Start Date Encounter Closed Date Diagnosis/Indication Diagnosis SNOMED-CT Code Diagnosis ICD10 Code Diagnosis Note [id number] MD ZOEY Roman MD [address] [place] [address], [address] [place] [id number] 5 10/27/2012 08:32:27 10/28/2012 08:36:54 [id number] MD ZOEY Roman MD [address] [place] [address],[address] [phone] 10/30/2013 07:50:26 10/30/2013 09:46:06 Specialized medical examination [id number] Screening for malignant neoplasm of rectum 151415749 Screening mammography [id number] MD ZOEY Roman MD [address] [place] [address], [address] [place] [id number] 5 10/31/2014 07:50:05 10/31/2014 08:46:34 Specialized medical examination 30608216 Screening for malignant neoplasm of rectum 988086461 Screening mammography 46165109 Breast lump 78433915 [id number] MD ZOEY Roman MD [address] [place] [address],[address] [address] 5 10/31/2015 07:48:30 10/31/2015 10:28:20 Specialized medical examination 49355228 Z01.419 Screening for malignant neoplasm of rectum 073772907 Z12.12 Screening mammography 24 979968 Z12.31 [id number] MD ZOEY Roman MD [address] [place] [address], [address] [place] [id number] 5 03/12/2017 08:02:11 03/12/2017 10:15:43 Specialized medical examination 28439371 Z01.419 Screening for malignant neoplasm of rectum 258189731 Z12.12 Screening mammography [address] [facility] 9345085 K29.70 Cares for self 399210645 Z76.89 [id number] MD ZOEY Roman MD [address] [place] [address],[place] [address] 03/18/2018 08:08:14 03/18/2018 09:42:28 Specialized medical examination 10845399 Z01.419 Screening for malignant neoplasm of rectum 599039745 Z12.12 Screening mammography 24 077947 Z12.31 Cares for self 750257200 Z76.89 [id number] MD ZOEY Roman MD [address] [place] [address],[place] [address] 03/09/2019 10:24:10 03/09/2019 12:51:52 Abscess of vulva 43666541 N76.4 [id number] MD ZOEY Roman MD [address] [place] [address], [place] [address] 03/10/2019 07:57:31 03/10/2019 12:06:51 Abscess of vulva 15366535 N76.4 [id number] MD ZOEY Roman MD [address] [place] [address], [place] [address] 03/13/2019 08:11:27 03/13/2019 10:10:45 Type 2 diabetes mellitus without complication 687896611 E11.9 Abscess of vulva 4201132 1 N76.4 [id number] MD ZOEY Roman MD [address] [place] [address], [place] [address] 03/20/2019 13:21:20 03/20/2019 14:02:55 Specialized medical examination 82131989 Z01.419 Screening for malignant neoplasm of rectum 914477305 Z12.12 Screening mammography 24 191509 Z12.31 [id number] MD ZOEY Roman MD [address] [place] [address], [place] [address] 03/22/2020 07:58:01 03/22/2020 09:28:07 Specialized medical examination 49064492 Z01.419 Screening for malignant neoplasm of rectum 572668988 Z12.12 Screening mammography 24 396569 Z12.31 [id number] MD ZOEY Roman MD [address] [place] [address], [address] [place] [id number] 5 03/27/2021 08:17:33 03/27/2021 10:42:25 Screening mammography 06893036 Z12.31 Advance care planning 71 0305605 Z71.89 Screening for osteoporosis 900891966 Z13.820 Type 2 mary lou betes mellitus 27198312 E11.8 Specialize d medical examination 74978385 Z01.419 Screening for malignant neoplasm of rectum 484556825 Z12.12 [id number] MD ZOEY Roman MD [address] [place] [address],[facility] [address] [place] [id number] 5 04/10/2022 08:04:11 04/10/2022 10:46:08 Specialized medical examination 92619727 Z01.419 Screening for malignant neoplasm of rectum 006663326 Z12.12 Screening mammography 24 980771 Z12.31 [id number] MD ZOEY Roman MD [address] [place], [place] [address]E [address] [place] [id number] 5 04/09/2023 08:51:45 04/09/2023 10:11:10 Specialized medical examination 79962243 Z01.419 Screening for malignant neoplasm of rectum 616422268 Z12.12 Screening mammography 24 740042 Z12.31 [id number] MD ZOEY Roman MD [address] [place], [place] [address] [address] [place] [id number] 04/14/2024 08:09:09 04/14/2024 11:44:47 Specialized medical examination 86959857 Z01.419 Screening for malignant neoplasm of rectum 521301571 Z12.12 Screening mammography 24 714599 Z12.31 Health Concerns Section Related Observation LastModified by Organization Detai ls LastModified Time None Recorded Concern Status LastModified by Organization Details LastModified Time None Recorded Advance Directives Directive None Recorded Payers Insurance Date Sequence Insurance Name Policy Number Policy Saunders Covered Member ID Saunders Member ID Guarantor Name 04/03/2025 1 [employer] [facility] [id number] Yvonne Parks [id number] Yvonne Parks Notes Date Note Type Note Provider Name and Address Organization Details Recorded Time 03/22/2020 text/html She is here for annual exam, is doing well. She has a past history of left lumpectomy and RTx for breast cancer. Note from 2019: She is here for annual exam, is doing well. 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 Zoey Cardoza MD [address], [place], [address], [employer] [facility], 03/22/2020 08:56:35 03/27/2021 text/html She is here for annual exam, is doing well. She has a past history of left lumpectomy and RTx for breast cancer. Zoey Cardoza MD [address], [place], [address], [employer] [facility], 03/27/2021 11:14:18 04/10/2022 text/html She is here for annual exam, is doing well. She has a past history of left lumpectomy and RTx for breast cancer. Zoey Cardoza MD [address], [place], [address], [employer] [facility], 04/10/2022 09:50:58 04/09/2023 text/html She is here for annual, doing well. Her is in the [facility], he does not know who she is anymore, but he is well taken care of. She has another friend there, also, who she can spend time with. note from 2021: She is here for annual exam, is doing well. She has a past history of left lumpectomy and RTx for breast cancer.Her is in [facility] dementia paredes now, he is happy there. Zoey Cardoza MD [address] [facility],[address], [place], [address], [place] [facility], 04/09/2023 09:38:33 04/14/2024 text/html She is here for annual, past histroy breast cancer, doing well. Her is still in the dementia unit at the [facility]. She has a boyfriend, he lives at the [facility] as well, he had a brain aneurysm and stroke and is paralysed on the right side of his body, but he can walk a bit with a cane and use wheelchair. They are going to go to [place] for a few days. __ Note from 2022: She is here for annual, doing well. Her is in the [facility], he does not know who she is anymore, but he is well taken care of. She has another friend there, also, who she can spend time with. note from 2021: She is here for annual exam, is doing well. She has a past history of left lumpectomy and RTx for breast cancer.Her is in [facility] dementia paredes now, he is happy there. Zoey Cardoza MD [address] [facility],[address], [place], [address], [place] [facility], 04/14/2024 08:39:07 OBGyn Episode No OBEpisode recorded.
== END ==
LOC: HO.CARD 07:42
PROVIDERS: PCP Internal Medicine; Visit Provider Nurse Practitioner Family
DX: R06.02 Shortness of breath (principal)
CPT/HCPCS: 93242

== ENCOUNTER → 2025-04-13 07:53 | Outpatient (BNV) | payer OTHER, SELFPAY | PROVIDERS: PCP Internal Medicine; Visit Provider Internal Medicine | DX: I47.10 Supraventricular tachycardia, unspecified (principal) | CPT/HCPCS: 93244 ==

== ENCOUNTER 2025-04-16 06:59 | Outpatient (REF) | payer OTHER, SELFPAY ==
--- NOTE | ~2025-04-16 | XR_ITS ---
EXAMINATION: XR CHEST CLINICAL INFORMATION: R06.02 - Shortness of breath COMPARISON: 03/11/2025. TECHNIQUE: 2 views of the chest were obtained. FINDINGS: The cardiac, hilar, and mediastinal contours are normal. There are low lung volumes bilaterally. There is a small layering left pleural effusion. There is left linear basilar opacities/mild consolidation. The right lung is clear. No perceptible pneumothorax. No right effusion. There is no focal osseous or soft tissue abnormality. XR/XR chest 2V IMPRESSION: 1. Small layering left effusion with left basilar parenchymal opacity. Cannot exclude pneumonia. 2. The right lung appears clear. Electronically signed by: Sherif Chow MD 04/16/2025 10:26 AM EDT
== END 2025-04-16 07:00 | disposition home or self-care (01) ==
LOC: HO.CT 06:59
PROVIDERS: PCP Internal Medicine; Visit Provider Nurse Practitioner Family
DX: R06.02 Shortness of breath (principal); R06.01 Orthopnea; J90 Pleural effusion, not elsewhere classified
CPT/HCPCS: 71046

== ENCOUNTER 2025-04-16 09:37 | Outpatient (REF) | payer OTHER, SELFPAY ==
--- OUTSIDE RECORDS SUMMARY | 2025-04-16 10:30 | XMS_ITS | Data Portability ---
Author Organization [place] - [facility],, ZOEY CARDOZA MD Address [address] [address] Care Team Providers Care Pelt Inspector Name Role Phone LUISA BROWN Primary Care Provider Assessment No assessment recorded. Plan of Treatment [...] Go To The Location Of Their Choice, [id number] 04/19/2024 10:16:19 hemoglo bin, gastroi ntestin al, stool 2023 024 [email or web address] 1 In-Office Order, Internal Use Only DO Not Attach Compendium DO Not Attach Compendium, Do Not Delete/merge, [id number] 04/14/2024 08:34:46 pap test, thinpre p, cervica l 2022 023 [email or web address] [facility] (Centralized Electronic Ordering - All Locations), Patient Can Go To The Location Of Their Choice, [id number] 04/30/2023 07:38:09 fecal occult blood, stool 2022 023 [email or web address] 1 In-Office Order, Internal Use Only DO Not Attach Compendium DO Not Attach Compendium, Do Not Delete/merge, [id number] 04/09/2023 09:35:31 pap test, thinpre p, cervica l 2021 022 [email or web address] [facility], Cytopathology Service, [address] [place] [address], [address], 04/24/2022 07:31:22 fecal occult blood, stool 2021 022 [email or web address] 1 In-Office Order, Internal Use Only DO Not Attach Compendium DO Not Attach Compendium, Do Not Delete/merge, [id number] 04/10/2022 09:49:53 pap test, thinpre p, cervica l 2020 021 [email or web address] [facility], Cytopathology Service, [address] [place] [address], [address], 04/10/2021 07:39:59 fecal occult blood, stool 2020 021 JULIETTE In-Office Order, Internal Use Only DO Not Attach Compendium DO Not Attach Compendium, Do Not Delete/merge, [id number] 03/27/2021 11:59:50 pap test, thinpre p, cervica l 2019 020 [facility], Cytopathology Service, [address] [place] [address], [address], 03/29/2020 07:35:07 fecal occult blood, stool 2019 020 verona In-Office Order, Internal Use Only DO Not Attach Compendium DO Not Attach Compendium, Do Not Delete/merge, [id number] 03/29/2020 07:35:07 Referral None recorde d. Procedures None recorde d. Surgeries None recorde d. Imaging MAMMO, screeni ng, digital , bilater al - Breast Aspirat ion and/or Biopsy if needed 2023 024 [facility], [address], [address], [place], [address], 09/29/2024 12:05:02 MAMMO, screeni ng, digital , bilater al - Breast Aspirat ion and/or Biopsy if needed 2022 023 [facility], [address], [place], [address], 09/24/2023 07:55:01 MAMMO, screeni ng, digital , bilater al 2021 022 [facility] Orders, [address], [address], [place], [address], 08/07/2022 08:36:51 MAMMO, screeni ng, digital , bilater al 2020 021 [facility] Imaging Orders, [address], [address], [place], [address], 08/01/2021 08:34:48 bone density 2020 021 [facility]), [address], [place], [address], 03/22/2023 07:37:42 MAMMO, screeni ng, digital , bilater al 2019 020 [facility] Orders, [address], [address], [place], [address], 07/26/2020 08:03:30 Medication Orders None recorde d. Patient TargetsNo targets recorded. Patient Instructions Encounter Date Encounter Id Patient Instructions Last Modified By Organization Details Last Modified Time 03/22/2020 [id number] She is here for annual exam, is [...] questions answered. Not available 03/22/2020 08:56:13 03/27/2021 [id number] advance benefici oniel notice information Not available [...] the breast. Not available 03/27/2021 09:46:41 04/10/2022 [id number] learning about healthy weight Not available 04/10/2022 09:49:53 She is here for annual exam, is doing well. She has a past history of left lumpectomy and RTx for breast cancer. Her is in [facility] dementia paredes now, he is happy there. [...] the breast. Not available 04/10/2022 09:50:38 04/09/2023 [id number] learning about healthy weight Not available 04/09/2023 09:35:32 She is here for annual, doing well. Her is in the [facility], he does not know who she is anymore, but he is well taken care of. She has another friend there, also, who she can spend time with. note from 2021: She is here for annual exam, is doing well. She has a past history of left lumpectomy and RTx for breast cancer. Her is in [facility] dementia paredes now, he is happy there. She appears to be doing well. Monthly self breast exam was taught, and stressed, and is advised to call if she discovers any new mass in the breast. Not available 04/09/2023 09:38:05 04/14/2024 [id number] learning about healthy weight glenn Not available 04/14/2024 08:34:46 She is here for annual, past histroy breast cancer, doing well. Her is still in the dementia unit at the [facility]. She has a boyfriend, he lives at the [facility] as well, he had a brain aneurysm and stroke and is paralysed on the right side of his body, but he can walk a bit with a cane and use wheelchair. They are going to go to [place] for a few days. Note from 2022: She is here for annual, doing well. Her is in the [facility], he does not know who she is anymore, but he is well taken care of. She has another friend there, also, who she can spend time with. note from 2021: She is here for annual exam, is doing well. She has a past history of left lumpectomy and RTx for breast cancer. Her is in [facility] dementia paredes now, he is happy there. [...] DO Not Attach Compendium, Do Not Delete/merge, [id number] 03/22/2020 08:18:21 03/22/20 20 03/22/2020 pap, LB [id number] ThinP rep Pap, Image d: NEGAT WENDY [...] neg, z77.9 , z91.8 9 Not Available [facility], Cytopathology Service [address] [place], [address], 03/27/2020 12:41:30 03/27/20 21 03/27/2021 pap test, thinp rep, cervi stephanie [id number] ThinP rep Pap, Image d: NEGAT WENDY [...] H/O BR CA [R87. 619] Not Available [facility], Cytopathology Service [address] [place], [address], 04/09/2021 07:26:45 03/27/20 21 03/27/2021 fecal occul t blood , stool Occult Blood negati ve Not Available In-Office Order Internal Use Only DO Not Attach Compendium DO Not Attach Compendium, Do Not Delete/merge, [id number] 03/27/2021 11:01:51 04/10/20 22 04/10/2022 PAP1C ASE [id number] ThinP rep Pap, Image d: NEGAT WENDY [...] . lps neg. [Z12. 4] Not Available [facility], Cytopathology Service [address] [place], [address], 04/20/2022 07:55:48 04/10/20 22 04/10/2022 fecal occul t blood , stool Occult Blood negati ve Not Available In-Office Order Internal Use Only DO Not Attach Compendium DO Not Attach Compendium, Do Not Delete/merge, [id number] 04/10/2022 08:09:01 04/09/20 23 04/09/2023 [facility] [place] Patie nt Name: YVONNE TRAN nt : [birth year] (Age: 72) Lab Acces natalia #: [id number] Colle ction Date: 023 Acces natalia Date: 2022 Sign Out Date: 2022 Tissu e Sourc e: 1: THINP REP [facility] ADMINISTRATOR PAP TEST, CERVI STEPHANIE: Final Diagn osis: [...] barker or eliel hardy Perfo rmed at [facility] ate Refer ence Labor atory depar tment of Cytol ogy, [address] [place] Clini stephanie Histo ry (othe r): LPS- 2-NEG Phone #: [phone], On-Ca ll Patho logis t: [id number] Not Available [facility] (Centralized Electronic Ordering - All Locations) Patient Can Go To The Location Of Their Choice, [id number] 04/29/2023 08:50:41 04/09/20 23 04/09/2023 fecal occul t blood , stool Occult Blood negati ve Not Available In-Office Order Internal Use Only DO Not Attach Compendium DO Not Attach Compendium, Do Not Delete/merge, [id number] 04/09/2023 09:07:36 04/14/20 24 04/19/2024 IGP, RFX APTIM A HPV ASCU diagnosis: Madhu NGUYEN FOR INTRA EPITH ELIAL GIULIANA Tsang OR BLAKE GERMAN . THIS SPECI MEN WAS RESCR EENED PART OF OUR QUALI TY CONTR OL PROGR AM. Not Available [facility] ([facility]) [address], [place], [address], 04/19/2024 10:16:19 04/14/20 24 04/19/2024 IGP, RFX APTIM A HPV ASCU specimen adequacy: Madhu lucia Satis facto elva for evalu ation . Endoc ervic al and/o r squam ous metap lasti c cells (endo cervi stephanie compo nent) are prese nt. Not Available [facility] ([facility]) [address], [place], [address], 04/19/2024 10:16:19 04/14/20 24 04/19/2024 IGP, RFX APTIM A HPV ASCU clinician provided ICD10: Madhu lucia Z01.4 19 Not Available [facility] ([facility]) [address], [place], [address], 04/19/2024 10:16:19 04/14/20 24 04/19/2024 IGP, RFX APTIM A HPV ASCU performed by: Madhu stevenson A Prior , Cytot echno logis t (ASCP ) Not Available [facility] ([facility]) [address], [place], [address], 04/19/2024 10:16:19 04/14/20 24 04/19/2024 IGP, RFX APTIM A HPV ASCU QC reviewed by: Madhu Khan sa J Genoveva y, Cytot echno logis t (ASCP ) Not Available [facility] ([facility]) [address] [place], [address], 04/19/2024 10:16:19 04/14/20 24 04/19/2024 IGP, RFX APTIM A HPV ASCU . . Not Available [facility] ([facility]) [address], [place], [address], 04/19/2024 10:16:19 04/14/20 24 04/19/2024 IGP, RFX [...] ts do occur . Not Available [facility] ([facility]) [address], [place], [address], 04/19/2024 10:16:19 04/14/20 24 04/19/2024 IGP, RFX APTIM A HPV ASCU test methodology: Madhu lucia This liqui d based ThinP rep(R ) pap test was scree yosi with the use of an image guide benito stevenson. Not Available [facility] ([facility]) [address], [place], [address], 04/19/2024 10:16:19 04/14/20 24 04/19/2024 IGP, RFX APTIM A HPV ASCU . Commen t The HPV DNA refle x crite zofia were not met with this speci men resul t there fore, no HPV testi ng was perfo rmed. Not Available [facility] ([facility]) [address], [place], [address], 04/19/2024 10:16:19 04/14/20 24 04/14/2024 hemog lobin , gastr ointe toy l, stool Occult Blood negati ve Not Available In-Office Order Internal Use Only DO Not Attach Compendium DO Not Attach Compendium, Do Not Delete/merge, [id number] 04/14/2024 08:11:42 07/26/20 20 07/26/2020 MAMMO , scree unique, digit al, bilat eral No observ ation record ed. [address] [facility] [address] [facility] [address], [place], [address], 07/26/2020 08:17:17 08/01/20 21 08/01/2021 MAMMO , scree unique, digit al, bilat eral No observ ation record ed. [address] [facility] Orders 100 [facility] [address], [place], [address], 08/01/2021 08:58:57 08/07/20 22 08/07/2022 MAMMO , scree unique, digit al, bilat eral No observ ation record ed. [address] [facility] [address] [facility] [place], [address], 08/07/2022 09:12:20 09/24/20 23 09/24/2023 MAMMO , scree unique, digit al, bilat eral No observ ation record ed. [address] [facility] [address] [facility] [place], [address], 09/27/2023 07:25:10 09/29/20 24 09/29/2024 MAMMO , scree unique, digit al, laura sanchez No observ ation record ed. [facility] [address] [place], [address], 10/02/2024 06:37:28 Result Notes None recorded. 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 Zoey Cardoza MD [address], [place], [address], [place] - [facility], 5 09:51:31 Breast lump 48827994 Active Zoey Cardoza MD [address], [place], 5, [place] - [facility], 5 09:51:31 Type 2 diabetes mellitus 34094745 Active 2018 Zoey Cardoza MD [address], [place], 5, [place] - [facility], 9 08:39:01 Abscess of vulva 17647165 Active 2018 Zoey Cardoza MD [address], [place], 5, [place] - [facility], 9 08:39:14 Vaccinatio n hesitancy by patient 717271710 Active 2020 Zoey Cardoza MD [address], [place], 5, [place] - [facility], 1 09:46:52 Problem Notes None recorded. Procedures Surgical History Date Name Laterality Status Provider Name and Address Organization Details Recorded Time 09/29/20 24 Most Recent Mammogram completed Terrie Moses [place] - [facility], 03/23/2025 07:51:40 03/10/20 19 I&D completed Zoey Cardoza MD [address], [place], [address], [place] - [facility], 03/10/2019 10:13:17 11/01/19 07 Breast Biopsy completed Terrie Josué [place] - [facility], 10/31/2014 08:06:59 Oophorectomy completed Zoey Cardoza MD [address], [place], [address], [place] - [facility], 10/27/2012 11:46:50 Imaging Results None recorded. [...] Updated DateTime 0 97.5 [degF] 78 /min 27001.3 5 g 36.3 kg/m2 147.32 cm 173 mm[Hg] 83 mm[Hg] Cee Swansonmichi Naidu [facility], 0 08:06:33 Date Recorded Body height Body mass index (BMI) Body weight Body temperature Provider Name and Address Organization Details Last Updated DateTime 03/27/2021 147.32 cm 35.3 kg/m2 44659.11 g 97.3 [degF] Shanique Prater in [facility], 03/27/2021 08:21:44 Date Recorded Body height Body mass index (BMI) Body weight Heart rate Systolic blood pressure Diastolic blood pressure Provider Name and Address Organization Details Last Updated DateTime 3 149.86 cm 31.9 kg/m2 87622.5 9 g 74 /min 155 mm[Hg] 82 mm[Hg] Shanique Naidu [facility], 3 09:08:04 Date Recorded Body height Body mass index (BMI) Body weight Body temperature Heart rate Systolic blood pressure Diastolic blood pressure Provider Name and Address Organization Details Last Updated DateTime 2 149.86 cm 34.1 kg/m2 30020.1 1 g 97.2 [degF] 65 /min 154 mm[Hg] 97 mm[Hg] Terrie Naidu [facility], 2 08:17:04 Date Recorded Body weight Body mass index (BMI) Body height Body temperature Heart rate Systolic blood pressure Diastolic blood pressure Provider Name and Address Organization Details Last Updated DateTime 4 08059.5 6 g 32.9 kg/m2 149.86 cm 97.3 [degF] 58 /min 177 mm[Hg] 62 mm[Hg] dino Naidu [facility], 4 08:14:57 Social History Question Answer Notes LastModified by Organizat ion Details LastModified Time Tobacco Smoking Status Never Smoker Not Available [employer] 09/03/2020 03:19:39 How Many Years Have You Consumed Alcohol? 50 Information not available 04/10/2022 What Is Your Level Of Caffeine Consumption? Heavy [id number] Information not available 09/03/2020 In The 14 [...] Type Of Diet Are You Following? REGULAR [id number] Information n ot available 09/03/2020 Which Illicit Or Recreational Drugs Have You Used? None [id number] Information not available 09/03/2020 Do You Reside In Or Have You Traveled To An Area Where Ebola Virus Transmission Is Active? No [id number] Information not available 09/03/2020 Education 12 Information no t available 10/27/2012 What Is The Highest Grade Or Level Of School You Have Completed Or The Highest Degree You Have Received? [id number] Information not available 04/10/2022 Who Is Your Employer? [employer] Information not available 04/10/2022 How Many Days [...] Of Your Most Recent Tobacco Screening? 04/14/2024 [email or web address] Information not available 04/14/2024 What Is Your Relationship Status? Information not available 04/10/2022 Are You Sexually Active? No Information not available 04/10/2022 How Much Tobacco Do You Smoke? No [id number] Information not available 09/03/2020 General Stress Level Medium Information not available 04/10/2022 How Many Years Have You Smoked Tobacco? 0 [id number] Information not available 09/03/2020 Have You Recently [...] used smokeless tobacco? Never used smokeless tobacco [id number] Information not available 09/03/2020 Are you currently employed? 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 Occasional [id number] Information not available 09/03/2020 Mental Status Question Answer Note LastModified by Organization D etails LastModified Time Do you feel stressed (tense, restless, nervous, or anxious, or unable to sleep at night)? [id number] Information not available 04/10/2022 Family History Nothing Reported Notes:Pt is Adopted Medical History Condition Response Anesthesia complications N High Blood Pressure N Depression N Lung Disease N Defects or Inherited Disease N History of Ovarian Cancer N BRCA testing in past N Anxiety Disorder N Arthritis N Infertility N Endometriosis N History of Cancer Y Kidney or Bladder Problems N Thyroid Problems [...] completed Terrie myrick [place] - [facility], 04/10/2022 08:19:16 Past Encounters Encounter ID Performer Location Encounter Start Date Encounter Closed Date Diagnosis/Indication Diagnosis SNOMED-CT Code Diagnosis ICD10 Code Diagnosis Note [id number] MD ZOEY Roman MD [address] [place] [address], [address] [place] [address] 10/27/2012 08:32:27 10/28/2012 08:36:54 [id number] MD ZOEY Roman MD [address] [place] [address],[address] [address] 10/30/2013 07:50:26 10/30/2013 09:46:06 Specialized medical examination 61814110 Screening for malignant neoplasm of rectum 429833886 Screening mammography 34316653 [id number] MD ZOEY Roman MD [address] [place] [address], [address] [place] [address] 10/31/2014 07:50:05 10/31/2014 08:46:34 Specialized medical examination 71568455 Screening for malignant neoplasm of rectum 484657728 Screening mammography 95178281 Breast lump 67944062 [id number] MD ZOEY Roman MD [address] [place] [address],[address] [address] 10/31/2015 07:48:30 10/31/2015 10:28:20 Specialized medical examination 65156125 Z01.419 Screening for malignant neoplasm of rectum 016172643 Z12.12 Screening mammography 24 267628 Z12.31 [id number] MD ZOEY Roman MD [address] [place] [address], [address] [place] [address] 03/12/2017 08:02:11 03/12/2017 10:15:43 Specialized medical examination 69025106 Z01.419 Screening for malignant neoplasm of rectum 133345282 Z12.12 Screening mammography 24 112979 Z12.31 [facility] 3499885 K29.70 Cares for self 573587178 Z76.89 [id number] MD ZOEY Roman MD [address] [place] [address],[address] [place] [address] 03/18/2018 08:08:14 03/18/2018 09:42:28 Specialized medical examination 65993972 Z01.419 Screening for malignant neoplasm of rectum 123904023 Z12.12 Screening mammography 24 123314 Z12.31 Cares for self 078336680 Z76.89 [id number] MD ZOEY Roman MD [address] [place] [address],[address] [place] [address] 03/09/2019 10:24:10 03/09/2019 12:51:52 Abscess of vulva 43370385 N76.4 [id number] MD ZOEY Roman MD [address] [place] [address], [address] [place] [address] 03/10/2019 07:57:31 03/10/2019 12:06:51 Abscess of vulva 95629839 N76.4 [id number] MD ZOEY Roman MD [address] [place] [address], [address] [address] 03/13/2019 08:11:27 03/13/2019 10:10:45 Type 2 diabetes mellitus without complication 587440218 E11.9 Abscess of vulva 0411722 1 N76.4 [id number] MD ZOEY Roman MD [address] [place] [address], [place] [address] 03/20/2019 13:21:20 03/20/2019 14:02:55 Specialized medical examination 98977070 Z01.419 Screening for malignant neoplasm of rectum 819135786 Z12.12 Screening mammography 24 488011 Z12.31 [id number] MD ZOEY Roman MD [address] [place] [address], [place] [address] 03/22/2020 07:58:01 03/22/2020 09:28:07 Specialized medical examination 51796940 Z01.419 Screening for malignant neoplasm of rectum 790452554 Z12.12 Screening mammography 24 986974 Z12.31 [id number] MD ZOEY Roman MD [address] [place] [address], [address] [place] [address] 03/27/2021 08:17:33 03/27/2021 10:42:25 Screening mammography 53987018 Z12.31 Advance care planning 71 2199600 Z71.89 Screening for osteoporosis 027865580 Z13.820 Type 2 mary lou betes mellitus 50477719 E11.8 Specialize d medical examination 69517252 Z01.419 Screening for malignant neoplasm of rectum 621915929 Z12.12 [id number] MD ZOEY Roman MD [address] [place] [address],[facility] [address] [place] [address] 04/10/2022 08:04:11 04/10/2022 10:46:08 Specialized medical examination 97305605 Z01.419 Screening for malignant neoplasm of rectum 310474715 Z12.12 Screening mammography 24 723305 Z12.31 [id number] MD ZOEY Roman MD [address] [place], [place] [address] [address] [place] [address] 04/09/2023 08:51:45 04/09/2023 10:11:10 Specialized medical examination 18986811 Z01.419 Screening for malignant neoplasm of rectum 224416086 Z12.12 Screening mammography 24 014785 Z12.31 [id number] MD ZOEY Roman MD [address] [place], [place] [address] [address] [place] [address] 04/14/2024 08:09:09 04/14/2024 11:44:47 Specialized medical examination 94250511 Z01.419 Screening for malignant neoplasm of rectum 082162702 Z12.12 Screening mammography 24 725375 Z12.31 Health Concerns Section Related Observation LastModified by Organization Detai ls LastModified Time None Recorded Concern Status LastModified by Organization Details LastModified Time None Recorded Advance Directives Directive None Recorded Payers Insurance Date Sequence Insurance Name Policy Number Policy Saunders Covered Member ID Saunders Member ID Guarantor Name 04/03/2025 1 [employer] - TRS [facility] [id number] Yvonne Parks [id number] Yvonne Parks Notes Date Note Type [...] MD [address], [place], [address], [employer] - [facility], 03/22/2020 08:56:35 03/27/2021 text/html She is here for annual exam, is doing well. She has a past history of left lumpectomy and RTx for breast cancer. Zoey Cardoza MD [address], [place], [address], [employer] - [facility], 03/27/2021 11:14:18 04/10/2022 text/html She is here for annual exam, is doing well. She has a past history of left lumpectomy and RTx for breast cancer. Zoey Cardoza MD [address], [place], [address], [employer] - [facility], 04/10/2022 09:50:58 04/09/2023 text/html She is here for annual, doing well. Her is in the [facility], he does not know who she is anymore, but he is well taken care of. She has another friend there, also, who she can spend time with. note from 2021: She is here for annual exam, is doing well. She has a past history of left lumpectomy and RTx for breast cancer.Her is in [facility] dementia paredes now, he is happy there. Zoey Cardoza MD 200 [facility],[address], [place], [address], [place] - [facility], 04/09/2023 09:38:33 04/14/2024 text/html She is here for annual, past histroy breast cancer, doing well. Her is still in the dementia unit at the [facility]. She has a boyfriend, he lives at the [facility] as well, he had a brain aneurysm and stroke and is paralysed on the right side of his body, but he can walk a bit with a cane and use wheelchair. They are going to go to [place] for a few days. __ Note from 2022: She is here for annual, doing well. Her is in the [facility], he does not know who she is anymore, but he is well taken care of. She has another friend there, also, who she can spend time with. note from 2021: She is here for annual exam, is doing well. She has a past history of left lumpectomy and RTx for breast cancer.Her is in [facility] dementia paredes now, he is happy there. Zoey Cardoza MD [address] [facility],[address], [place], [id number], [place] - Associates in [facility], 04/14/2024 08:39:07 OBGyn Episode No OBEpisode recorded.
== END 2025-04-16 09:38 | disposition home or self-care (01) ==
LOC: HO.XRAY 09:37
PROVIDERS: Visit Provider Nurse Practitioner Family
DX: Z13.89 Encounter for screening for other disorder (principal)

== ENCOUNTER → 2025-04-16 09:47 | Outpatient (BNV) | payer OTHER, SELFPAY | PROVIDERS: PCP Internal Medicine; Visit Provider Radiology Diagnostic Radiology | DX: J90 Pleural effusion, not elsewhere classified (principal); J84.9 Interstitial pulmonary disease, unspecified | CPT/HCPCS: 71046 ==

== ENCOUNTER 2025-04-26 08:13 | Outpatient (REF) | payer OTHER, SELFPAY ==
--- NOTE | ~2025-04-26 | XR_ITS ---
EXAMINATION: XR CHEST 2 VIEWS HISTORY: R06.01 - Orthopnea COMPARISON: Comparison is made with the prior examination dated 04/16/2025. FINDINGS: PA and lateral views of the chest are submitted. There are low lung volumes. There are tiny bilateral pleural effusions. The lungs are clear. There is no pneumothorax or pulmonary vascular congestion. The heart is normal in size. The aorta is tortuous. There is degenerative disc disease of the spine. XR/XR chest 2V IMPRESSION: Low lung volumes. Tiny bilateral pleural effusions. Electronically signed by: Ron Olson MD 04/26/2025 09:41 AM EDT
[2025-04-26 09:06] LABS: MANUAL DIFF FLAG NO
[2025-04-26 09:16] LABS: Basophils Percent Auto 0.3 % (0-2); Eosinophils Absolute Auto 0.1 X10*3/uL (0.0-0.4); Hematocrit 34.2 % (37.0-47.0); Hemoglobin 10.8 g/dl (12.0-16.0); Imm Gran Abs Auto 0.03 X10*3/uL (0.00-0.03); Imm Gran Pct Auto 0.5 % (0.0-0.4); Lymphocytes Absolute Auto 1.8 X10*3/uL (1.2-4.9); Lymphocytes Percent Auto 27.5 % (20-40); Mean Corpuscular HGB Conc 31.6 g/dl (31.0-35.0); Mean Corpuscular Hemoglobin 25.3 pg (27.0-33.0); Mean Corpuscular Volume 80.1 fL (80.0-98.0); Mean Platelet Volume 9.3 fL (9.4-12.3); Monocytes Absolute Auto 0.7 X10*3/uL (0.1-1.2); Monocytes Percent Auto 11.3 % (2-11); Neutrophils Absolute Auto 3.8 x10*3/uL (2.0-8.3); Neutrophils Percent Auto 58.4 % (45-73); Platelet Count 178 X10*3/uL (160-400); Red Blood Count 4.27 X10*6/uL (4.20-5.50); White Blood Count 6.4 X10*3/uL (4.8-10.8)
[2025-04-26 09:35] LABS: B Type Natriuretic Peptide 35 pg/mL (<100)
[2025-04-26 09:36] LABS: Alanine Aminotransferase 14 U/L (0-31); Albumin Level 4.2 g/dL (3.5-5.0); Alkaline Phosphatase 52 U/L (39-117); Anion Gap 9 (12-20); Aspartate Amino Transferase 12 U/L (5-31); Bilirubin Total 0.3 mg/dL (0.0-1.0); Blood Urea Nitrogen 27 mg/dL (9-16); Calcium 9.4 mg/dL (8.4-10.2); Carbon Dioxide 31 mmol/L (22-29); Chloride 103 mmol/L (96-108); Estimated Glomerular Filt Rate 50; Potassium 4.4 mmol/L (3.3-5.1); Sodium 139 mmol/L (135-145); Total Protein 6.6 g/dL (6.5-8.0)
[2025-04-26 09:39] LABS: Glucose Random 55 mg/dL (60-115)
== END 2025-04-26 08:14 | disposition home or self-care (01) ==
LOC: HO.XRAY 08:13
PROVIDERS: PCP Internal Medicine; Visit Provider Nurse Practitioner Family
DX: R06.02 Shortness of breath (principal); R06.01 Orthopnea
CPT/HCPCS: 36415; 71046; 80053; 83880; 85025

== ENCOUNTER 2025-04-26 08:13 | Outpatient (AMB) | payer OTHER, SELFPAY ==
--- OUTSIDE RECORDS SUMMARY | 2025-04-22 23:59 | XMS_ITS | Continuity of Care Document ---
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 Primary Care Physician [id number] Date(s): 03/23/25 - 04/22/[address] [address]- Encounter Type: Triage Allergies, Adverse Reactions, Alerts No Known Allergies Immunizations Given and Recorded Vaccine Date Status Refusal Reason zoster vaccine, inactivated 04/09/21 Recorded zoster vaccine, inactivated 01/16/21 Recorded SARS-CoV-2 (COVID-19) Ad26 vaccine 12/30/20 Record ed tetanus/diphtheria/pertussis, acel(Tdap) 02/23/11 Recorded tetanus-diphtheria toxoids (Td) 08/01/98 Recorded Medications ferrous sulfate 324 mg (65 mg elemental iron) oral delayed release tablet 1 tablet = 324 mg, By Mouth, 2 times a day, 0 Refills, Maintenance, 03/19/25 2:18:00 PM EDT, Partialfill upon patient request if the prescription is for a schedule II opioid drug. Start Date: 03/19/25 Status: Ordered Repeat number: 1 Freestyle Lite Lancets See Instructions, # 100 each, Refills 5, Tot. Refills 5, Maintenance, test bs daily and as needed for symptoms dx E11.9, 05/08/19 2:56:21 PM EDT, Compound Start Date: 05/08/19 Status: Ordered Quantity: 100.0 Unit: each Repeat number: 6 Freestyle Lite Monitor See Instructions, # 100 each, Refills 0, Tot. Refills 0, Maintenance, test bs daily and as needed for symptoms dx E11.9, 05/08/19 2:56:21 PM EDT, Compound Start Date: 05/08/19 Status: Ordered Quantity: 100.0 Unit: each Repeat number: 1 Freestyle Lite Test Strips See Instructions, # 100 each, Refills 5, Tot. Refills 5, Maintenance, test bs daily and as needed for symptoms dx E11.9, 05/08/19 2:56:21 PM EDT, Compound Start Date: 05/08/19 Status: Ordered Quantity: 100.0 Unit: each Repeat number: 6 furosemide 40 mg oral tablet Refills 0, Maintenance, 03/19/25 2:17:00 PM EDT, Partial fill upon patient request if the prescription is for a schedule II opioid drug. Start Date: 03/19/25 Status: Ordered Repeat number: 1 glipiZIDE 5 mg oral tablet 1, tablet, By Mouth, Daily, # 90 tablet, Refills 1, Maintenance, 04/13/25 10:09:00 AM EDT, Route to Pharmacy Electronically, [facility], 150.5, cm, 03/19/25 14:20:00 EDT, Height Start Date: 04/13/25 Status: Ordered Quantity: 90.0 Unit: tablet Repeat number: 1 Jardiance 10 mg oral tablet 0 Refills, Maintenance, 03/19/25 2:17:00 PM EDT, Partial fill upon patient request if the prescription is for a schedule II opioid drug. Start Date: 03/19/25 Status: Ordered Repeat number: 1 losartan 100 mg oral tablet 1 tablet = 100 mg, By Mouth, Daily, # 90 tablet, 1 Refills, Maintenance, 03/19/25 2:23:00 PM EDT, [facility], Partial fill upon patient request if the prescription is for a schedule II opioid drug., 150.5, cm, 03/19/25 14:20:00 EDT, Height Start Date: 03/19/25 Stop Date: 09/15/25 Status: Ordered Quantity: 90.0 Unit: tablet Repeat number: 2 metFORMIN 1000 mg oral tablet 1 tablet, By Mouth, 2 times a day, # 180 tablet, 3 Refills, Maintenance, 03/16/24 3:33:00 PM EDT, [facility], 150.5, cm, 03/16/24 15:14:00 EDT, Height Start Date: 03/16/24 Status: Ordered Quantity: 180.0 Unit: tablet Repeat number: 4 omeprazole 20 mg oral enteric coated capsule 1 capsule, By Mouth, Daily, # 90 capsule, 1 Refills, Maintenance, 11/15/24 3:03:00 PM EST, [facility], 150.5, cm, 03/16/24 15:39:00 EDT, Height Start Date: 11/15/24 Status: Ordered Quantity: 90.0 Unit: capsule Repeat number: 2 simvastatin 40 mg oral tablet 1, tablet, By Mouth, Daily at bedtime, # 90 tablet, Refills 1, Maintenance, 02/27/25 9:49:00 AM EDT,Route to Pharmacy Electronically, [facility], 150.5, cm, 03/16/24 15:39:00 EDT,Height Start Date: 02/27/25 Status: Ordered Quantity: 90.0 Unit: tablet Repeat number: 1 spironolactone 25 mg oral tablet Refills 0, Maintenance, 03/19/25 2:17:00 PM EDT, Partial fill upon patient request if the prescription is for a schedule II opioid drug. Start Date: 03/19/25 Status: Ordered Repeat number: 1 Vitamin E By Mouth, 0 Refills, Maintenance, 03/19/25 2:17:00 PM EDT, Partial fill upon patient request if the prescription is for a schedule II opioid drug. Start Date: 03/19/25 Status: Ordered Repeat number: 1 Problem List Condition Confirmation Course Effective Dates Status Health St atus Informant Diabetes mellitus Confirmed Active Gastritis Confirmed Active Hyperlipidemia Confirmed Active Hypertension Confirmed Active Breast cancer Confirmed Active Obese class I Confirmed Active Obesity Confirmed Active Social History Social History Type Response Smoking Status Never (less than 100 in lifetime) entered on: 12/08/19 Sex Sex Representation Female (finding) Patient Care team information Care Team Personnel Name: Jeff Palacios MD Position: [facility] Physician - Primary Care Member Role: PCP [facility] [address] [place] [address]- Telecom: Care Team Related Persons Name: MATT JOHNSON Name: MADALYN JOHNSON Name: TERESA JOHNSON Insurance Providers Guarantor name: YVONEN SANCHESVIDHI [facility] Plan Information #: 1 Payer: [employer] Payer Identifier: NA Member Number: [id number] Group Number: [id number] Subscriber Identifier: [id number] Relationship to Subscriber: self Coverage Type: Commercial Managed Care - HMO Coverage Verification Date: NA Telecom: NA Address:
[2025-04-26 08:17] VITALS: BP 138/72; PULSE 88; BMI 30.7
--- NOTE | 2025-04-26 08:17 | A.OFFVIS_ITS ---
Vital Signs 04/26/25 08:17 Height 5 ft Weight 157 lb 6.561 oz BMI 30.7 BP 138/72 Blood Pressure Location Lt brachial Position Sitting Pulse 88 Pulse Source Pulse Oximeter Intake Visit Reasons: 2 week follow up Allergies No Known Allergies Allergy (Verified 04/26/25 08:21) Medication List - Last Reconciled 04/26/25 by Saloni Shaw, ENGINEERING VICE PRESIDENT-C empagliflozin (Jardiance) 10 mg PO DAILY ferrous sulfate (iron) 325 mg PO DAILY furosemide (Lasix) 20 mg PO DAILY glipizide 5 mg PO DAILY losartan 50 mg PO DAILY metformin 1,000 mg PO BID omeprazole 20 mg PO DAILY@0630 simvastatin 40 mg PO BEDTIME spironolactone 25 mg PO DAILY vitamin E 268 mg PO DAILY HPI HPI 2 week follow up: Details: Yanna is a 74-year-old female presenting for follow-up of her shortness of breath and orthopnea. Recent chest x-ray showed findings suggesting pneumonia and she was started on appropriate antibiotics. At this time she continues to have symptoms with only slight improvement. She tells me she will still not be able to perform CAT scan. When she lays down she notices a heaviness in her chest and difficulty breathing making her set up. She is also short of breath with ambulation and even sitting talking with me today. She has no other symptoms. She denies fever, chills, cough. She did have recent hospitalization for her shortness of breath and was treated for new-onset CHF and hypertensive heart disease. Chest x-ray at that time showed a left-sided atelectasis with small pleural effusion. She was put on appropriate med management including spironolactone, Jardiance and Lasix. On follow-up she was euvolemic and continue to have the shortness of breath and orthopnea as above. It was at that time that the repeat chest x-ray was done showing findings suggesting pneumonia. She tells me she did not have any issues with shortness of breath prior to having an episode of cellulitis in early March. He has no prior known cardiac history. She has a history of hypertension, diabetes, hyperlipidemia. [facility] Medical History Surgical ciliated cyst Congestive cardiac failure HLD (hyperlipidemia) Hypertension Diabetes type 2 Family History Father No problems noted. Mother No problems noted. Social History (Reviewed 04/26/25 @ 09: by EDUARDO Villagomez) Household Members: None Housing: House Do you presently have visiting nurse or other home services: No Patient Tobacco Use Status: Never used Tobacco Second Hand Smoke Exposure: No service: No Review of Systems Const All systems reviewed & are unremarkable except as noted in HPI and below ENT Denies dizziness Card Denies chest pain, Denies chest pain at rest, Denies chest pain with activity, Denies rapid heart rate, Denies pedal edema, Denies edema, Denies leg edema, Denies lightheadedness, Denies palpitations, Reports dyspnea, Reports dyspnea on exertion and Reports orthopnea Resp Denies cough, Reports dyspnea and Reports dyspnea on exertion GI Denies hematochezia and Denies change in stool character Musc Denies abnormal gait, Denies limited range of motion, Denies muscle cramps, Denies muscle weakness, Denies numbness, Denies radiating pain into limb, Denies stiffness and Denies tingling Neuro Denies abnormal gait, Denies dizziness, Denies numbness and Denies tingling Endo Denies palpitations Physical Exam Vital Signs: Last Vital Signs Pulse 88 04/26/25 08:17 BP 138/72 04/26/25 08:17 BMI result Body Mass Index 30.7 Const General: cooperative, healthy appearing and no acute distress Orientation/consciousness: patient oriented x3 Neck Neck: Yes normal visual inspection Resp Auscultation: clear to auscultation bilaterally, rales (left base), no rhonchi and no wheezes Cardio Jugular venous distension: no JVD Rate: regular rate Rhythm: regular rhythm Heart sounds: S1 normal heart sound present, S2 normal heart sound present, no gallops, no murmurs and no rubs Neuro General: patient oriented x3 Extrem Other: trace ankle edema General: Yes normal to inspection, No no pedal edema and No calf tenderness Psych Appearance: grossly normal Mental Status: mental status grossly normal Speech and movement: Normal speech and movement present Assessment & Plan Assessment & Plan (1) Shortness of breath: Code(s): R06.02 - Shortness of breath Category: Medical Plan: She still Reports of ongoing shortness of breath, orthopnea since her hospital discharge for new Congestive heart failure. She has been compliant with her Lasix, Aldactone and Jardiance. Echocardiogram 03/11/2025 shows EF 60-65%, [id number] LVH. Following last visit an x-ray was done showing findings suggesting left based pneumonia. BNP 16. This case was reviewed with Dr. Dominique from pulmonology. She was put on a course of Augmentin and doxycycline. Today she is still reporting shortness of breath and orthopnea. She states mid very minimal improvement with the antibiotic use. No other symptoms. She does not appear fluid overloaded on exam. A repeat chest x-ray today shows low lung volumes, tiny bilateral effusions. BNP 35. Again she does not appear to be having decompensated heart failure. She continues on her Lasix, spironolactone and Jardiance. At this time will refer her to pulmonology for evaluation. She is agreeable to this plan. Signs and symptoms of heart failure reviewed with her. Instructed on ER evaluation if her condition worsens. (2) Congestive cardiac failure: Code(s): I50.9 - Heart failure, unspecified Category: Medical Qualifiers: Heart failure chronicity: unspecified Heart failure type: unspecified Qualified Code(s): I50.9 - Heart failure, unspecified Plan: Recent [facility] [place] with new onset diastolic Congestive heart failure. She was diuresed and sent home with Lasix, Aldactone and Jardiance. (3) Abnormal EKG: Code(s): R94.31 - Abnormal electrocardiogram [ECG] [EKG] Category: Medical Plan: EKG done last visit showed junctional beats, with sinus beats. She underwent Holter monitor on 04/13/2025 for 3 days shows sinus rhythm with average heart rate 82, supraventricular ectopy 2%, rare ventricular ectopy, brief junctional rhythm during sleep hour. No report of heart palpitations or lightheadedness. (4) Hospital discharge follow-up: Code(s): Z09 - Encounter for follow-up examination after completed treatment for conditions other than malignant neoplasm Category: Medical Plan: Reviewed (5) Orthopnea: Code(s): R06.01 - Orthopnea Category: Medical Plan: As above Plan Time spent on chart review, documentation, interview and assessment Orders: Orders Complete Blood Count Auto Diff 04/26/25 R06.01 - Orthopnea, R06.02 - Shortness of breath XR chest 2V 04/26/25 R06.01 - Orthopnea, R06.02 - Shortness of breath Comprehensive Met. Panel 04/26/25 R06.01 - Orthopnea, R06.02 - Shortness of donato ath B Type Natriuretic Peptide 04/26/25 R06.01 - Orthopnea, R06.02 - Shortness of breath Coding Level of Care Code Est Pt Level 4 (29671) Complex EM visit Add On G2211 Diagnoses Shortness of breath R06.02 Congestive heart failure, unspecified HF chronicity, unspecified heart failure type I50.9 Heart failure chronicity: unspecified Heart failure type: unspecified Abnormal EKG R94.31 Hospital discharge follow-up Z09 Orthopnea R06.01 Time Spent (min) 32
== END 2025-04-26 08:41 | disposition home or self-care (01) ==
LOC: HO.HCS 08:14
PROVIDERS: PCP Internal Medicine; Visit Provider Nurse Practitioner Family
DX: R06.02 Shortness of breath (principal); I50.9 Heart failure, unspecified; R94.31 Abnormal electrocardiogram [ECG] [EKG]; Z09 Encounter for follow-up examination after completed treatment for conditions other than malignant neoplasm; R06.01 Orthopnea
CPT/HCPCS: 99214; G2211

== ENCOUNTER → 2025-04-26 09:07 | Outpatient (BNV) | payer OTHER, SELFPAY | PROVIDERS: PCP Internal Medicine; Visit Provider Radiology Diagnostic Radiology | DX: J90 Pleural effusion, not elsewhere classified (principal); R91.8 Other nonspecific abnormal finding of lung field | CPT/HCPCS: 71046 ==

== ENCOUNTER 2025-07-19 10:07 | Outpatient (AMB) | payer OTHER, SELFPAY ==
[2025-07-19 10:46] VITALS: BP 124/70; PULSE 90; O2SAT 97; BMI 29.3
--- NOTE | 2025-07-19 10:46 | A.OFFVIS_ITS ---
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 The patient is a 74 year woman with known history of cardiomyopathy who presents with worsening shortness of breath. The patient states that for the last several months she has been having hard time laying down she because she gets significant short of breath. In the beginning she did have a CT scan of the chest which I personally reviewed demonstrating some airspace disease and what appeared to be a loculated pleural effusion. But ever since then it has been hard for her to get another CAT scan because she can not lay down. Previous x-rays have demonstrated the persistent opacity in the left hemithorax. The patient has tried multiple antibiotics also tried multiple diuretics without any significant improvement. Therefore today she was sent for referral. We did go for brief walking oximetry. The patient did desaturate when she laid flat down to about 85%. She became very short of breath and then after minute she did recover. We did ambulate and will during the ambulation she also desaturated down to 88%. She was placed on 2 L and she was able to maintain a pulse ox was 94%. Therefore, will start her on oxygen with activity and also sleep. Hopefully she can lay down a little bit. She was not able to lay down completely once she was placed on the oxygen. The patient will have blood work done. In addition to that she will need additional imaging studies and ideally a repeat CAT scan. The patient definitely has evidence of orthopnea she also has significant lower extremity edema. She is currently on Jardiance and Aldactone. Will give her additional Lasix values for the next 3 days. REPLACED BY [facility] Medical History (Updated 07/19/25 @ 21:24 by Hardeep Dominique MD) Congestive cardiac failure Dyspnea Surgical ciliated cyst HLD (hyperlipidemia) Hypertension Diabetes type 2 Family History Father No problems noted. Mother No problems noted. Social History Household Members: None Housing: House Do you presently have visiting nurse or other home services: No Patient Tobacco Use Status: Never used Tobacco Second Hand Smoke Exposure: No service: No Review of Systems Const All systems reviewed & are unremarkable except as noted in HPI and below ENT Denies dizziness Card Denies chest pain, Denies chest pain at rest, Denies chest pain with activity, Denies rapid heart rate, Denies pedal edema, Denies edema, Denies leg edema, Denies lightheadedness, Denies palpitations, Reports dyspnea, Reports dyspnea on exertion and Reports orthopnea Resp Denies cough, Reports dyspnea and Reports dyspnea on exertion GI Denies hematochezia and Denies change in stool character Musc Denies abnormal gait, Denies limited range of motion, Denies muscle cramps, Denies muscle weakness, Denies numbness, Denies radiating pain into limb, Denies stiffness and Denies tingling Neuro Denies abnormal gait, Denies dizziness, Denies numbness and Denies tingling Endo Denies palpitations Physical Exam Vital Signs: Last Vital Signs Pulse 90 07/19/25 10:46 BP 124/70 07/19/25 10:46 Pulse Ox 97 07/19/25 10:46 Oxygen Delivery Method Room Air 07/19/25 10:46 BMI result Body Mass Index 29.3 Const General: cooperative, healthy appearing and no acute distress Orientation/consciousness: patient oriented x3 Neck Neck: Yes normal visual inspection Resp Effort & Inspection: normal respiratory effort Auscultation: rales (left base), no rhonchi, no wheezes and diminished lung sounds Cardio Rate: regular rate Rhythm: regular rhythm Heart sounds: S1 normal heart sound present, S2 normal heart sound present and Gallop heart sound present GI Palpation (GI): Soft to palpation Neuro General: patient oriented x3 Extrem Other: trace ankle edema General: Yes normal to inspection, No no pedal edema and No calf tenderness Psych Appearance: grossly normal Mental Status: mental status grossly normal Speech and movement: Normal speech and movement present Office Procedures 6 Minute Walk Time:: 21:22 SPO2 % at rest: 96 Pulse at rest: 87 SPO2 % during excercise: 86 Pulse during excercise: 110 Distance in yards walked: 200 Velvet Score: 8 Supplemental Oxygen: desaturated when lying flat on RA to 85%, then ambulated on RA and desaturated to 88%. PLaced on 2L cont and improved POx to 95%. Should use O2 with activity and sleep [id number] - 6 Minute Walk Assessment & Plan Assessment & Plan (1) Pleural effusion: Code(s): J90 - Pleural effusion, not elsewhere classified Category: Medical (2) Orthopnea: Code(s): R06.01 - Orthopnea Category: Medical (3) Dyspnea: Code(s): R06.00 - Dyspnea, unspecified Category: Medical Qualifiers: Dyspnea type: shortness of breath Qualified Code(s): R06.02 - Shortness of breath (4) Congestive cardiac failure: Code(s): I50.9 - Heart failure, unspecified Category: Medical Qualifiers: Heart failure chronicity: unspecified Heart failure type: unspecified Qualified Code(s): I50.9 - Heart failure, unspecified Plan Lasix x 3 days start Oxygen with activity and sleep Bloodwork consider Bubble study Need to repeat CT chest/neck, once she is able to lay flat consider bronchoscopy to assess for tracheomalecia PFTs F/U 2-3 months Orders: Orders B Type Natriuretic Peptide Today J90 - Pleural effusion, not elsewhere classified, R06.01 - Orthopnea Venous Blood Gas Today J90 - Pleural effusion, not elsewhere classified, R06.01 - Orthopnea Erythrocyte Sedimentation Rate Today J90 - Pleural effusion, not elsewhere classified, R06.01 - Orthopnea Complete Blood Count Auto Diff Today J90 - Pleural effusion, not elsewhere classified, R06.01 - Orthopnea Troponin-I High Sensitivity Today J90 - Pleural effusion, not elsewhere classified, R06.01 - Orthopnea SHAYNA Reflex Titer and Pattern Today J90 - Pleural effusion, not elsewhere classified, R06.01 - Orthopnea Basic Metabolic Panel Today J90 - Pleural effusion, not elsewhere classified, R06.01 - Orthopnea D Dimer High Sensitivity Today J90 - Pleural effusion, not elsewhere classified, R06.01 - Orthopnea PFT pulmonary function test Today R06.02 - Shortness of breath Coding Level of Care Code New Pt Level 5 (84761) Diagnoses Pleural effusion J90 Orthopnea R06.01 Shortness of breath R06.02 Dyspnea type: shortness of breath Congestive heart failure, unspecified HF chronicity, unspecified heart failure type I50.9 Heart failure chronicity: unspecified Heart failure type: unspecified CPT Codes Coding ([id number]) Time Spent (min) 60
[2025-07-19 21:21] VITALS: PULSE 87; O2SAT 96
== END 2025-07-19 11:20 | disposition home or self-care (01) ==
LOC: HO.HPS 10:07
PROVIDERS: PCP Internal Medicine; Referring Provider Nurse Practitioner Family; Visit Provider Hospitalist
DX: J90 Pleural effusion, not elsewhere classified (principal); R06.01 Orthopnea; R06.02 Shortness of breath; I50.9 Heart failure, unspecified
CPT/HCPCS: 94618; 99205

== ENCOUNTER 2025-07-19 10:07 | Outpatient (REF) | payer OTHER, SELFPAY ==
[2025-07-19 11:40] LABS: MANUAL DIFF FLAG NO
[2025-07-19 11:45] LABS: Venous Blood Gas Refer to POC result
[2025-07-19 11:46] LABS: VBG HCO3 30 mmol/L (22-26); VBG O2 % Saturation 43.0 %
[2025-07-19 12:13] LABS: Hematocrit 37.2 % (37.0-47.0); Hemoglobin 11.6 g/dl (12.0-16.0); Imm Gran Abs Auto 0.04 X10*3/uL (0.00-0.03); Imm Gran Pct Auto 0.4 % (0.0-0.4); Lymphocytes Absolute Auto 1.9 X10*3/uL (1.2-4.9); Mean Corpuscular HGB Conc 31.2 g/dl (31.0-35.0); Mean Corpuscular Hemoglobin 25.8 pg (27.0-33.0); Mean Corpuscular Volume 82.9 fL (80.0-98.0); NRBC Abs Auto 0.000 X10*3/uL (0.0-0.012); NRBC Pct Auto 0.0 /100WBC (0.0-0.2); Platelet Count 197 X10*3/uL (160-400); Red Blood Count 4.49 X10*6/uL (4.20-5.50); White Blood Count 9.6 X10*3/uL (4.8-10.8)
[2025-07-19 12:21] LABS: D Dimer High Sensitivity 163 NG/ML
[2025-07-19 12:39] LABS: Anion Gap 8 (12-20); Blood Urea Nitrogen 29 mg/dL (9-16); Calcium 9.5 mg/dL (8.4-10.2); Carbon Dioxide 31 mmol/L (22-29); Chloride 102 mmol/L (96-108); Estimated Glomerular Filt Rate 47; Potassium 4.4 mmol/L (3.3-5.1); Sodium 137 mmol/L (135-145)
[2025-07-19 12:41] LABS: B Type Natriuretic Peptide 20 pg/mL (<100)
[2025-07-19 12:43] LABS: Troponin-I High Sensitivity < 2.7 ng/L (<3.5-17.0)
[2025-07-22 18:59] LABS: Anti Nuclear Antibody Screen POSITIVE (NEGATIVE); Anti Nuclear Antibody Titer 1:40 titer
== END 2025-07-19 10:08 | disposition home or self-care (01) ==
LOC: HO.LAB 10:07
PROVIDERS: PCP Internal Medicine; Referring Provider Nurse Practitioner Family; Visit Provider Hospitalist
DX: J90 Pleural effusion, not elsewhere classified (principal); I50.9 Heart failure, unspecified; R06.01 Orthopnea
CPT/HCPCS: 36415; 80048; 82803; 83880; 84484; 85025; 85379; 85652; 86038; 86039; 94618

== ENCOUNTER 2025-09-21 07:41 | Outpatient (REF) | payer OTHER, SELFPAY ==
--- NOTE | 2025-09-21 08:25 | PFT_ITS ---
Flows: FEV1: 37 % of predicted at 0.66 L FVC: 40 % of predicted at 0.92 L FEV1/FVC: 72 % Bronchodilator response: Present Volumes: Total lung capacity: 45 % of predicted at 1.90 L Residual volume: 59 % of predicted at 1.06 L Slow vital capacity: 34 % of predicted at 0.84 L Expiratory reserve volume: 37 % of predicted at 0.21 L Diffusion capacity: Moderately decreased, corrects to normal after adjustment for alveolar ventilation. Impression: Severe restrictive ventilatory defect with positive bronchodilator response. Combination of restrictive ventilatory defect and decreased diffusion capacity suggests underlying pulmonary parenchymal disease. Clinical correlation is advised. MTDD
[2025-09-21 08:27] VITALS: PULSE 82
== END 2025-09-21 07:42 | disposition home or self-care (01) ==
LOC: HO.RESP 07:41
PROVIDERS: PCP Internal Medicine; Visit Provider Hospitalist
DX: R06.02 Shortness of breath (principal)
CPT/HCPCS: 94060; 94640; 94727; 94729

== ENCOUNTER → 2025-09-21 08:25 | Outpatient (BNV) | payer OTHER, SELFPAY | PROVIDERS: PCP Internal Medicine; Visit Provider Internal Medicine Pulmonary Disease | DX: J98.4 Other disorders of lung (principal) | CPT/HCPCS: 94060; 94727; 94729 ==

== ENCOUNTER 2025-09-25 08:38 | Outpatient (AMB) | payer OTHER, SELFPAY ==
[2025-09-25 08:40] VITALS: BP 156/82; PULSE 87; O2SAT 100; BMI 29.1
--- NOTE | 2025-09-25 08:40 | MHC.OFFVIS ---
Vital Signs 09/25/25 08:40 Height 5 ft Weight 148 lb 12.992 oz BMI 29.1 BP 156/82 H Blood Pressure Location Lt brachial Position Sitting Pulse 87 Pulse Source Pulse Oximeter Pulse Oximetry (%) 100 Oxygen Delivery Method Room Air Intake Visit Reasons: Shortness of breath Industrial Recruiter Required: No Accompanied by: Self / Same As Patient Allergies No Known Allergies Allergy (Verified 09/25/25 08:43) HPI Comments Details: The patient is a 75 year woman with known history of cardiomyopathy who presents with worsening shortness of breath. The patient states that for the last several months she has been having hard time laying down she because she gets significant short of breath. In the beginning she did have a CT scan of the chest which I personally reviewed demonstrating some airspace disease and what appeared to be a loculated pleural effusion. But ever since then it has been hard for her to get another CAT scan because she can not lay down. Previous x-rays have demonstrated the persistent opacity in the left hemithorax. The patient has tried multiple antibiotics also tried multiple diuretics without any significant improvement. Therefore today she was sent for referral. We did go for brief walking oximetry. The patient did desaturate when she laid flat down to about 85%. She became very short of breath and then after minute she did recover. We did ambulate and will during the ambulation she also desaturated down to 88%. She was placed on 2 L and she was able to maintain a pulse ox was 94%. Therefore, will start her on oxygen with activity and also sleep. Hopefully she can lay down a little bit. She was not able to lay down completely once she was placed on the oxygen. The patient will have blood work done. In addition to that she will need additional imaging studies and ideally a repeat CAT scan. The patient definitely has evidence of orthopnea she also has significant lower extremity edema. She is currently on Jardiance and Aldactone. Will give her additional Lasix values for the next 3 days. 09/25/2025 the patient is here for pulmonary follow-up visit. She continues to struggle with her breathing. She is using the oxygen at nighttime in his helpful. But it is still hard during the daytime when she feels very short of breath with activity. Moderate severity. The patient did undergo pulmonary function studies demonstrating moderate to severe restrictive ventilatory defect. Consistent with restrictive lung disease. Likely secondary to the effusion. Appears to be loculated. Will go ahead and request a chest x-ray but I do believe that a thoracentesis at this point is warranted based on her significant symptoms. She can have a thoracentesis both for therapeutic and diagnostic properties. In the meantime will increase her Aldactone to 50 mg. She is already on Jardiance. She needs to follow up with Cardiology. Will follow-up with her after the thoracentesis. [facility] Medical History (Updated 07/19/25 @ 21:24 by Hardeep Dominique MD) Congestive cardiac failure Dyspnea Surgical ciliated cyst HLD (hyperlipidemia) Hypertension Diabetes type 2 Family History Father No problems noted. Mother No problems noted. Social History Household Members: None Housing: House Do you presently have visiting nurse or other home services: No Patient Tobacco Use Status: Never used Tobacco Second Hand Smoke Exposure: No service: No Review of Systems Const All systems reviewed & are unremarkable except as noted in HPI and below ENT Denies dizziness Card Denies chest pain, Denies chest pain at rest, Denies chest pain with activity, Denies rapid heart rate, Denies pedal edema, Denies edema, Denies leg edema, Denies lightheadedness, Denies palpitations, Reports dyspnea, Reports dyspnea on exertion and Reports orthopnea Resp Denies cough, Reports dyspnea and Reports dyspnea on exertion GI Denies hematochezia and Denies change in stool character Musc Denies abnormal gait, Denies limited range of motion, Denies muscle cramps, Denies muscle weakness, Denies numbness, Denies radiating pain into limb, Denies stiffness and Denies tingling Neuro Denies abnormal gait, Denies dizziness, Denies numbness and Denies tingling Endo Denies palpitations Physical Exam Vital Signs: Last Vital Signs Pulse 87 09/25/25 08:40 BP 156/82 H 09/25/25 08:40 Pulse Ox 100 09/25/25 08:40 Oxygen Delivery Method Room Air 09/25/25 08:40 BMI result Body Mass Index 29.1 Const General: cooperative, healthy appearing and no acute distress Orientation/consciousness: patient oriented x3 Neck Neck: Yes normal visual inspection Chest Chest palpation & inspection: normal inspection of the chest Resp Effort & Inspection: normal respiratory effort Auscultation: no rhonchi, no wheezes and diminished lung sounds Percussion: dullness Cardio Rate: regular rate Rhythm: regular rhythm Heart sounds: S1 normal heart sound present, S2 normal heart sound present and Gallop heart sound present GI Palpation (GI): Soft to palpation Neuro General: patient oriented x3 Extrem Other: trace ankle edema General: Yes normal to inspection, No no pedal edema and No calf tenderness Psych Appearance: grossly normal Mental Status: mental status grossly normal Speech and movement: Normal speech and movement present Assessment & Plan Assessment & Plan (1) Pleural effusion: Code(s): J90 - Pleural effusion, not elsewhere classified Category: Medical (2) Orthopnea: Code(s): R06.01 - Orthopnea Category: Medical (3) Dyspnea: Code(s): R06.00 - Dyspnea, unspecified Category: Medical Qualifiers: Dyspnea type: shortness of breath Qualified Code(s): R06.02 - Shortness of breath (4) Congestive cardiac failure: Code(s): I50.9 - Heart failure, unspecified Category: Medical Qualifiers: Heart failure chronicity: unspecified Heart failure type: unspecified Qualified Code(s): I50.9 - Heart failure, unspecified Plan Increase Aldactone 25->50mg Oxygen with sleep US guided Thoracentesis for diagnostic/therapeutic purpose Left side CXR consider Bubble study Need to repeat CT chest/neck, once she is able to lay flat consider bronchoscopy to assess for tracheomalecia PFTs-moderate to severe restriction F/U 2-3 months Orders: Orders US drain thoracentesis w image Today J90 - Pleural effusion, not elsewhere classified Cytology Today J90 - Pleural effusion, not elsewhere classified Cell Count w Diff Pleural Fld Today J90 - Pleural effusion, not elsewhere classified LDH Pleural Fluid Today J90 - Pleural effusion, not elsewhere classified Total Protein Pleural Fluid Today J90 - Pleural effusion, not elsewhere classified XR chest 2V Today J90 - Pleural effusion, not elsewhere classified pH Pleural Fluid Today J90 - Pleural effusion, not elsewhere classified Routine Culture w Gram Stain Today J90 - Pleural effusion, not elsewhere classified Medications: Changed From spironolactone Take one tablet daily along with furosemide to prevent fluid overload 25 mg PO DAILY 90 tabs 3RF To spironolactone Take one tablet daily along with furosemide to prevent fluid overload 50 mg (2 x 25 mg) PO DAILY 180 tabs 1RF 90 days Coding Level of Care Code Est Pt Level 5 (34000) Diagnoses Pleural effusion J90 Orthopnea R06.01 Shortness of breath R06.02 Dyspnea type: shortness of breath Congestive heart failure, unspecified HF chronicity, unspecified heart failure type I50.9 Heart failure chronicity: unspecified Heart failure type: unspecified Time Spent (min) 35
== END 2025-09-25 09:21 | disposition home or self-care (01) ==
LOC: HO.HPS 08:39
PROVIDERS: PCP Internal Medicine; Visit Provider Hospitalist
DX: J90 Pleural effusion, not elsewhere classified (principal); R06.01 Orthopnea; R06.02 Shortness of breath; I50.9 Heart failure, unspecified
CPT/HCPCS: 99215

== ENCOUNTER 2025-09-25 08:38 | Outpatient (REF) | payer OTHER, SELFPAY ==
--- NOTE | ~2025-09-25 | XR_ITS ---
EXAMINATION: XR CHEST CLINICAL INFORMATION: J90 - Pleural effusion, not elsewhere classified COMPARISON: Previous chest x-ray most recent April 2025 and chest CTA March 2025 TECHNIQUE: 2 views of the chest were obtained. FINDINGS: Low lung volumes. Left lower lobe subsegmental atelectasis. No consolidation or evidence of pulmonary edema. Small bilateral pleural effusions, left greater than right, similar to prior exams. No pneumothorax. Cardiac and mediastinal contours are stable. Tortuous thoracic aorta unchanged. Degenerative changes of the spine. XR/XR chest 2V IMPRESSION: Low lung volumes. Small bilateral pleural effusions left greater than right, and left lower lobe subsegmental atelectasis similar to previous exams. Electronically signed by: Torrie Herrera MD 09/25/2025 10:11 AM [facility]
== END 2025-09-25 08:39 | disposition home or self-care (01) ==
LOC: HO.XRAY 08:38
PROVIDERS: PCP Internal Medicine; Visit Provider Hospitalist
DX: J90 Pleural effusion, not elsewhere classified (principal); I11.0 Hypertensive heart disease with heart failure; I50.9 Heart failure, unspecified; R06.01 Orthopnea; R06.02 Shortness of breath; Z79.899 Other long term (current) drug therapy
CPT/HCPCS: 71046

== ENCOUNTER → 2025-09-25 09:44 | Outpatient (BNV) | payer OTHER, SELFPAY | PROVIDERS: PCP Internal Medicine; Visit Provider Radiology Diagnostic Radiology | DX: J90 Pleural effusion, not elsewhere classified (principal); J98.11 Atelectasis; J98.4 Other disorders of lung | CPT/HCPCS: 71046 ==

== ENCOUNTER 2025-10-15 11:24 | Day surgery (SDC) | payer OTHER, SELFPAY ==
--- NOTE | ~2025-10-15 | US_ITS ---
EXAMINATION: US CHEST CLINICAL INFORMATION: Small left pleural effusion. Patient presents for left thoracentesis. COMPARISON: Previous chest CT March 2025 and chest x-rays most recent September 25, 2025 TECHNIQUE: Bilateral chest ultrasound was performed with grayscale imaging. FINDINGS: No pleural effusion seen bilaterally. Thoracentesis not performed. US/US soft tissue chest IMPRESSION: No pleural effusion is seen. Electronically signed by: Torrie Herrera MD 10/15/2025 03:50 PM [facility]
[2025-10-15 11:58] VITALS: BMI 28.9
[2025-10-15 12:15] LABS: MANUAL DIFF FLAG NO
[2025-10-15 12:16] VITALS: BP 151/81; PULSE 91; RESP 18; TEMP 36.8; O2SAT 97
[2025-10-15 12:21] LABS: Hematocrit 36.6 % (37.0-47.0); Hemoglobin 11.4 g/dl (12.0-16.0); Imm Gran Abs Auto 0.04 X10*3/uL (0.00-0.03); Imm Gran Pct Auto 0.4 % (0.0-0.4); Lymphocytes Absolute Auto 1.8 X10*3/uL (1.2-4.9); Mean Corpuscular HGB Conc 31.1 g/dl (31.0-35.0); Mean Corpuscular Hemoglobin 26.1 pg (27.0-33.0); Mean Corpuscular Volume 83.8 fL (80.0-98.0); NRBC Abs Auto 0.000 X10*3/uL (0.0-0.012); NRBC Pct Auto 0.0 /100WBC (0.0-0.2); Platelet Count 204 X10*3/uL (160-400); Red Blood Count 4.37 X10*6/uL (4.20-5.50); White Blood Count 9.0 X10*3/uL (4.8-10.8)
[2025-10-15 12:30] LABS: INTERNATIONAL NORM RATIO 1.0 (0.9-1.1); Prothrombin Time 12.4 SEC (11.2-13.5)
[2025-10-15 12:36] LABS: Anion Gap 11 (12-20); Blood Urea Nitrogen 28 mg/dL (9-16); Calcium 9.4 mg/dL (8.4-10.2); Carbon Dioxide 27 mmol/L (22-29); Chloride 107 mmol/L (96-108); Creatinine Clr Calc Pharmacy 47.7; Estimated Glomerular Filt Rate > 60; Potassium 4.2 mmol/L (3.3-5.1); Sodium 141 mmol/L (135-145)
[2025-10-15 13:11] VITALS: BP 146/87; PULSE 88; RESP 21; O2SAT 97
--- NOTE | 2025-10-15 13:15 | PC.NURSE ---
Ultrasound performed bilaterally by Dr Herrera; no pleural effusions or fluid seen; procedure aborted at this time
[2025-10-15 13:29] VITALS: BP 165/79; PULSE 67; RESP 20; TEMP 36.8; O2SAT 95
== END 2025-10-15 13:40 | disposition home or self-care (01) ==
PROVIDERS: Radiology Diagnostic Radiology; PCP Internal Medicine; Visit Provider Hospitalist
DX: J90 Pleural effusion, not elsewhere classified (principal); Z53.8 Procedure and treatment not carried out for other reasons; R06.01 Orthopnea; R06.02 Shortness of breath; Z99.81 Dependence on supplemental oxygen; R60.0 Localized edema; I50.9 Heart failure, unspecified; I11.0 Hypertensive heart disease with heart failure; I42.9 Cardiomyopathy, unspecified; E78.5 Hyperlipidemia, unspecified; E11.9 Type 2 diabetes mellitus without complications; Z79.84 Long term (current) use of oral hypoglycemic drugs; Z79.899 Other long term (current) drug therapy
CPT/HCPCS: 36415; 76604; 80048; 85025; 85610; J2003

== ENCOUNTER → 2025-10-15 12:59 | Outpatient (BNV) | payer OTHER, SELFPAY | PROVIDERS: PCP Internal Medicine; Visit Provider Radiology Diagnostic Radiology | DX: Z03.89 Encounter for observation for other suspected diseases and conditions ruled out (principal) | CPT/HCPCS: 76604 ==

== ENCOUNTER 2025-10-18 08:53 | Outpatient (AMB) | payer OTHER, SELFPAY ==
--- OUTSIDE RECORDS SUMMARY | 2025-10-14 23:59 | XMS_ITS | Continuity of Care Document ---
Author Organization [facility] Address [address] [place] [address]- Care Team Providers Care Medical Care Evaluation Specialist Name Role Phone Philip ELLIOTT, [id number] Date(s): 09/14/25 - 10/14/25 [facility] [address] [place] [phone] Encounter Type: Triage Allergies, Adverse Reactions, Alerts [...] opioid drug. Start Date: 03/19/25 Status: Ordered Medication Dispense Status: Completed Total Allowed Fills: 1 Fills Dispensed: 0 Freestyle Lite Lancets See Instructions, # 100 each, Refills 5, Tot. Refills 5, Maintenance, test bs daily and as needed for symptoms dx E11.9, 05/08/19 2:56:21 PM EDT, Compound Start Date: 05/08/19 Status: Ordered Medication Dispense Status: Completed Quantity: 100.0 Unit: each Total Allowed Fills: 6 Fills Dispensed: 0 Freestyle Lite Monitor See Instructions, # 100 each, Refills 0, Tot. Refills 0, Maintenance, test bs daily and as needed for symptoms dx E11.9, 05/08/19 2:56:21 PM EDT, Compound Start Date: 05/08/19 Status: Ordered Medication Dispense Status: Completed Quantity: 100.0 Unit: each Total Allowed Fills: 1 Fills Dispensed: 0 Freestyle Lite Test Strips See Instructions, # 100 each, Refills 5, Tot. Refills 5, Maintenance, test bs daily and as needed for symptoms dx E11.9, 05/08/19 2:56:21 PM EDT, Compound Start Date: 05/08/19 Status: Ordered Medication Dispense Status: Completed Quantity: 100.0 Unit: each Total Allowed Fills: 6 Fills Dispensed: 0 furosemide 40 mg oral tablet Refills 0, Maintenance, 03/19/25 2:17:00 PM EDT, Partial fill upon patient request if the prescription is for a schedule II opioid drug. Start Date: 03/19/25 Status: Ordered Medication Dispense Status: Completed Total Allowed Fills: 1 Fills Dispensed: 0 glipiZIDE 5 mg oral tablet 1, tablet, By Mouth, Daily, # 90 tablet, Refills 1, Maintenance, 10/10/25 5:21:00 AM EST, Route to Pharmacy Electronically, [facility], 150.5, cm, 07/04/25 12:50:00 EDT, Height Start Date: 10/10/25 Status: Ordered Medication Dispense Status: Completed Quantity: 90.0 Unit: tablet Total Allowed Fills: 1 Fills Dispensed: 0 Jardiance 10 mg oral tablet 0 Refills, Maintenance, 03/19/25 2:17:00 PM EDT, Partial fill upon patient request if the prescription is for a schedule II opioid drug. Start Date: 03/19/25 Status: Ordered Medication Dispense Status: Completed Total Allowed Fills: 1 Fills Dispensed: 0 losartan 100 mg oral tablet 1 tablet = 100 mg, By Mouth, Daily, # 90 tablet, 1 Refills, Maintenance, 03/19/25 2:23:00 PM EDT, [facility], Partial fill upon patient request if the prescription is for a schedule II opioid drug., 150.5, cm, 03/19/25 14:20:00 EDT, Height Start Date: 03/19/25 Stop Date: 09/15/25 Status: Ordered Medication Dispense Status: Completed Quantity: 90.0 Unit: tablet Total Allowed Fills: 2 Fills Dispensed: 0 metFORMIN 1000 mg oral tablet 1 tablet, By Mouth, 2 times a day, # 180 tablet, 0 Refills, Maintenance, 07/30/25 3:51:00 PM EDT, [id number], 150.5, cm, 07/04/25 12:50:00 EDT, Height Start Date: 07/30/25 Status: Ordered Medication Dispense Status: Completed Quantity: 180.0 Unit: tablet Total Allowed Fills: 1 Fills Dispensed: 0 omeprazole 20 mg oral enteric coated capsule 1 capsule, By Mouth, Daily, # 90 capsule, 1 Refills, Maintenance, 09/14/25 12:20:00 PM EST, [id number], 150.5, cm, 07/04/25 12:50:00 EDT, Height Start Date: 09/14/25 Status: Ordered Medication Dispense Status: Completed Quantity: 90.0 Unit: capsule Total Allowed Fills: 2 Fills Dispensed: 0 simvastatin 40 mg oral tablet 1, tablet, By Mouth, Daily at bedtime, # 90 tablet, Refills 1, Tot. Refills 1, Maintenance, 08/28/25 5:35:00 AM EDT, Route to Pharmacy Electronically, [facility], 150.5, cm, 07/04/25 12:50:00 EDT, Height Start Date: 08/28/25 Status: Ordered Medication Dispense Status: Completed Quantity: 90.0 Unit: tablet Total Allowed Fills: 2 Fills Dispensed: 0 spironolactone 25 mg oral tablet Refills 0, Maintenance, 03/19/25 2:17:00 PM EDT, Partial fill upon patient request if the prescription is for a schedule II opioid drug. Start Date: 03/19/25 Status: Ordered Medication Dispense Status: Completed Total Allowed Fills: 1 Fills Dispensed: 0 Vitamin E By Mouth, 0 Refills, Maintenance, 03/19/25 2:17:00 PM EDT, Partial fill upon patient request if the prescription is for a schedule II opioid drug. Start Date: 03/19/25 Status: Ordered Medication Dispense Status: Completed Total Allowed Fills: 1 Fills Dispensed: 0 Problem List Condition Confirmation Course Effective Dates Status H ealth Status Informant Diabetes mellitus Confirmed Active Diastolic dysfunction Confirmed Active Gastritis Confirmed Active Hyperlipidemia Confirmed Active Hypertension Confirmed Active Breast cancer Confirmed Active Obese class I Confirmed Active Obesity Confirmed Active Social History Social History Type Response Sexual Sexually involved in last 6 months: No. Gender identity: Female. Preferred pronoun: She/Her/Hers. Smoking Status Never (less than 100 in lifetime) entered on: 12/08/19 Sex Sex Representation Female (finding) Patient Care team information Care Team Personnel Name: Jeff Palacios MD Position: [facility] Physician - Primary Care Member Role: PCP Address: [address] [place] [address] Telecom: Care Team Related Persons Name: MATT JOHNSON Name: MADALYN JOHNSON Name: TERESA JOHNSON Insurance Providers Guarantor name: YVONNE [facility] Information #: 1 Payer: [employer] Payer Identifier: ELIZABETH Member Number: [id number] Group Number: [id number] Subscriber Identifier: NA Relationship to Subscriber: self Coverage Type: Commercial Managed Care - HMO Coverage Verification Date: NA Telecom: NA Address:
[2025-10-18 09:15] VITALS: BP 170/82; PULSE 82
--- NOTE | 2025-10-18 09:15 | MHC.OFFVIS ---
Vital Signs 10/18/25 09:15 BP 170/82 H Blood Pressure Location Lt brachial Position Sitting Pulse 82 Intake Visit Reasons: 6MWT Allergies No Known Allergies Allergy (Verified 09/25/25 08:43) [facility] Medical History (Updated 07/19/25 @ 21:24 by Hardeep Dominique MD) Congestive cardiac failure Dyspnea Surgical ciliated cyst HLD (hyperlipidemia) Hypertension Diabetes type 2 Family History Father No problems noted. Mother No problems noted. Social History Household Members: None Housing: House Do you presently have visiting nurse or other home services: No Patient Tobacco Use Status: Never used Tobacco Second Hand Smoke Exposure: No service: No Physical Exam Vital Signs: Last Vital Signs Pulse 82 10/18/25 09:15 BP 170/82 H 10/18/25 09:15 Office Procedures 6 Minute Walk Time:: 08:58 SPO2 % at rest: 97 Pulse at rest: 86 SPO2 % during excercise: 91 Pulse during excercise: 98 SPO2 % after excercise: 93 Pulse after excercise: 95 Velvet Score: 8 Performance Observations:: Patient walked unassisted on level ground. Maintained O2 saturation of 91-99% with pulse of 89-101 for the entirety of the walk. Patient reports she is very short of breath with any activity. It is noted she is very sob with the walk and even when talking. Patient did not require the use of supplemental oxygen. 19093 - 6 Minute Walk Assessment & Plan Assessment & Plan (1) Dyspnea: Code(s): R06.00 - Dyspnea, unspecified Category: Medical Qualifiers: Dyspnea type: shortness of breath Qualified Code(s): R06.02 - Shortness of breath Plan 6 minute walk test, no evidence of any significant hypoxia Orders: Orders AMB 6 minute walk Today R06.02 - Shortness of breath Coding Level of Care Code Est Pt Level 1 (69135) Diagnoses Shortness of breath R06.02 Dyspnea type: shortness of breath CPT Codes Coding ([id number])
[2025-10-18 09:25] VITALS: PULSE 86; O2SAT 97
== END 2025-10-18 11:45 | disposition home or self-care (01) ==
PROVIDERS: PCP Internal Medicine; Visit Provider Hospitalist
DX: R06.02 Shortness of breath (principal)
CPT/HCPCS: 94618; 99499

== ENCOUNTER → 2025-10-18 08:53 | Outpatient (BNVA) | payer OTHER, SELFPAY | PROVIDERS: PCP Internal Medicine; Visit Provider Hospitalist | DX: R06.02 Shortness of breath (principal) | CPT/HCPCS: 94618 ==